=== PATIENT | female | born 1955 | race African-American/Black ===

== ENCOUNTER 2016-07-24 22:22 | Inpatient (IN) | payer MEDICARE, MEDICAID ==
[~2016-07-24] VITALS: Ht 165.1 cm; Wt 98.1 kg
[2016-07-24] MEDS ORDERED: INSLAN SQ (22:37)
[2016-07-24] MEDS ORDERED: AMIT25TA9 PO (22:37)
[2016-07-24] MEDS ORDERED: CLON.3 PO (22:37)
[2016-07-24] MEDS ORDERED: TRAZ-147 PO (22:37)
[2016-07-24] MEDS ORDERED: HYDR-309 PO (22:37)
[2016-07-24] MEDS ORDERED: PREG75 PO (22:37)
[2016-07-24] MEDS ORDERED: TRAM50TA4 PO (22:37)
[2016-07-24] MEDS ORDERED: INSNOV SQ (22:37)
[2016-07-25] VITALS (9 sets, daily range): BP systolic 125–235; BP diastolic 53–105
[2016-07-25 00:43] LABS: BASOPHILS # (AUTO) 0.05 K/uL (0.00-0.20); BASOPHILS % (AUTO) 0.3 % (0.0-2.0); EOSINOPHILS # (AUTO) 0.25 K/uL (0.00-0.70); EOSINOPHILS % (AUTO) 1.55 % (1.0-6.0); HEMATOCRIT 31.9 % (36-46); HEMOGLOBIN 10.6 g/dL (12.0-16.0); LYMPHOCYTES # (AUTO) 1.7 K/uL (1.0-4.8); LYMPHOCYTES % (AUTO) 10.8 % (22.0-44.0); MEAN CORPUSCULAR HGB CONC 33.1 G/dL (31.0-37.0); MEAN CORPUSCULAR VOLUME 85 fL (80-100); MONOCYTES # (AUTO) 1.1 K/uL (0.1-1.0); MONOCYTES % (AUTO) 6.7 % (2.0-9.0); NEUTROPHILS # (AUTO) 12.8 K/uL (1.8-7.7); NEUTROPHILS % (AUTO) 80.6 % (40.0-70.0); PLATELET COUNT (AUTO) 417 K/uL (150-450); RED BLOOD CELL COUNT(AUTO) 3.77 MIL/uL (4.00-5.20); RED CELL DISTRIBUTION WIDTH 16.1 % (11.5-14.5); WHITE BLOOD COUNT (AUTO) 15.8 K/uL (4.5-11.0)
[2016-07-25 00:51] LABS: CALCIUM, TOTAL 9.3 mg/dL (8.8-10.5); CREATININE 8.82 mg/dL (0.60-1.30); POTASSIUM 4.9 mmol/L (3.5-5.1)
[2016-07-25 00:57] LABS: ALBUMIN 3.7 g/dL (3.4-5.0); BILIRUBIN,TOTAL 0.5 mg/dL (0.1-1.0); TOTAL PROTEIN, SERUM 8.1 g/dL (6.4-8.2)
[2016-07-25] MEDS ORDERED: BENZONATATE 100 MG CAPSULE PO ONE (01:30)
[2016-07-25] MEDS ORDERED: ONDANSETRON HCL 4 MG/2 ML VIAL IVP ONE (01:45)
[2016-07-25] MEDS ORDERED: ACETAMINOPHEN 325 MG TABLET PO PRN ×2 (01:45→02:45)
[2016-07-25] MEDS ORDERED: 0.9% SODIUM CHLORIDE 10 ML SYRINGE IVP PRN ×2 (01:45→19:15)
[2016-07-25] MEDS ORDERED: HYDROmorphone 2 MG/ML SYRINGE IVP ONE (01:45)
[2016-07-25] MEDS ORDERED: ONDANSETRON HCL 4 MG/2 ML VIAL IVP PRN ×2 (01:45→02:45)
[2016-07-25] MEDS ORDERED: CefTRIAXone 1 GM/DEXTROSE 50 ML IV ONE (01:45)
[2016-07-25] MEDS ORDERED: MethylPREDNISolone SOD SUCC 125 MG/2 ML VIAL IVP ONE (02:00)
[2016-07-25] MEDS ORDERED: IPRATROPIUM BROMIDE 0.5 MG/2.5 ML NEB SOLUTION NEB ONE (02:00)
[2016-07-25] MEDS ORDERED: ALBUTEROL SULFATE 5 MG/ML 20 ML NEB SOLN [BULK] NEB ONE (02:00)
[2016-07-25 02:31] LABS: INFLUENZA TYPE B NEGATIVE FOR TYPE B (NEGATIVE)
[2016-07-25] MEDS ORDERED: OxyCODONE HCL/ACETAMINOPHEN 5-325 MG TABLET PO PRN (02:45)
[2016-07-25] MEDS ORDERED: ALBUTEROL SULFATE 2.5 MG/0.5 ML NEB SOLUTION NEB PRN (02:45)
[2016-07-25] MEDS ORDERED: BISACODYL 10 MG RECTAL RECTAL SUPPOSITORY PR PRN (02:45)
[2016-07-25] MEDS ORDERED: IPRATROPIUM BROMIDE 0.5 MG/2.5 ML NEB SOLUTION NEB PRN (02:45)
[2016-07-25] MEDS ORDERED: ZOLPIDEM TARTRATE 5 MG TABLET PO PRN (02:45)
[2016-07-25] MEDS ORDERED: CloNIDine HCL 0.1 MG TABLET PO ONE (02:45)
[2016-07-25] MEDS ORDERED: MAGNESIUM HYDROXIDE SUSPENSION 30 ML UDCUP PO PRN (02:45)
[2016-07-25] MEDS ORDERED: DEXTROSE 50%-WATER 25 GM/50 ML SYRINGE IVP PRN (02:45)
[2016-07-25] MEDS ORDERED: IPRATROPIUM BROMIDE 0.5 MG/2.5 ML NEB SOLUTION NEB SCH (03:00)
[2016-07-25] MEDS ORDERED: ALBUTEROL SULFATE 2.5 MG/0.5 ML NEB SOLUTION NEB SCH (03:00)
[2016-07-25] MEDS ORDERED: LABETALOL HCL 5 MG/ML 20 ML VIAL IVP PRN (05:00)
[2016-07-25 05:01] LABS: GLUCOSE,POINT OF CARE 173 MG/DL (70-110)
[2016-07-25] MEDS: LORazepam 2 MG/ML VIAL IVP PRN ×4 (05:22→18:31)
[2016-07-25] MEDS ORDERED: MORPHINE SULFATE 2 MG/ML SYRINGE IVP PRN (06:30)
[2016-07-25 11:32] LABS: GLUCOSE COMMENT 1 Received Meds; GLUCOSE,POINT OF CARE 193 MG/DL (70-110)
[2016-07-25] MEDS: AZITHROMYCIN 500 MG/NS 250 ML IV SCH (12:59)
[2016-07-25] MEDS: HEPARIN SODIUM,PORCINE 5,000 UNITS/ML VIAL SQ SCH ×2 (12:59→21:01)
[2016-07-25] MEDS: AMITRIPTYLINE HCL 25 MG TABLET PO SCH (12:59)
[2016-07-25] MEDS: PREGABALIN 75 MG CAPSULE PO SCH ×2 (12:59→21:01)
[2016-07-25] MEDS ORDERED: SODIUM CHLORIDE 0.9% 500 ML IV ONE (13:06)
[2016-07-25] MEDS: INSULIN ASPART 100 UNITS/ML SQ PRN ×3 (13:46→21:02)
[2016-07-25] MEDS: TraZODone HCL 100 MG TABLET PO SCH (21:01)
[2016-07-26 04:31] VITALS: BP 120/72
[2016-07-26] MEDS: INSULIN ASPART 100 UNITS/ML SQ PRN ×3 (06:06→20:58)
[2016-07-26 06:20] LABS: ALBUMIN 3.7 g/dL (3.4-5.0); BILIRUBIN,TOTAL 0.4 mg/dL (0.1-1.0); CALCIUM, TOTAL 9.9 mg/dL (8.8-10.5); CREATININE 7.1 mg/dL (0.60-1.30); MAGNESIUM 2.7 mg/dL (1.80-2.40); PHOSPHORUS 8.2 mg/dL (2.5-4.9); POTASSIUM 4.9 mmol/L (3.5-5.1); THYROID STIMULATING HORMONE 0.27 uIU/mL (0.36-3.74); TOTAL PROTEIN, SERUM 8.2 g/dL (6.4-8.2)
[2016-07-26 06:51] LABS: BASOPHILS % (AUTO) 0.3 % (0.0-2.0); EOSINOPHILS % (AUTO) 0.4 % (1.0-6.0); HEMATOCRIT 34.7 % (36-46); LYMPHOCYTES # (AUTO) 1.6 K/uL (1.0-4.8); LYMPHOCYTES % (AUTO) 14.3 % (22.0-44.0); MEAN CORPUSCULAR HEMOGLOBIN 27.4 pg (26.0-34.0); MEAN CORPUSCULAR HGB CONC 31.6 G/dL (31.0-37.0); MEAN CORPUSCULAR VOLUME 87 fL (80-100); MONOCYTES # (AUTO) 1.6 K/uL (0.1-1.0); MONOCYTES % (AUTO) 14.5 % (2.0-9.0); NEUTROPHILS # (AUTO) 7.7 K/uL (1.8-7.7); NEUTROPHILS % (AUTO) 70.5 % (40.0-70.0); PLATELET COUNT (AUTO) 484 K/uL (150-450); RED CELL DISTRIBUTION WIDTH 16.3 % (11.5-14.5)
[2016-07-26 07:15] LABS: HEMOGLOBIN A1C 7.8 % (4.5-6.2)
[2016-07-26 07:31] VITALS: BP 147/79
[2016-07-26] MEDS: AZITHROMYCIN 500 MG/NS 250 ML IV SCH (08:19)
[2016-07-26] MEDS: HEPARIN SODIUM,PORCINE 5,000 UNITS/ML VIAL SQ SCH ×2 (08:20→19:49)
[2016-07-26] MEDS: AMITRIPTYLINE HCL 25 MG TABLET PO SCH (08:20)
[2016-07-26] MEDS: PREGABALIN 75 MG CAPSULE PO SCH ×2 (08:20→19:48)
[2016-07-26] MEDS: VITAMIN B COMP/VIT C/FOLIC ACID CAPSULE PO SCH (08:38)
[2016-07-26 08:47] LABS: GLUCOSE COMMENT 1 Received Meds; GLUCOSE,POINT OF CARE 178 MG/DL (70-110)
[2016-07-26 08:47] LABS: GLUCOSE COMMENT 1 Received Meds; GLUCOSE,POINT OF CARE 176 MG/DL (70-110)
[2016-07-26 08:47] LABS: GLUCOSE COMMENT 1 Received Meds; GLUCOSE,POINT OF CARE 143 MG/DL (70-110)
[2016-07-26 11:41] VITALS: BP_SYST 147
[2016-07-26 16:03] VITALS: BP 116/51
[2016-07-26 17:07] LABS: GLUCOSE,POINT OF CARE 110 MG/DL (70-110)
[2016-07-26 17:07] LABS: GLUCOSE COMMENT 1 Received Meds; GLUCOSE,POINT OF CARE 149 MG/DL (70-110)
[2016-07-26] MEDS: GuaiFENesin/D-METHORPHAN [SUGAR-FREE] 200-20MG/10 ML SYRUP UDCUP PO PRN (18:50)
[2016-07-26] MEDS: TraZODone HCL 100 MG TABLET PO SCH (19:49)
[2016-07-26 19:58] VITALS: BP 150/77
[2016-07-27] VITALS: BP 145/83
[2016-07-27] MEDS: BENZONATATE 100 MG CAPSULE PO SCH ×4 (00:06→23:54)
[2016-07-27 00:42] LABS: GLUCOSE,POINT OF CARE 202 MG/DL (70-110)
[2016-07-27 04:38] VITALS: BP 164/71
[2016-07-27] MEDS: INSULIN ASPART 100 UNITS/ML SQ PRN ×4 (05:21→20:46)
[2016-07-27 05:50] LABS: BASOPHILS % (AUTO) 0.5 % (0.0-2.0); EOSINOPHILS % (AUTO) 2.3 % (1.0-6.0); HEMATOCRIT 31.6 % (36-46); HEMOGLOBIN 10.2 g/dL (12.0-16.0); LYMPHOCYTES # (AUTO) 3.1 K/uL (1.0-4.8); LYMPHOCYTES % (AUTO) 30.8 % (22.0-44.0); MEAN CORPUSCULAR HEMOGLOBIN 27.8 pg (26.0-34.0); MEAN CORPUSCULAR HGB CONC 32.1 G/dL (31.0-37.0); MEAN CORPUSCULAR VOLUME 86 fL (80-100); MONOCYTES # (AUTO) 1.1 K/uL (0.1-1.0); MONOCYTES % (AUTO) 11.1 % (2.0-9.0); NEUTROPHILS # (AUTO) 5.6 K/uL (1.8-7.7); NEUTROPHILS % (AUTO) 55.3 % (40.0-70.0); PLATELET COUNT (AUTO) 417 K/uL (150-450); RED BLOOD CELL COUNT(AUTO) 3.66 MIL/uL (4.00-5.20); RED CELL DISTRIBUTION WIDTH 15.7 % (11.5-14.5); WHITE BLOOD COUNT (AUTO) 10.1 K/uL (4.5-11.0)
[2016-07-27 06:31] LABS: ALBUMIN 3.3 g/dL (3.4-5.0); BILIRUBIN,TOTAL 0.4 mg/dL (0.1-1.0); CALCIUM, TOTAL 8.9 mg/dL (8.8-10.5); CREATININE 9.32 mg/dL (0.60-1.30); POTASSIUM 5.3 mmol/L (3.5-5.1); TOTAL PROTEIN, SERUM 7.5 g/dL (6.4-8.2)
[2016-07-27 07:02] LABS: GLUCOSE,POINT OF CARE 154 MG/DL (70-110)
[2016-07-27] MEDS ORDERED: SODIUM CHLORIDE 0.9% 2,000 ML IV ONE (07:31)
[2016-07-27 08:09] VITALS: BP 154/87
[2016-07-27] MEDS: AZITHROMYCIN 500 MG/NS 250 ML IV SCH (08:11)
[2016-07-27] MEDS: HEPARIN SODIUM,PORCINE 5,000 UNITS/ML VIAL SQ SCH ×2 (08:13→20:46)
[2016-07-27] MEDS: PREGABALIN 75 MG CAPSULE PO SCH ×2 (08:13→20:46)
[2016-07-27] MEDS: AMITRIPTYLINE HCL 25 MG TABLET PO SCH (08:13)
[2016-07-27] MEDS: VITAMIN B COMP/VIT C/FOLIC ACID CAPSULE PO SCH (08:13)
[2016-07-27] MEDS: LORazepam 2 MG/ML VIAL IVP PRN (10:02)
[2016-07-27] MEDS: GuaiFENesin/D-METHORPHAN [SUGAR-FREE] 200-20MG/10 ML SYRUP UDCUP PO PRN ×2 (10:05→15:03)
[2016-07-27 11:52] LABS: GLUCOSE,POINT OF CARE 158 MG/DL (70-110)
[2016-07-27 15:15] VITALS: BP 126/63
[2016-07-27 17:52] LABS: GLUCOSE COMMENT 1 Received Meds; GLUCOSE,POINT OF CARE 245 MG/DL (70-110)
[2016-07-27 19:57] VITALS: BP 149/66
[2016-07-27] MEDS: TraZODone HCL 100 MG TABLET PO SCH (20:46)
[2016-07-27 20:57] LABS: GLUCOSE COMMENT 1 Received Meds; GLUCOSE,POINT OF CARE 160 MG/DL (70-110)
[2016-07-27 23:36] VITALS: BP 158/75
[2016-07-28 05:03] VITALS: BP 130/70
[2016-07-28 06:24] LABS: BASOPHILS % (AUTO) 0.4 % (0.0-2.0); EOSINOPHILS % (AUTO) 2.2 % (1.0-6.0); HEMATOCRIT 32.3 % (36-46); HEMOGLOBIN 10.4 g/dL (12.0-16.0); LYMPHOCYTES # (AUTO) 2.4 K/uL (1.0-4.8); LYMPHOCYTES % (AUTO) 19.2 % (22.0-44.0); MEAN CORPUSCULAR HGB CONC 32.1 G/dL (31.0-37.0); MEAN CORPUSCULAR VOLUME 87 fL (80-100); MONOCYTES # (AUTO) 1.1 K/uL (0.1-1.0); MONOCYTES % (AUTO) 8.8 % (2.0-9.0); NEUTROPHILS # (AUTO) 8.5 K/uL (1.8-7.7); NEUTROPHILS % (AUTO) 69.4 % (40.0-70.0); PLATELET COUNT (AUTO) 417 K/uL (150-450); RED BLOOD CELL COUNT(AUTO) 3.71 MIL/uL (4.00-5.20); RED CELL DISTRIBUTION WIDTH 15.8 % (11.5-14.5); WHITE BLOOD COUNT (AUTO) 12.3 K/uL (4.5-11.0)
[2016-07-28 07:11] LABS: ALBUMIN 3.4 g/dL (3.4-5.0); BILIRUBIN,TOTAL 0.4 mg/dL (0.1-1.0); CALCIUM, TOTAL 9.3 mg/dL (8.8-10.5); CREATININE 6.8 mg/dL (0.60-1.30); POTASSIUM 5.5 mmol/L (3.5-5.1); TOTAL PROTEIN, SERUM 7.6 g/dL (6.4-8.2)
[2016-07-28 07:24] VITALS: BP 157/80
[2016-07-28] MEDS: AZITHROMYCIN 500 MG/NS 250 ML IV SCH (08:00)
[2016-07-28] MEDS: PREGABALIN 75 MG CAPSULE PO SCH (08:00)
[2016-07-28] MEDS: BENZONATATE 100 MG CAPSULE PO SCH ×2 (08:00→16:19)
[2016-07-28] MEDS: AMITRIPTYLINE HCL 25 MG TABLET PO SCH (08:00)
[2016-07-28] MEDS: HEPARIN SODIUM,PORCINE 5,000 UNITS/ML VIAL SQ SCH (08:01)
[2016-07-28] MEDS: VITAMIN B COMP/VIT C/FOLIC ACID CAPSULE PO SCH (08:01)
[2016-07-28 11:10] VITALS: BP 152/68
[2016-07-28] MEDS: INSULIN ASPART 100 UNITS/ML SQ PRN (11:51)
[2016-07-28] MEDS ORDERED: SODIUM POLYSTYRENE SULFONATE 15 GM/60 ML SUSPENSION BOTTLE PO ONE (12:00)
[2016-07-28 12:22] LABS: GLUCOSE COMMENT 1 Received Meds; GLUCOSE,POINT OF CARE 246 MG/DL (70-110)
[2016-07-28] MEDS ORDERED: AmLODIPine BESYLATE 5 MG TABLET PO SCH (13:00)
[2016-07-28 15:12] VITALS: BP 156/80
[2016-07-28 17:22] LABS: GLUCOSE,POINT OF CARE 139 MG/DL (70-110)
== END 2016-07-28 19:04 | DRG 871 ==
LOC: EMS 22:25 → 6N 07-25 02:08
PROVIDERS: ADMIT Internal Medicine; ATTEND Internal Medicine
PROC: 5A1D60Z (ICD-10-PCS; principal; 2016-07-25)
DX: A41.9 Sepsis, unspecified organism (principal); J18.9 Pneumonia, unspecified organism; N18.6 End stage renal disease; J44.0 Chronic obstructive pulmonary disease with (acute) lower respiratory infection; I42.9 Cardiomyopathy, unspecified; I13.2 Hypertensive heart and chronic kidney disease with heart failure and with stage 5 chronic kidney disease, or end stage renal disease; D63.8 Anemia in other chronic diseases classified elsewhere; E78.5 Hyperlipidemia, unspecified; I25.9 Chronic ischemic heart disease, unspecified; I51.7 Cardiomegaly; I50.9 Heart failure, unspecified; F17.210 Nicotine dependence, cigarettes, uncomplicated; D63.1 Anemia in chronic kidney disease; E11.65 Type 2 diabetes mellitus with hyperglycemia; E11.22 Type 2 diabetes mellitus with diabetic chronic kidney disease; H93.19 Tinnitus, unspecified ear; E87.5 Hyperkalemia; Z79.899 Other long term (current) drug therapy; Z88.0 Allergy status to penicillin; Z79.4 Long term (current) use of insulin; Z79.1 Long term (current) use of non-steroidal anti-inflammatories (NSAID); Z98.890 Other specified postprocedural states; Z90.710 Acquired absence of both cervix and uterus; Z99.2 Dependence on renal dialysis
CPT/HCPCS: 82306; 82962; 83036; 83605; 83735; 84100; 84443; 87040; 87081; 87340; 87804; 90935; 93005; 93306; 96365; 96375; 99285; J0456; J0696; J1170; J1644; J2060; J2270; J2405; J2930; J3490; J7030; J7040

== ENCOUNTER 2016-08-01 18:46 | Inpatient (IN) | payer MEDICARE, MEDICAID ==
[~2016-08-01] VITALS: Ht 170.2 cm; Wt 103.2 kg
[~2016-08-01 18:46] MED LIST: AMIT25TA9 PO; CLON.3 PO; HYDR-309 PO; INSLAN SQ; INSNOV SQ; PREG75 PO; TRAM50TA4 PO; TRAZ-147 PO
[2016-08-01 19:19] LABS: BASOPHILS % (AUTO) 0.4 % (0.0-2.0); EOSINOPHILS % (AUTO) 1.2 % (1.0-6.0); HEMOGLOBIN 9.4 g/dL (12.0-16.0); LYMPHOCYTES # (AUTO) 1.5 K/uL (1.0-4.8); LYMPHOCYTES % (AUTO) 9.4 % (22.0-44.0); MEAN CORPUSCULAR HEMOGLOBIN 27.8 pg (26.0-34.0); MEAN CORPUSCULAR HGB CONC 32.5 G/dL (31.0-37.0); MEAN CORPUSCULAR VOLUME 86 fL (80-100); MONOCYTES # (AUTO) 0.7 K/uL (0.1-1.0); MONOCYTES % (AUTO) 4.4 % (2.0-9.0); NEUTROPHILS # (AUTO) 13.1 K/uL (1.8-7.7); NEUTROPHILS % (AUTO) 84.6 % (40.0-70.0); PLATELET COUNT (AUTO) 418 K/uL (150-450); RED BLOOD CELL COUNT(AUTO) 3.39 MIL/uL (4.00-5.20); WHITE BLOOD COUNT (AUTO) 15.5 K/uL (4.5-11.0)
[2016-08-01 19:32] LABS: PROTHROMBIN TIME 10.3 SEC (9.4-11.6)
[2016-08-01 19:39] LABS: B-TYPE NATRIURETIC PEPTIDE 1210 pg/mL (0-100)
[2016-08-01 19:46] LABS: ANION GAP 12 mmol/L (8-16); CALCIUM, TOTAL 9.3 mg/dL (8.8-10.5); CARBON DIOXIDE 30 mmol/L (22-29); CHLORIDE 95 mmol/L (98-107); CREATININE 4.25 mg/dL (0.60-1.30); GLOMERULAR FILTR. RATE CALC 13 mL/min (>60); POTASSIUM 4.7 mmol/L (3.5-5.1); SODIUM SERUM 137 mmol/L (136-145); UREA NITROGEN, BLOOD 27 mg/dL (7-18)
[2016-08-01 20:09] LABS: ALANINE AMINOTRANSFERASE 14 U/L (12-78); ALBUMIN 3.5 g/dL (3.4-5.0); ASPARTATE AMINOTRANSFERASE 13 U/L (15-37); BILIRUBIN,TOTAL 0.4 mg/dL (0.1-1.0); CREATINE KINASE MB 2.2 ng/mL (0-5); CREATINE KINASE, TOTAL 88 U/L (26-192); TOTAL PROTEIN, SERUM 7.9 g/dL (6.4-8.2)
[2016-08-01 21:48] LABS: APPEARANCE,URINE CLEAR (CLEAR); GLUCOSE, URINE (UA) 100 mg/dL (NEGATIVE); KETONES,URINE NEGATIVE (NEGATIVE); LEUKOCYTE ESTERASE ,URINE NEGATIVE (NEGATIVE); OCCULT BLOOD,URINE NEGATIVE (NEGATIVE); PROTEIN,URINE SEE CONFIRM (NEGATIVE)
[2016-08-01 21:53] LABS: ADD UA MICROSCOPIC YES
[2016-08-01 22:02] LABS: SULFOSALICYLIC ACID,URINE 2+ (Negative)
[2016-08-01 22:04] LABS: SQUAMOUS EPITHELIAL CELL,UR Few /LPF (None Seen)
[2016-08-01 22:05] LABS: RBC,URINE 0-2 /HPF (0-2); WBC,URINE 0-2 /HPF (0-5)
[2016-08-01] MEDS ORDERED: HEPARIN SODIUM 25000 UNITS/D5W 250 ML IV PRN ×2 (23:00→23:30)
[2016-08-01] MEDS ORDERED: ASPIRIN 81 MG CHEWABLE TABLET PO ONE (23:15)
[2016-08-01] MEDS ORDERED: HEPARIN SODIUM,PORCINE 5,000 UNITS/ML VIAL IVP ONE (23:30)
[2016-08-01] MEDS ORDERED: HEPARIN SODIUM,PORCINE 5,000 UNITS/ML VIAL IVP PRN ×2 (23:30)
[2016-08-02 00:12] VITALS: BP 183/88
[2016-08-02 04:24] VITALS: BP 174/82
[2016-08-02 07:02] VITALS: BP 149/77
== END 2016-08-02 08:50 | disposition left against medical advice (07) | DRG 70 ==
LOC: EMS 18:49 → 5S 22:37
PROVIDERS: ADMIT Hospitalist; ATTEND Hospitalist
DX: G93.40 Encephalopathy, unspecified (principal); N18.6 End stage renal disease; I13.2 Hypertensive heart and chronic kidney disease with heart failure and with stage 5 chronic kidney disease, or end stage renal disease; E11.22 Type 2 diabetes mellitus with diabetic chronic kidney disease; F03.90 Unspecified dementia, unspecified severity, without behavioral disturbance, psychotic disturbance, mood disturbance, and anxiety; I50.9 Heart failure, unspecified; F17.210 Nicotine dependence, cigarettes, uncomplicated; J44.9 Chronic obstructive pulmonary disease, unspecified; Z79.899 Other long term (current) drug therapy; Z79.891 Long term (current) use of opiate analgesic; Z79.1 Long term (current) use of non-steroidal anti-inflammatories (NSAID); Z79.4 Long term (current) use of insulin; Z88.0 Allergy status to penicillin; Z90.710 Acquired absence of both cervix and uterus; Z99.2 Dependence on renal dialysis; Z98.890 Other specified postprocedural states
CPT/HCPCS: 87081; 93005; 96374; 99285; J1644

== ENCOUNTER 2016-09-17 22:37 | Inpatient (IN) | payer MEDICARE, MEDICAID ==
[~2016-09-17] VITALS: Ht 165.1 cm; Wt 96.9 kg
[2016-09-17] MEDS ORDERED: NITROGLYCERIN 2% (1 GM=INCH) PACKET TP ONE (23:00)
[2016-09-17] MEDS ORDERED: MORPHINE SULFATE 4 MG/ML SYRINGE IVP ONE (23:00)
[2016-09-17 23:18] LABS: BASOPHILS % (AUTO) 0.5 % (0.0-2.0); EOSINOPHILS % (AUTO) 2.7 % (1.0-6.0); HEMOGLOBIN 10.9 g/dL (12.0-16.0); LYMPHOCYTES # (AUTO) 1.8 K/uL (1.0-4.8); LYMPHOCYTES % (AUTO) 14.3 % (22.0-44.0); MEAN CORPUSCULAR HEMOGLOBIN 27.8 pg (26.0-34.0); MEAN CORPUSCULAR HGB CONC 31.9 G/dL (31.0-37.0); MEAN CORPUSCULAR VOLUME 87 fL (80-100); MONOCYTES # (AUTO) 0.4 K/uL (0.1-1.0); NEUTROPHILS # (AUTO) 10.3 K/uL (1.8-7.7); NEUTROPHILS % (AUTO) 79.5 % (40.0-70.0); PLATELET COUNT (AUTO) 454 K/uL (150-450); RED BLOOD CELL COUNT(AUTO) 3.92 MIL/uL (4.00-5.20); RED CELL DISTRIBUTION WIDTH 15.2 % (11.5-14.5); WHITE BLOOD COUNT (AUTO) 12.9 K/uL (4.5-11.0)
[2016-09-17 23:43] LABS: CALCIUM, TOTAL 8.8 mg/dL (8.8-10.5); CREATININE 6.26 mg/dL (0.60-1.30); POTASSIUM 4.3 mmol/L (3.5-5.1)
[2016-09-17 23:49] LABS: ALBUMIN 3.4 g/dL (3.4-5.0); BILIRUBIN,TOTAL 0.3 mg/dL (0.1-1.0); TOTAL PROTEIN, SERUM 8.1 g/dL (6.4-8.2)
[2016-09-18] VITALS (8 sets, daily range): BP systolic 126–207; BP diastolic 52–91
[2016-09-18] MEDS ORDERED: FUROSEMIDE 40 MG/4 ML VIAL IVP ONE (01:00)
[2016-09-18] MEDS ORDERED: LABETALOL HCL 5 MG/ML 20 ML VIAL IVP ONE (01:15)
[2016-09-18] MEDS ORDERED: 0.9% SODIUM CHLORIDE 10 ML SYRINGE IVP PRN ×2 (01:30→02:30)
[2016-09-18] MEDS ORDERED: ACETAMINOPHEN 325 MG TABLET PO PRN (01:30)
[2016-09-18] MEDS ORDERED: ONDANSETRON HCL 4 MG/2 ML VIAL IVP PRN ×2 (01:30→02:30)
[2016-09-18] MEDS ORDERED: IPRATROPIUM BROMIDE 0.5 MG/2.5 ML NEB SOLUTION NEB PRN (02:15)
[2016-09-18] MEDS ORDERED: HYDROCODONE/ACETAMINOPHEN 5-325 MG TABLET PO PRN (02:15)
[2016-09-18] MEDS ORDERED: ALBUTEROL SULFATE 2.5 MG/0.5 ML NEB SOLUTION NEB PRN (02:15)
[2016-09-18] MEDS ORDERED: SODIUM CHLORIDE 0.9% 500 ML IV ONE (02:38)
[2016-09-18] MEDS ORDERED: DEXTROSE 50%-WATER 25 GM/50 ML SYRINGE IVP PRN (03:00)
[2016-09-18] MEDS ORDERED: LEVOFLOXACIN 750 MG/D5% WATER 150 ML IV ONE (03:00)
[2016-09-18] MEDS: MethylPREDNISolone SOD SUCC 125 MG/2 ML VIAL IVP SCH ×3 (03:20→17:35)
[2016-09-18] MEDS: INSULIN ASPART 100 UNITS/ML SQ PRN ×5 (03:25→21:32)
[2016-09-18] MEDS ORDERED: 0.9% SODIUM CHLORIDE 5 ML NEB SOLUTION NEB ONE (04:34)
[2016-09-18] MEDS: ALBUTEROL SULFATE 2.5 MG/0.5 ML NEB SOLUTION NEB SCH ×3 (07:52→20:31)
[2016-09-18] MEDS: IPRATROPIUM BROMIDE 0.5 MG/2.5 ML NEB SOLUTION NEB SCH ×3 (07:52→20:31)
[2016-09-18] MEDS ORDERED: HEPARIN SODIUM,PORCINE 5,000 UNITS/ML VIAL IVP PRN ×2 (09:30)
[2016-09-18] MEDS ORDERED: HEPARIN SODIUM,PORCINE 5,000 UNITS/ML VIAL IVP ONE (09:30)
[2016-09-18] MEDS: FUROSEMIDE 40 MG/4 ML VIAL IVP SCH (09:32)
[2016-09-18] MEDS: DOCUSATE SODIUM 100 MG CAPSULE PO SCH ×2 (09:33→21:30)
[2016-09-18] MEDS: PANTOPRAZOLE SODIUM 40 MG/VIAL IVP SCH (09:33)
[2016-09-18] MEDS: AMITRIPTYLINE HCL 25 MG TABLET PO SCH (09:33)
[2016-09-18] MEDS: OxyCODONE HCL/ACETAMINOPHEN 5-325 MG TABLET PO PRN ×2 (09:33→18:40)
[2016-09-18] MEDS ORDERED: SODIUM CHLORIDE 0.9% 2,000 ML IV ONE ×2 (10:19→12:55)
[2016-09-18 10:22] LABS: EOSINOPHILS % (AUTO) 0.1 % (1.0-6.0); HEMATOCRIT 32.3 % (36-46); HEMOGLOBIN 10.4 g/dL (12.0-16.0); LYMPHOCYTES # (AUTO) 0.5 K/uL (1.0-4.8); LYMPHOCYTES % (AUTO) 4.3 % (22.0-44.0); MEAN CORPUSCULAR HGB CONC 32.1 G/dL (31.0-37.0); MEAN CORPUSCULAR VOLUME 87 fL (80-100); MONOCYTES % (AUTO) 0.4 % (2.0-9.0); NEUTROPHILS # (AUTO) 11.1 K/uL (1.8-7.7); NEUTROPHILS % (AUTO) 95.2 % (40.0-70.0); PLATELET COUNT (AUTO) 408 K/uL (150-450); RED CELL DISTRIBUTION WIDTH 15.3 % (11.5-14.5); WHITE BLOOD COUNT (AUTO) 11.7 K/uL (4.5-11.0)
[2016-09-18] MEDS: ASPIRIN 81 MG CHEWABLE TABLET PO SCH (10:24)
[2016-09-18] MEDS: HEPARIN SODIUM 25000 UNITS/D5W 250 ML IV PRN (10:37)
[2016-09-18] MEDS: ENALAPRIL MALEATE 5 MG TABLET PO SCH (10:48)
[2016-09-18] MEDS: HydrALAZINE HCL 20 MG/ML VIAL IVP PRN ×2 (12:33→18:40)
[2016-09-18 13:56] LABS: GLUCOSE COMMENT 1 Received Meds; GLUCOSE,POINT OF CARE 213 MG/DL (70-110)
[2016-09-18 13:56] LABS: GLUCOSE,POINT OF CARE 218 MG/DL (70-110)
[2016-09-18 18:26] LABS: GLUCOSE COMMENT 1 Received Meds; GLUCOSE,POINT OF CARE 222 MG/DL (70-110)
[2016-09-18 18:26] LABS: GLUCOSE COMMENT 1 Received Meds; GLUCOSE,POINT OF CARE 308 MG/DL (70-110)
[2016-09-18] MEDS: SIMVASTATIN 5 MG TABLET PO SCH (21:31)
[2016-09-19] VITALS (17 sets, daily range): BP systolic 94–168; BP diastolic 44–86
[2016-09-19] MEDS: MethylPREDNISolone SOD SUCC 125 MG/2 ML VIAL IVP SCH ×3 (00:22→16:00)
[2016-09-19] MEDS: HEPARIN SODIUM 25000 UNITS/D5W 250 ML IV PRN (01:34)
[2016-09-19] MEDS: ALBUTEROL SULFATE 2.5 MG/0.5 ML NEB SOLUTION NEB SCH ×4 (02:44→20:05)
[2016-09-19] MEDS: IPRATROPIUM BROMIDE 0.5 MG/2.5 ML NEB SOLUTION NEB SCH ×4 (02:44→20:05)
[2016-09-19 05:43] LABS: GLUCOSE,POINT OF CARE 315 MG/DL (70-110)
[2016-09-19] MEDS: INSULIN ASPART 100 UNITS/ML SQ PRN ×4 (05:43→21:32)
[2016-09-19 05:47] LABS: GLUCOSE,POINT OF CARE 336 MG/DL (70-110)
[2016-09-19 05:49] LABS: EOSINOPHILS % (AUTO) 0 % (1.0-6.0); HEMATOCRIT 31.4 % (36-46); HEMOGLOBIN 9.7 g/dL (12.0-16.0); LYMPHOCYTES # (AUTO) 0.8 K/uL (1.0-4.8); LYMPHOCYTES % (AUTO) 7.5 % (22.0-44.0); MEAN CORPUSCULAR HEMOGLOBIN 27.1 pg (26.0-34.0); MEAN CORPUSCULAR HGB CONC 30.8 G/dL (31.0-37.0); MEAN CORPUSCULAR VOLUME 88 fL (80-100); MONOCYTES # (AUTO) 0.1 K/uL (0.1-1.0); MONOCYTES % (AUTO) 1.4 % (2.0-9.0); NEUTROPHILS # (AUTO) 9.7 K/uL (1.8-7.7); PLATELET COUNT (AUTO) 411 K/uL (150-450); RED BLOOD CELL COUNT(AUTO) 3.58 MIL/uL (4.00-5.20); RED CELL DISTRIBUTION WIDTH 15.8 % (11.5-14.5); WHITE BLOOD COUNT (AUTO) 10.6 K/uL (4.5-11.0)
[2016-09-19 06:00] LABS: ALBUMIN 3.5 g/dL (3.4-5.0); BILIRUBIN,TOTAL 0.3 mg/dL (0.1-1.0); CALCIUM, TOTAL 9.8 mg/dL (8.8-10.5); CHOL/HDL RATIO 4.8 (3.9-5.7); CREATININE 5.07 mg/dL (0.60-1.30); MAGNESIUM 2.3 mg/dL (1.80-2.40); PHOSPHORUS 6.5 mg/dL (2.5-4.9); POTASSIUM 5.4 mmol/L (3.5-5.1)
[2016-09-19 06:58] LABS: NEUTROPHILS % (AUTO) 91.1 % (40.0-70.0)
[2016-09-19] MEDS ORDERED: BENZOCAINE/MENTHOL LOZENGE [8 LOZENGES/PACKET] PO PRN (08:30)
[2016-09-19] MEDS ORDERED: LIDOCAINE HCL/PF 1% 30 ML VIAL ONE (09:04)
[2016-09-19] MEDS ORDERED: IOHEXOL 300 MG/ML 150 ML VIAL ONE (09:04)
[2016-09-19] MEDS ORDERED: SODIUM BICARBONATE 50 MEQ/50 ML VIAL ONE (09:04)
[2016-09-19] MEDS ORDERED: HEPARIN SODIUM 1000 UNITS/NS 1,000 ML ONE (09:04)
[2016-09-19] MEDS: ASPIRIN 81 MG CHEWABLE TABLET PO SCH (09:17)
[2016-09-19] MEDS: FUROSEMIDE 40 MG/4 ML VIAL IVP SCH (09:17)
[2016-09-19] MEDS: PANTOPRAZOLE SODIUM 40 MG/VIAL IVP SCH (09:17)
[2016-09-19] MEDS: DOCUSATE SODIUM 100 MG CAPSULE PO SCH ×2 (09:18→21:28)
[2016-09-19] MEDS: AMITRIPTYLINE HCL 25 MG TABLET PO SCH (09:18)
[2016-09-19] MEDS: ENALAPRIL MALEATE 5 MG TABLET PO SCH ×2 (09:18→21:28)
[2016-09-19] MEDS ORDERED: FentaNYL CITRATE-PF 100 MCG/2 ML VIAL ONE (09:34)
[2016-09-19] MEDS ORDERED: MIDAZOLAM HCL 2 MG/2 ML VIAL ONE (09:35)
[2016-09-19] MEDS ORDERED: VERAPAMIL HCL 2.5 MG/ML 2 ML VIAL ONE (10:04)
[2016-09-19] MEDS ORDERED: SODIUM CHLORIDE 0.9% 500 ML IV ONE (10:05)
[2016-09-19] MEDS ORDERED: NITROGLYCERIN 50 MG/D5% WATER 250 ML ONE (10:05)
[2016-09-19] MEDS ORDERED: MIDAZOLAM HCL 2 MG/2 ML VIAL IVP ONE ×2 (10:07→10:46)
[2016-09-19] MEDS ORDERED: FentaNYL CITRATE-PF 100 MCG/2 ML VIAL IVP ONE ×2 (10:07→10:46)
[2016-09-19] MEDS ORDERED: LIDOCAINE 1% 30 ML/SOD BICARB 8.4% 4 ML SQ ONE (10:14)
[2016-09-19] MEDS ORDERED: HEPARIN SODIUM 1000 UNITS/NS 1,000 ML IARTER ONE (10:15)
[2016-09-19] MEDS ORDERED: HEPARIN SODIUM,PORCINE 5,000 UNITS/ML VIAL IVP ONE (10:15)
[2016-09-19] MEDS ORDERED: NITROGLYCERIN/D5W 50 MG/250 ML IV BOTTLE IARTER ONE ×2 (10:15→11:21)
[2016-09-19] MEDS ORDERED: VERAPAMIL HCL 2.5 MG/ML 2 ML VIAL IARTER ONE ×2 (10:15→11:21)
[2016-09-19] MEDS ORDERED: IOHEXOL 300 MG/ML 150 ML VIAL IARTER ONE (10:15)
[2016-09-19] MEDS ORDERED: LABETALOL HCL 5 MG/ML 20 ML VIAL IVP ONE ×3 (10:48→11:03)
[2016-09-19] MEDS ORDERED: IOHEXOL 300 MG/ML 100 ML VIAL IARTER ONE (10:48)
[2016-09-19] MEDS ORDERED: HydrALAZINE HCL 20 MG/ML VIAL IVP ONE ×3 (10:53→11:12)
[2016-09-19] MEDS ORDERED: IOHEXOL 300 MG/ML 100 ML VIAL ONE ×2 (10:55→11:04)
[2016-09-19] MEDS ORDERED: HydrALAZINE HCL 20 MG/ML VIAL ONE ×2 (10:57→11:16)
[2016-09-19] MEDS: OxyCODONE HCL/ACETAMINOPHEN 5-325 MG TABLET PO PRN (12:27)
[2016-09-19] MEDS ORDERED: IOVERSOL 350 MG/ML 150 ML VIAL ONE (13:53)
[2016-09-19] MEDS ORDERED: SODIUM CHLORIDE 0.9% 100 ML ONE (13:53)
[2016-09-19] MEDS ORDERED: MORPHINE SULFATE 2 MG/ML SYRINGE IVP ONE (14:30)
[2016-09-19] MEDS ORDERED: MANNITOL 25%-12.5 GM/50 ML VIAL IVP PRN (14:45)
[2016-09-19 15:56] LABS: GLUCOSE,POINT OF CARE 225 MG/DL (70-110)
[2016-09-19] MEDS ORDERED: SODIUM CHLORIDE 0.9% 2,000 ML IV ONE (18:55)
[2016-09-19] MEDS: TICAGRELOR 90 MG TABLET PO SCH (21:26)
[2016-09-19] MEDS: SIMVASTATIN 5 MG TABLET PO SCH (21:28)
[2016-09-19 23:07] LABS: GLUCOSE,POINT OF CARE 329 MG/DL (70-110)
[2016-09-20] VITALS (10 sets, daily range): BP systolic 86–148; BP diastolic 50–85
[2016-09-20] MEDS: MethylPREDNISolone SOD SUCC 125 MG/2 ML VIAL IVP SCH ×4 (00:44→23:17)
[2016-09-20] MEDS: GuaiFENesin/D-METHORPHAN [SUGAR-FREE] 200-20MG/10 ML SYRUP UDCUP PO PRN ×3 (00:46→21:06)
[2016-09-20] MEDS: ALBUTEROL SULFATE 2.5 MG/0.5 ML NEB SOLUTION NEB SCH ×4 (01:50→20:03)
[2016-09-20] MEDS: IPRATROPIUM BROMIDE 0.5 MG/2.5 ML NEB SOLUTION NEB SCH ×4 (01:50→20:03)
[2016-09-20] MEDS ORDERED: SODIUM CHLORIDE 0.9% 250 ML IV ONE (03:11)
[2016-09-20] MEDS: LEVOFLOXACIN 500 MG/D5% WATER 100 ML IV SCH (03:21)
[2016-09-20 05:14] LABS: EOSINOPHILS % (AUTO) 0.03 % (1.0-6.0); HEMATOCRIT 28.3 % (36-46); HEMOGLOBIN 9.2 g/dL (12.0-16.0); LYMPHOCYTES # (AUTO) 0.4 K/uL (1.0-4.8); LYMPHOCYTES % (AUTO) 4.4 % (22.0-44.0); MEAN CORPUSCULAR HEMOGLOBIN 28.4 pg (26.0-34.0); MEAN CORPUSCULAR HGB CONC 32.6 G/dL (31.0-37.0); MEAN CORPUSCULAR VOLUME 87 fL (80-100); MONOCYTES # (AUTO) 0.2 K/uL (0.1-1.0); MONOCYTES % (AUTO) 2.3 % (2.0-9.0); NEUTROPHILS # (AUTO) 8.2 K/uL (1.8-7.7); PLATELET COUNT (AUTO) 335 K/uL (150-450); RED BLOOD CELL COUNT(AUTO) 3.24 MIL/uL (4.00-5.20); RED CELL DISTRIBUTION WIDTH 14.9 % (11.5-14.5); WHITE BLOOD COUNT (AUTO) 8.8 K/uL (4.5-11.0)
[2016-09-20 05:19] LABS: NEUTROPHILS % (AUTO) 93.2 % (40.0-70.0)
[2016-09-20 05:30] LABS: CALCIUM, TOTAL 8.6 mg/dL (8.8-10.5); CREATININE 4.01 mg/dL (0.60-1.30); PHOSPHORUS 5.5 mg/dL (2.5-4.9); POTASSIUM 5.2 mmol/L (3.5-5.1)
[2016-09-20 05:32] LABS: GLUCOSE COMMENT 1 Received Meds; GLUCOSE,POINT OF CARE 289 MG/DL (70-110)
[2016-09-20] MEDS: INSULIN ASPART 100 UNITS/ML SQ PRN ×4 (05:47→21:12)
[2016-09-20] MEDS ORDERED: SODIUM POLYSTYRENE SULFONATE 15 GM/60 ML SUSPENSION BOTTLE PO ONE (08:00)
[2016-09-20 08:07] LABS: GLUCOSE COMMENT 1 Received Meds; GLUCOSE,POINT OF CARE 235 MG/DL (70-110)
[2016-09-20] MEDS: DOCUSATE SODIUM 100 MG CAPSULE PO SCH ×2 (09:00→21:05)
[2016-09-20] MEDS: TICAGRELOR 90 MG TABLET PO SCH ×2 (09:16→21:05)
[2016-09-20] MEDS: EPOETIN ALFA 10,000 UNITS/ML VIAL SQ SCH (09:16)
[2016-09-20] MEDS: AMITRIPTYLINE HCL 25 MG TABLET PO SCH (09:17)
[2016-09-20] MEDS: ENALAPRIL MALEATE 5 MG TABLET PO SCH ×2 (09:17→21:00)
[2016-09-20] MEDS: OxyCODONE HCL/ACETAMINOPHEN 5-325 MG TABLET PO PRN ×2 (09:17→23:17)
[2016-09-20] MEDS: PANTOPRAZOLE SODIUM 40 MG/VIAL IVP SCH (09:18)
[2016-09-20] MEDS: ASPIRIN 81 MG CHEWABLE TABLET PO SCH (09:18)
[2016-09-20] MEDS: FUROSEMIDE 40 MG/4 ML VIAL IVP SCH (09:18)
[2016-09-20 20:33] LABS: GLUCOSE COMMENT 1 Received Meds; GLUCOSE,POINT OF CARE 341 MG/DL (70-110)
[2016-09-20] MEDS: SIMVASTATIN 5 MG TABLET PO SCH (21:05)
[2016-09-21] VITALS (7 sets, daily range): BP systolic 98–182; BP diastolic 54–106
[2016-09-21] MEDS: IPRATROPIUM BROMIDE 0.5 MG/2.5 ML NEB SOLUTION NEB SCH ×4 (02:30→19:18)
[2016-09-21] MEDS: ALBUTEROL SULFATE 2.5 MG/0.5 ML NEB SOLUTION NEB SCH ×4 (02:30→19:18)
[2016-09-21 06:21] LABS: CALCIUM, TOTAL 9.1 mg/dL (8.8-10.5); CREATININE 6.11 mg/dL (0.60-1.30)
[2016-09-21] MEDS: INSULIN ASPART 100 UNITS/ML SQ PRN ×4 (06:40→22:03)
[2016-09-21 07:24] LABS: POTASSIUM 6.2 mmol/L (3.5-5.1)
[2016-09-21] MEDS ORDERED: INSULIN DETEMIR 100 UNITS/ML SQ ONE (08:30)
[2016-09-21] MEDS ORDERED: INSLAN SQ (08:44)
[2016-09-21] MEDS: FUROSEMIDE 40 MG/4 ML VIAL IVP SCH (09:00)
[2016-09-21] MEDS ORDERED: DiphenhydrAMINE HCL 50 MG/ML VIAL IVP PRN (09:15)
[2016-09-21] MEDS ORDERED: LIDOCAINE HCL/PF 1% 2 ML VIAL ID PRN (09:15)
[2016-09-21] MEDS ORDERED: MANNITOL 25%-12.5 GM/50 ML VIAL IVP PRN (09:15)
[2016-09-21] MEDS ORDERED: ALBUMIN HUMAN 25%-12.5GM/50ML IV BOTTLE IV PRN (09:15)
[2016-09-21] MEDS: ASPIRIN 81 MG CHEWABLE TABLET PO SCH (12:30)
[2016-09-21] MEDS: DOCUSATE SODIUM 100 MG CAPSULE PO SCH ×2 (12:30→22:01)
[2016-09-21] MEDS: MethylPREDNISolone SOD SUCC 125 MG/2 ML VIAL IVP SCH ×2 (12:30→16:24)
[2016-09-21] MEDS: PANTOPRAZOLE SODIUM 40 MG/VIAL IVP SCH (12:30)
[2016-09-21] MEDS: TICAGRELOR 90 MG TABLET PO SCH ×2 (12:30→22:02)
[2016-09-21] MEDS: AMITRIPTYLINE HCL 25 MG TABLET PO SCH (12:31)
[2016-09-21] MEDS: ENALAPRIL MALEATE 5 MG TABLET PO SCH ×3 (12:32→22:01)
[2016-09-21 13:02] LABS: GLUCOSE COMMENT 1 Received Meds; GLUCOSE,POINT OF CARE 364 MG/DL (70-110)
[2016-09-21 13:07] LABS: GLUCOSE,POINT OF CARE 222 MG/DL (70-110)
[2016-09-21] MEDS: GuaiFENesin/D-METHORPHAN [SUGAR-FREE] 200-20MG/10 ML SYRUP UDCUP PO PRN (13:58)
[2016-09-21] MEDS ORDERED: INSULIN DETEMIR 100 UNITS/ML SQ SCH (21:00)
[2016-09-21] MEDS: OxyCODONE HCL/ACETAMINOPHEN 5-325 MG TABLET PO PRN (22:00)
[2016-09-21] MEDS: SIMVASTATIN 5 MG TABLET PO SCH (22:01)
[2016-09-22] MEDS: MethylPREDNISolone SOD SUCC 125 MG/2 ML VIAL IVP SCH ×3 (00:19→16:40)
[2016-09-22] MEDS: IPRATROPIUM BROMIDE 0.5 MG/2.5 ML NEB SOLUTION NEB SCH ×4 (02:07→19:34)
[2016-09-22] MEDS: ALBUTEROL SULFATE 2.5 MG/0.5 ML NEB SOLUTION NEB SCH ×4 (02:07→19:34)
[2016-09-22] MEDS ORDERED: SODIUM CHLORIDE 0.9% 250 ML IV ONE (02:24)
[2016-09-22] MEDS: LEVOFLOXACIN 500 MG/D5% WATER 100 ML IV SCH (02:31)
[2016-09-22] MEDS: GuaiFENesin/D-METHORPHAN [SUGAR-FREE] 200-20MG/10 ML SYRUP UDCUP PO PRN (03:01)
[2016-09-22 04:05] VITALS: BP 137/63
[2016-09-22] MEDS: INSULIN ASPART 100 UNITS/ML SQ PRN ×3 (06:09→17:21)
[2016-09-22 07:43] VITALS: BP 140/72
[2016-09-22] MEDS: TICAGRELOR 90 MG TABLET PO SCH ×2 (08:50→20:15)
[2016-09-22] MEDS: DOCUSATE SODIUM 100 MG CAPSULE PO SCH ×2 (08:51→20:17)
[2016-09-22] MEDS: ASPIRIN 81 MG CHEWABLE TABLET PO SCH (08:52)
[2016-09-22] MEDS: AMITRIPTYLINE HCL 25 MG TABLET PO SCH (08:52)
[2016-09-22] MEDS: FUROSEMIDE 40 MG/4 ML VIAL IVP SCH (08:53)
[2016-09-22] MEDS: PANTOPRAZOLE SODIUM 40 MG/VIAL IVP SCH (08:56)
[2016-09-22] MEDS: ENALAPRIL MALEATE 5 MG TABLET PO SCH (09:00)
[2016-09-22] MEDS: EPOETIN ALFA 10,000 UNITS/ML VIAL SQ SCH (09:00)
[2016-09-22 10:12] LABS: CREATININE 5.31 mg/dL (0.60-1.30); POTASSIUM 5.1 mmol/L (3.5-5.1)
[2016-09-22 10:56] VITALS: BP 124/106
[2016-09-22 11:32] LABS: GLUCOSE COMMENT 1 Received Meds; GLUCOSE,POINT OF CARE 348 MG/DL (70-110)
[2016-09-22 15:15] VITALS: BP 108/61
[2016-09-22 15:52] LABS: GLUCOSE,POINT OF CARE 309 MG/DL (70-110)
[2016-09-22 19:34] VITALS: BP 124/78
[2016-09-22] MEDS: SIMVASTATIN 5 MG TABLET PO SCH (20:20)
[2016-09-22] MEDS ORDERED: PredniSONE 20 MG TABLET PO ONE (20:30)
[2016-09-22] MEDS ORDERED: INSULIN ASPART 100 UNITS/ML SQ ONE (20:45)
[2016-09-22] MEDS ORDERED: LEVO750T21 PO (21:12)
[2016-09-22] MEDS ORDERED: PRED1TAB PO ×6 (21:14→21:20)
[2016-09-22] MEDS ORDERED: SIMV5TAB2 PO (21:22)
[2016-09-22] MEDS ORDERED: COMBISP IH (21:23)
[2016-09-22] MEDS ORDERED: ADV250 IH (21:24)
[2016-09-22] MEDS ORDERED: VALS40TA4 PO (21:25)
[2016-09-23] MEDS ORDERED: VALSARTAN 40 MG TABLET PO SCH (09:00)
[2016-09-24 01:31] LABS: GLUCOSE COMMENT 1 Received Meds; GLUCOSE,POINT OF CARE 355 MG/DL (70-110)
== END 2016-09-22 21:50 | disposition home or self-care (01) | DRG 280 ==
LOC: EMS 22:39 → 5N 09-18 01:00 → ICU 09-18 12:27 → 5S 09-20 15:15
PROVIDERS: ADMIT Internal Medicine; ATTEND Internal Medicine
PROC: 5A1D60Z (ICD-10-PCS; principal; 2016-09-18)
PROC: 4A023N7 Measurement of Cardiac Sampling and Pressure, Left Heart, Percutaneous Approach (ICD-10-PCS; 2016-09-19)
PROC: B2151ZZ Fluoroscopy of Left Heart using Low Osmolar Contrast (ICD-10-PCS; 2016-09-19)
PROC: B2111ZZ Fluoroscopy of Multiple Coronary Arteries using Low Osmolar Contrast (ICD-10-PCS; 2016-09-19)
PROC: B41F1ZZ Fluoroscopy of Right Lower Extremity Arteries using Low Osmolar Contrast (ICD-10-PCS; 2016-09-19)
DX: I21.4 Non-ST elevation (NSTEMI) myocardial infarction (principal); N18.6 End stage renal disease; I50.33 Acute on chronic diastolic (congestive) heart failure; I13.2 Hypertensive heart and chronic kidney disease with heart failure and with stage 5 chronic kidney disease, or end stage renal disease; J44.9 Chronic obstructive pulmonary disease, unspecified; I25.10 Atherosclerotic heart disease of native coronary artery without angina pectoris; E11.22 Type 2 diabetes mellitus with diabetic chronic kidney disease; E78.5 Hyperlipidemia, unspecified; D63.8 Anemia in other chronic diseases classified elsewhere; E87.5 Hyperkalemia; F17.210 Nicotine dependence, cigarettes, uncomplicated; Z99.2 Dependence on renal dialysis; Z88.0 Allergy status to penicillin; Z79.4 Long term (current) use of insulin; Z79.899 Other long term (current) drug therapy; Z79.891 Long term (current) use of opiate analgesic; Z90.49 Acquired absence of other specified parts of digestive tract; Z90.710 Acquired absence of both cervix and uterus; Z98.890 Other specified postprocedural states
CPT/HCPCS: 51702; 75635; 82962; 83540; 83550; 83735; 84100; 84132; 87081; 90935; 93005; 93306; 94640; 96374; 96375; 99285; C9113; J0360; J0885; J1644; J1815; J1940; J1956; J2250; J2270; J2930; J3010; J3490; J7030; J7040; J7050; Q9967

== ENCOUNTER 2016-09-29 21:55 | Inpatient (IN) | payer MEDICARE, MEDICAID ==
[~2016-09-29] VITALS: Ht 165.1 cm; Wt 102.9 kg
[~2016-09-29 21:55] MED LIST changes: +ADV250 IH; +COMBISP IH; +LEVO750T21 PO; +PRED1TAB PO; +SIMV5TAB2 PO; +VALS40TA4 PO
[2016-09-29 22:07] LABS: GLUCOSE,POINT OF CARE 392 MG/DL (70-110)
[2016-09-29 23:10] LABS: BASOPHILS % (AUTO) 0.3 % (0.0-2.0); EOSINOPHILS % (AUTO) 1.4 % (1.0-6.0); HEMATOCRIT 30.6 % (36-46); HEMOGLOBIN 9.8 g/dL (12.0-16.0); LYMPHOCYTES # (AUTO) 1.7 K/uL (1.0-4.8); LYMPHOCYTES % (AUTO) 12.5 % (22.0-44.0); MEAN CORPUSCULAR HEMOGLOBIN 27.8 pg (26.0-34.0); MEAN CORPUSCULAR VOLUME 87 fL (80-100); MONOCYTES # (AUTO) 1.4 K/uL (0.1-1.0); MONOCYTES % (AUTO) 10.4 % (2.0-9.0); NEUTROPHILS % (AUTO) 75.4 % (40.0-70.0); PLATELET COUNT (AUTO) 345 K/uL (150-450); RED BLOOD CELL COUNT(AUTO) 3.52 MIL/uL (4.00-5.20); RED CELL DISTRIBUTION WIDTH 15.6 % (11.5-14.5); WHITE BLOOD COUNT (AUTO) 13.3 K/uL (4.5-11.0)
[2016-09-29 23:21] LABS: CALCIUM, TOTAL 8.4 mg/dL (8.8-10.5); CREATININE 6.14 mg/dL (0.60-1.30)
[2016-09-29 23:29] LABS: LACTIC ACID 1.9 mmol/L (0.4-2.0)
[2016-09-29] MEDS ORDERED: ONDANSETRON HCL 4 MG/2 ML VIAL IVP PRN (23:30)
[2016-09-29] MEDS ORDERED: ASPIRIN 325 MG TABLET PO ONE (23:30)
[2016-09-29] MEDS ORDERED: NITROGLYCERIN 2% (1 GM=INCH) PACKET TP ONE (23:30)
[2016-09-29] MEDS ORDERED: NITROGLYCERIN 0.4 MG SUBLINGUAL TABLET #25 SL ONE (23:30)
[2016-09-29] MEDS ORDERED: 0.9% SODIUM CHLORIDE 10 ML SYRINGE IVP PRN (23:30)
[2016-09-29] MEDS ORDERED: ACETAMINOPHEN 325 MG TABLET PO PRN (23:30)
[2016-09-29 23:36] LABS: ALBUMIN 2.8 g/dL (3.4-5.0); BILIRUBIN,TOTAL 0.3 mg/dL (0.1-1.0); TOTAL PROTEIN, SERUM 6.9 g/dL (6.4-8.2)
[2016-09-30 01:46] VITALS: BP 193/96
[2016-09-30] MEDS ORDERED: TraMADol HCL 50 MG TABLET PO PRN ×2 (02:15)
[2016-09-30] MEDS ORDERED: HYDROCODONE/ACETAMINOPHEN 5-325 MG TABLET PO PRN (02:15)
[2016-09-30] MEDS ORDERED: PREGABALIN 75 MG CAPSULE PO SCH (02:15)
[2016-09-30] MEDS ORDERED: DEXTROSE 50%-WATER 25 GM/50 ML SYRINGE IVP PRN (02:30)
[2016-09-30] MEDS ORDERED: ACETAMINOPHEN 325 MG TABLET PO PRN (02:30)
[2016-09-30] MEDS ORDERED: MORPHINE SULFATE 2 MG/ML SYRINGE IVP PRN (02:30)
[2016-09-30] MEDS ORDERED: NITROGLYCERIN 2% (1 GM=INCH) PACKET TP PRN (02:30)
[2016-09-30] MEDS ORDERED: NITROGLYCERIN 0.4 MG SUBLINGUAL TABLET #25 SL PRN (02:30)
[2016-09-30] MEDS: INSULIN ASPART 100 UNITS/ML SQ PRN ×5 (02:52→21:13)
[2016-09-30 05:35] VITALS: BP 108/64
[2016-09-30 08:14] VITALS: BP 164/93
[2016-09-30] MEDS ORDERED: AMITRIPTYLINE HCL 25 MG TABLET PO SCH (09:00)
[2016-09-30] MEDS ORDERED: SODIUM CHLORIDE 0.9% 2,000 ML IV ONE (09:31)
[2016-09-30] MEDS: HYDROCODONE/ACETAMINOPHEN 5-325 MG TABLET PO PRN (10:38)
[2016-09-30 11:56] VITALS: BP 144/107
[2016-09-30] MEDS: ALBUTEROL SULFATE/IPRATROPIUM 100-20 MCG/SPRAY 4 GM INHALER IH SCH ×4 (13:00→20:11)
[2016-09-30] MEDS: PredniSONE 5 MG TABLET PO SCH (14:27)
[2016-09-30] MEDS: VITAMIN B COMP/VIT C/FOLIC ACID CAPSULE PO SCH (14:27)
[2016-09-30] MEDS: PREGABALIN 75 MG CAPSULE PO SCH ×2 (14:27→20:13)
[2016-09-30] MEDS: ASPIRIN 81 MG CHEWABLE TABLET PO SCH (14:28)
[2016-09-30] MEDS: AMITRIPTYLINE HCL 25 MG TABLET PO SCH (14:28)
[2016-09-30 15:02] LABS: APPEARANCE,URINE CLEAR (CLEAR); GLUCOSE, URINE (UA) 250 mg/dL (NEGATIVE); KETONES,URINE NEGATIVE (NEGATIVE); LEUKOCYTE ESTERASE ,URINE NEGATIVE (NEGATIVE); OCCULT BLOOD,URINE NEGATIVE (NEGATIVE); PH,URINE 8.5 (5.0-8.0); PROTEIN,URINE SEE CONFIRM (NEGATIVE)
[2016-09-30 15:12] VITALS: BP 155/82
[2016-09-30] MEDS: VALSARTAN 40 MG TABLET PO SCH (15:25)
[2016-09-30 15:29] LABS: SULFOSALICYLIC ACID,URINE 2+ (Negative)
[2016-09-30 15:30] LABS: RBC,URINE None Seen /HPF (0-2); SQUAMOUS EPITHELIAL CELL,UR Few /LPF (None Seen); WBC,URINE 0-2 /HPF (0-5)
[2016-09-30] MEDS: OXYGEN THERAPY IH SCH ×2 (15:58→20:10)
[2016-09-30 19:12] VITALS: BP 160/53
[2016-09-30 20:02] LABS: GLUCOSE COMMENT 1 Received Meds; GLUCOSE,POINT OF CARE 192 MG/DL (70-110)
[2016-09-30 20:02] LABS: GLUCOSE COMMENT 1 Received Meds; GLUCOSE,POINT OF CARE 136 MG/DL (70-110)
[2016-09-30 20:02] LABS: GLUCOSE COMMENT 1 Doctor Notified; GLUCOSE,POINT OF CARE 279 MG/DL (70-110)
[2016-09-30 20:07] LABS: GLUCOSE COMMENT 1 Received Meds; GLUCOSE,POINT OF CARE 340 MG/DL (70-110)
[2016-09-30] MEDS: SIMVASTATIN 5 MG TABLET PO SCH (20:13)
[2016-09-30] MEDS: TAMSULOSIN HCL 0.4 MG CAPSULE PO SCH (20:13)
[2016-09-30] MEDS: TICAGRELOR 90 MG TABLET PO SCH (20:14)
[2016-09-30] MEDS ORDERED: TraZODone HCL 100 MG TABLET PO SCH (21:00)
[2016-09-30] MEDS ORDERED: INSULIN GLARGINE,HUM.REC.ANLOG 100 UNITS/ML SQ SCH (21:00)
[2016-09-30] MEDS ORDERED: SIMVASTATIN 5 MG TABLET PO SCH (21:00)
[2016-09-30] MEDS: INSULIN DETEMIR 100 UNITS/ML SQ SCH (21:12)
[2016-09-30] MEDS: TraZODone HCL 100 MG TABLET PO SCH (21:14)
[2016-10-01] VITALS (8 sets, daily range): BP systolic 105–197; BP diastolic 58–93
[2016-10-01 05:28] LABS: CALCIUM, TOTAL 8.5 mg/dL (8.8-10.5); CHOL/HDL RATIO 5.4 (3.9-5.7); CREATININE 5.05 mg/dL (0.60-1.30); POTASSIUM 5.5 mmol/L (3.5-5.1)
[2016-10-01] MEDS: INSULIN ASPART 100 UNITS/ML SQ PRN ×4 (05:57→20:29)
[2016-10-01 07:20] LABS: BASOPHILS # (AUTO) 0.02 K/uL (0.00-0.20); BASOPHILS % (AUTO) 0.1 % (0.0-2.0); EOSINOPHILS # (AUTO) 0.27 K/uL (0.00-0.70); EOSINOPHILS % (AUTO) 2.21 % (1.0-6.0); HEMATOCRIT 29.5 % (36-46); HEMOGLOBIN 9.4 g/dL (12.0-16.0); LYMPHOCYTES # (AUTO) 1.7 K/uL (1.0-4.8); LYMPHOCYTES % (AUTO) 13.8 % (22.0-44.0); MEAN CORPUSCULAR HEMOGLOBIN 28.7 pg (26.0-34.0); MEAN CORPUSCULAR HGB CONC 32.1 G/dL (31.0-37.0); MEAN CORPUSCULAR VOLUME 89 fL (80-100); NEUTROPHILS # (AUTO) 9.3 K/uL (1.8-7.7); NEUTROPHILS % (AUTO) 75.9 % (40.0-70.0); PLATELET COUNT (AUTO) 292 K/uL (150-450); RED BLOOD CELL COUNT(AUTO) 3.29 MIL/uL (4.00-5.20); RED CELL DISTRIBUTION WIDTH 15.5 % (11.5-14.5); WHITE BLOOD COUNT (AUTO) 12.2 K/uL (4.5-11.0)
[2016-10-01] MEDS ORDERED: SODIUM POLYSTYRENE SULFONATE 15 GM/60 ML SUSPENSION BOTTLE PO ONE (07:30)
[2016-10-01] MEDS: ASPIRIN 81 MG CHEWABLE TABLET PO SCH (08:01)
[2016-10-01] MEDS: ALBUTEROL SULFATE/IPRATROPIUM 100-20 MCG/SPRAY 4 GM INHALER IH SCH ×4 (08:01→20:23)
[2016-10-01] MEDS: TICAGRELOR 90 MG TABLET PO SCH ×2 (08:02→20:24)
[2016-10-01] MEDS: VALSARTAN 40 MG TABLET PO SCH (08:03)
[2016-10-01] MEDS: PREGABALIN 75 MG CAPSULE PO SCH ×2 (08:03→20:24)
[2016-10-01] MEDS: VITAMIN B COMP/VIT C/FOLIC ACID CAPSULE PO SCH (08:03)
[2016-10-01] MEDS: PredniSONE 5 MG TABLET PO SCH (08:03)
[2016-10-01] MEDS: AMITRIPTYLINE HCL 25 MG TABLET PO SCH (08:03)
[2016-10-01] MEDS: OXYGEN THERAPY IH SCH ×2 (08:04→20:23)
[2016-10-01] MEDS: HYDROCODONE/ACETAMINOPHEN 5-325 MG TABLET PO PRN ×2 (08:11→12:52)
[2016-10-01] MEDS ORDERED: LABETALOL HCL 5 MG/ML 20 ML VIAL IVP PRN (12:45)
[2016-10-01] MEDS: AmLODIPine BESYLATE 5 MG TABLET PO SCH (12:52)
[2016-10-01 19:42] LABS: GLUCOSE COMMENT 1 Received Meds; GLUCOSE,POINT OF CARE 204 MG/DL (70-110)
[2016-10-01] MEDS: SIMVASTATIN 5 MG TABLET PO SCH (20:24)
[2016-10-01] MEDS: TAMSULOSIN HCL 0.4 MG CAPSULE PO SCH (20:24)
[2016-10-01] MEDS: TraZODone HCL 100 MG TABLET PO SCH (20:25)
[2016-10-01] MEDS: INSULIN DETEMIR 100 UNITS/ML SQ SCH (20:28)
[2016-10-01 22:02] LABS: GLUCOSE COMMENT 1 Received Meds; GLUCOSE,POINT OF CARE 291 MG/DL (70-110)
[2016-10-02 01:11] VITALS: BP 152/76
[2016-10-02 05:10] VITALS: BP 160/80
[2016-10-02] MEDS: INSULIN ASPART 100 UNITS/ML SQ PRN ×2 (06:02→12:16)
[2016-10-02 07:17] VITALS: BP 159/83
[2016-10-02] MEDS: OXYGEN THERAPY IH SCH (08:28)
[2016-10-02] MEDS: ALBUTEROL SULFATE/IPRATROPIUM 100-20 MCG/SPRAY 4 GM INHALER IH SCH ×2 (08:29→13:10)
[2016-10-02] MEDS: VITAMIN B COMP/VIT C/FOLIC ACID CAPSULE PO SCH (08:32)
[2016-10-02] MEDS: PREGABALIN 75 MG CAPSULE PO SCH (08:33)
[2016-10-02] MEDS: VALSARTAN 40 MG TABLET PO SCH (08:33)
[2016-10-02] MEDS: TICAGRELOR 90 MG TABLET PO SCH (08:33)
[2016-10-02] MEDS: ASPIRIN 81 MG CHEWABLE TABLET PO SCH (08:33)
[2016-10-02] MEDS: HYDROCODONE/ACETAMINOPHEN 5-325 MG TABLET PO PRN ×2 (08:34→13:11)
[2016-10-02] MEDS: AMITRIPTYLINE HCL 25 MG TABLET PO SCH (08:34)
[2016-10-02] MEDS: PredniSONE 5 MG TABLET PO SCH (08:34)
[2016-10-02] MEDS ORDERED: EPOETIN ALFA 10,000 UNITS/ML VIAL SQ SCH ×2 (09:00)
[2016-10-02 09:14] LABS: CALCIUM, TOTAL 8.3 mg/dL (8.8-10.5); CREATININE 6.22 mg/dL (0.60-1.30); MAGNESIUM 2.5 mg/dL (1.80-2.40); PHOSPHORUS 6.6 mg/dL (2.5-4.9); POTASSIUM 4.6 mmol/L (3.5-5.1)
[2016-10-02 11:45] VITALS: BP 188/83
[2016-10-02] MEDS: AmLODIPine BESYLATE 5 MG TABLET PO SCH (12:14)
[2016-10-02 13:46] VITALS: BP 138/69
[2016-10-02] MEDS ORDERED: AMLO-511 PO ×2 (15:14→15:22)
[2016-10-02] MEDS ORDERED: ASPI81TA2 PO (15:14)
[2016-10-02] MEDS ORDERED: TAMS0.4C32 PO (15:16)
[2016-10-02] MEDS ORDERED: NITR0.4T27 SL (15:20)
[2016-10-02] MEDS ORDERED: TICA90TA PO (15:25)
[2016-10-02] MEDS ORDERED: INSNOV SQ (15:26)
[2016-10-03] MEDS ORDERED: ASPIRIN 81 MG CHEWABLE TABLET PO SCH (09:00)
[2016-10-08 06:30] LABS: GLUCOSE COMMENT 1 Received Meds; GLUCOSE,POINT OF CARE 198 MG/DL (70-110)
== END 2016-10-02 16:00 | disposition home or self-care (01) | DRG 291 ==
LOC: EMS 21:57 → 5N 09-30 01:44
PROVIDERS: ADMIT Internal Medicine; ATTEND Internal Medicine
PROC: 5A1D60Z (ICD-10-PCS; principal; 2016-09-30)
DX: I50.33 Acute on chronic diastolic (congestive) heart failure (principal); N18.6 End stage renal disease; E43 Unspecified severe protein-calorie malnutrition; I13.2 Hypertensive heart and chronic kidney disease with heart failure and with stage 5 chronic kidney disease, or end stage renal disease; I25.10 Atherosclerotic heart disease of native coronary artery without angina pectoris; E11.22 Type 2 diabetes mellitus with diabetic chronic kidney disease; E78.5 Hyperlipidemia, unspecified; E87.5 Hyperkalemia; E78.00 Pure hypercholesterolemia, unspecified; E11.65 Type 2 diabetes mellitus with hyperglycemia; F17.210 Nicotine dependence, cigarettes, uncomplicated; D63.8 Anemia in other chronic diseases classified elsewhere; R33.9 Retention of urine, unspecified; J44.9 Chronic obstructive pulmonary disease, unspecified; Z79.899 Other long term (current) drug therapy; Z79.1 Long term (current) use of non-steroidal anti-inflammatories (NSAID); Z79.4 Long term (current) use of insulin; I25.2 Old myocardial infarction; Z99.2 Dependence on renal dialysis; Z90.710 Acquired absence of both cervix and uterus; Z88.0 Allergy status to penicillin; Z98.890 Other specified postprocedural states; Z71.6 Tobacco abuse counseling
CPT/HCPCS: 82962; 83540; 83550; 83605; 83735; 84100; 87081; 87340; 90935; 93005; 99291; J0885; J1815; J7030

== ENCOUNTER 2016-10-02 21:58 | Inpatient (IN) | payer MEDICARE, MEDICAID ==
[~2016-10-02] VITALS: Ht 165.1 cm; Wt 103.1 kg
[~2016-10-02 21:58] MED LIST changes: +AMLO-511 PO; +ASPI81TA2 PO; +NITR0.4T27 SL; +TAMS0.4C32 PO; +TICA90TA PO
[2016-10-02 22:27] LABS: GLUCOSE,POINT OF CARE 358 MG/DL (70-110)
[2016-10-02] MEDS ORDERED: ONDANSETRON HCL 4 MG/2 ML VIAL IVP ONE (22:30)
[2016-10-02] MEDS ORDERED: MORPHINE SULFATE 4 MG/ML SYRINGE IVP ONE (22:30)
[2016-10-02] MEDS ORDERED: NITROGLYCERIN 2% (1 GM=INCH) PACKET TP ONE (22:30)
[2016-10-02 22:47] LABS: HEMATOCRIT 33.1 % (36-46); HEMOGLOBIN 10.5 g/dL (12.0-16.0); MEAN CORPUSCULAR HEMOGLOBIN 27.6 pg (26.0-34.0); MEAN CORPUSCULAR HGB CONC 31.6 G/dL (31.0-37.0); MEAN CORPUSCULAR VOLUME 87 fL (80-100); PLATELET COUNT (AUTO) 303 K/uL (150-450); RED BLOOD CELL COUNT(AUTO) 3.79 MIL/uL (4.00-5.20); WHITE BLOOD COUNT (AUTO) 15.7 K/uL (4.5-11.0)
[2016-10-02 22:59] LABS: GLUCOSE, URINE (UA) 250 mg/dL (NEGATIVE); KETONES,URINE NEGATIVE (NEGATIVE); LEUKOCYTE ESTERASE ,URINE NEGATIVE (NEGATIVE); OCCULT BLOOD,URINE LARGE (NEGATIVE); PH,URINE 8.5 (5.0-8.0); PROTEIN,URINE SEE CONFIRM (NEGATIVE)
[2016-10-02 23:00] LABS: CALCIUM, TOTAL 8.6 mg/dL (8.8-10.5); CREATININE 6.96 mg/dL (0.60-1.30); POTASSIUM 5.1 mmol/L (3.5-5.1)
[2016-10-02 23:05] LABS: ALBUMIN 2.8 g/dL (3.4-5.0); BILIRUBIN,TOTAL 0.3 mg/dL (0.1-1.0); TOTAL PROTEIN, SERUM 7.2 g/dL (6.4-8.2)
[2016-10-02 23:12] LABS: APPEARANCE,URINE HAZY (CLEAR)
[2016-10-02 23:16] LABS: BAND NEUTROPHILS % (MANUAL) 3 % (1-5); LYMPHOCYTES % (MANUAL) 6 % (22-44); TOTAL CELLS COUNTED 100
[2016-10-02 23:17] LABS: SULFOSALICYLIC ACID,URINE 1+ (Negative)
[2016-10-02 23:18] LABS: SQUAMOUS EPITHELIAL CELL,UR Few /LPF (None Seen)
[2016-10-02] MEDS ORDERED: FUROSEMIDE 40 MG/4 ML VIAL IVP ONE (23:30)
[2016-10-03] MEDS ORDERED: 0.9% SODIUM CHLORIDE 10 ML SYRINGE IVP PRN (03:15)
[2016-10-03] MEDS ORDERED: ONDANSETRON HCL 4 MG/2 ML VIAL IVP PRN ×2 (03:15→03:30)
[2016-10-03] MEDS ORDERED: ACETAMINOPHEN 325 MG TABLET PO PRN (03:15)
[2016-10-03] MEDS ORDERED: ZOLPIDEM TARTRATE 5 MG TABLET PO PRN (03:30)
[2016-10-03] MEDS ORDERED: BISACODYL 10 MG RECTAL RECTAL SUPPOSITORY PR PRN (03:30)
[2016-10-03] MEDS ORDERED: MAGNESIUM HYDROXIDE SUSPENSION 30 ML UDCUP PO PRN (03:30)
[2016-10-03] MEDS ORDERED: MORPHINE SULFATE 4 MG/ML SYRINGE IVP PRN (03:30)
[2016-10-03] MEDS ORDERED: DEXTROSE 50%-WATER 25 GM/50 ML SYRINGE IVP PRN (03:30)
[2016-10-03 03:58] LABS: GLUCOSE COMMENT 1 Doctor Notified; GLUCOSE,POINT OF CARE 334 MG/DL (70-110)
[2016-10-03] MEDS ORDERED: INSULIN ASPART 100 UNITS/ML SQ ONE (04:00)
[2016-10-03] MEDS: NITROGLYCERIN 2% (1 GM=INCH) PACKET TP SCH ×3 (06:16→17:35)
[2016-10-03 06:44] LABS: GLUCOSE,POINT OF CARE 205 MG/DL (70-110)
[2016-10-03] MEDS: VALSARTAN 40 MG TABLET PO SCH (08:59)
[2016-10-03] MEDS: AmLODIPine BESYLATE 5 MG TABLET PO SCH (09:00)
[2016-10-03] MEDS: HEPARIN SODIUM,PORCINE 5,000 UNITS/ML VIAL SQ SCH ×2 (09:08→20:10)
[2016-10-03] MEDS: FUROSEMIDE 40 MG/4 ML VIAL IVP SCH (09:09)
[2016-10-03] MEDS: ASPIRIN 81 MG CHEWABLE TABLET PO SCH (09:09)
[2016-10-03] MEDS: AMITRIPTYLINE HCL 25 MG TABLET PO SCH (09:27)
[2016-10-03] MEDS: PREGABALIN 75 MG CAPSULE PO SCH ×2 (09:27→20:10)
[2016-10-03] MEDS: TICAGRELOR 90 MG TABLET PO SCH ×2 (09:27→20:10)
[2016-10-03 09:47] LABS: GLUCOSE,POINT OF CARE 306 MG/DL (70-110)
[2016-10-03 10:06] VITALS: BP 128/62
[2016-10-03 11:44] VITALS: BP 160/83
[2016-10-03] MEDS: INSULIN ASPART 100 UNITS/ML SQ PRN ×3 (12:24→20:11)
[2016-10-03] MEDS ORDERED: SODIUM CHLORIDE 0.9% 2,000 ML IV ONE (14:03)
[2016-10-03 15:38] VITALS: BP 155/64
[2016-10-03] MEDS: VITAMIN B COMP/VIT C/FOLIC ACID CAPSULE PO SCH (18:36)
[2016-10-03 19:39] VITALS: BP 190/93
[2016-10-03] MEDS: SIMVASTATIN 10 MG TABLET PO SCH (20:10)
[2016-10-03] MEDS: TraZODone HCL 100 MG TABLET PO SCH (20:10)
[2016-10-03] MEDS: INSULIN DETEMIR 100 UNITS/ML SQ SCH (20:12)
[2016-10-03] MEDS: OxyCODONE HCL/ACETAMINOPHEN 5-325 MG TABLET PO PRN (20:14)
[2016-10-03 23:18] VITALS: BP 188/84
[2016-10-04] VITALS (13 sets, daily range): BP systolic 100–186; BP diastolic 60–85
[2016-10-04] MEDS: OxyCODONE HCL/ACETAMINOPHEN 5-325 MG TABLET PO PRN (00:25)
[2016-10-04] MEDS: GuaiFENesin/D-METHORPHAN [SUGAR-FREE] 200-20MG/10 ML SYRUP UDCUP PO PRN ×2 (00:25→12:26)
[2016-10-04] MEDS: NITROGLYCERIN 2% (1 GM=INCH) PACKET TP SCH ×4 (00:25→18:02)
[2016-10-04] MEDS: IPRATROPIUM BROMIDE 0.5 MG/2.5 ML NEB SOLUTION NEB PRN ×2 (02:48→09:02)
[2016-10-04] MEDS: ALBUTEROL SULFATE 2.5 MG/0.5 ML NEB SOLUTION NEB PRN ×2 (02:48→09:02)
[2016-10-04] MEDS: AmLODIPine BESYLATE 5 MG TABLET PO SCH (06:10)
[2016-10-04 07:01] LABS: BASOPHILS # (AUTO) 0.03 K/uL (0.00-0.20); BASOPHILS % (AUTO) 0.3 % (0.0-2.0); EOSINOPHILS # (AUTO) 0.42 K/uL (0.00-0.70); EOSINOPHILS % (AUTO) 4.94 % (1.0-6.0); HEMATOCRIT 26.8 % (36-46); HEMOGLOBIN 8.6 g/dL (12.0-16.0); LYMPHOCYTES # (AUTO) 1.3 K/uL (1.0-4.8); LYMPHOCYTES % (AUTO) 15.6 % (22.0-44.0); MEAN CORPUSCULAR HEMOGLOBIN 28.4 pg (26.0-34.0); MEAN CORPUSCULAR VOLUME 89 fL (80-100); MONOCYTES # (AUTO) 0.9 K/uL (0.1-1.0); NEUTROPHILS # (AUTO) 5.7 K/uL (1.8-7.7); NEUTROPHILS % (AUTO) 68.2 % (40.0-70.0); PLATELET COUNT (AUTO) 231 K/uL (150-450); RED BLOOD CELL COUNT(AUTO) 3.01 MIL/uL (4.00-5.20); RED CELL DISTRIBUTION WIDTH 15.8 % (11.5-14.5); WHITE BLOOD COUNT (AUTO) 8.4 K/uL (4.5-11.0)
[2016-10-04 07:04] LABS: PROTHROMBIN TIME 10.5 SEC (9.4-11.6)
[2016-10-04 07:46] LABS: ALBUMIN 2.7 g/dL (3.4-5.0); BILIRUBIN,TOTAL 0.3 mg/dL (0.1-1.0); CALCIUM, TOTAL 8.8 mg/dL (8.8-10.5); CHOL/HDL RATIO 4.3 (3.9-5.7); CREATININE 5.73 mg/dL (0.60-1.30); MAGNESIUM 2.1 mg/dL (1.80-2.40); PHOSPHORUS 5.3 mg/dL (2.5-4.9); POTASSIUM 4.9 mmol/L (3.5-5.1); THYROID STIMULATING HORMONE 0.2 uIU/mL (0.36-3.74); TOTAL PROTEIN, SERUM 6.6 g/dL (6.4-8.2)
[2016-10-04] MEDS: HEPARIN SODIUM,PORCINE 5,000 UNITS/ML VIAL SQ SCH ×2 (09:00→20:45)
[2016-10-04] MEDS: VALSARTAN 40 MG TABLET PO SCH (09:11)
[2016-10-04] MEDS: EPOETIN ALFA 10,000 UNITS/ML VIAL SQ SCH (09:35)
[2016-10-04] MEDS: TICAGRELOR 90 MG TABLET PO SCH ×2 (10:26→20:45)
[2016-10-04] MEDS: AMITRIPTYLINE HCL 25 MG TABLET PO SCH (10:26)
[2016-10-04] MEDS: FUROSEMIDE 40 MG/4 ML VIAL IVP SCH (10:26)
[2016-10-04] MEDS: ASPIRIN 81 MG CHEWABLE TABLET PO SCH (10:26)
[2016-10-04] MEDS: PREGABALIN 75 MG CAPSULE PO SCH ×2 (10:27→20:45)
[2016-10-04] MEDS: VITAMIN B COMP/VIT C/FOLIC ACID CAPSULE PO SCH (10:27)
[2016-10-04] MEDS: HydrALAZINE HCL 20 MG/ML VIAL IVP PRN (12:26)
[2016-10-04] MEDS ORDERED: SODIUM CHLORIDE 0.9% 500 ML IV ONE (14:47)
[2016-10-04] MEDS ORDERED: LIDOCAINE 1% 30 ML/SOD BICARB 8.4% 4 ML SQ ONE (14:49)
[2016-10-04] MEDS ORDERED: HEPARIN SODIUM 1000 UNITS/NS 1,000 ML IARTER ONE (14:50)
[2016-10-04] MEDS ORDERED: IOHEXOL 300 MG/ML 50 ML VIAL IARTER ONE (15:18)
[2016-10-04] MEDS ORDERED: IOHEXOL 300 MG/ML 150 ML VIAL IARTER ONE (15:18)
[2016-10-04] MEDS ORDERED: LABETALOL HCL 5 MG/ML 20 ML VIAL IVP ONE ×2 (15:24→15:27)
[2016-10-04] MEDS ORDERED: HydrALAZINE HCL 20 MG/ML VIAL IVP ONE ×2 (15:27→15:34)
[2016-10-04] MEDS ORDERED: IOHEXOL 300 MG/ML 50 ML VIAL ONE (15:31)
[2016-10-04] MEDS ORDERED: HydrALAZINE HCL 20 MG/ML VIAL ONE (15:32)
[2016-10-04] MEDS ORDERED: DILTIAZEM HCL 5 MG/ML 5 ML VIAL IVP ONE ×2 (15:38→15:43)
[2016-10-04] MEDS: SIMVASTATIN 10 MG TABLET PO SCH (20:45)
[2016-10-04] MEDS: TraZODone HCL 100 MG TABLET PO SCH (20:46)
[2016-10-04] MEDS: INSULIN ASPART 100 UNITS/ML SQ PRN (20:48)
[2016-10-04] MEDS: INSULIN DETEMIR 100 UNITS/ML SQ SCH (20:50)
[2016-10-04] MEDS: ACETAMINOPHEN 325 MG TABLET PO PRN (21:07)
[2016-10-05] VITALS (10 sets, daily range): BP systolic 106–162; BP diastolic 66–90
[2016-10-05] MEDS: NITROGLYCERIN 2% (1 GM=INCH) PACKET TP SCH ×4 (00:41→17:42)
[2016-10-05] MEDS: AMITRIPTYLINE HCL 25 MG TABLET PO SCH ×2 (08:36→12:40)
[2016-10-05] MEDS: ACETAMINOPHEN 325 MG TABLET PO PRN (08:36)
[2016-10-05] MEDS ORDERED: SODIUM CHLORIDE 0.9% 2,000 ML IV ONE (08:38)
[2016-10-05] MEDS: FUROSEMIDE 40 MG/4 ML VIAL IVP SCH (08:44)
[2016-10-05] MEDS ORDERED: MANNITOL 25%-12.5 GM/50 ML VIAL IVP PRN (10:00)
[2016-10-05] MEDS ORDERED: ALBUMIN HUMAN 25%-12.5GM/50ML IV BOTTLE IV PRN (10:00)
[2016-10-05] MEDS: ASPIRIN 81 MG CHEWABLE TABLET PO SCH (12:39)
[2016-10-05] MEDS: AmLODIPine BESYLATE 10 MG TABLET PO SCH (12:39)
[2016-10-05] MEDS: PREGABALIN 75 MG CAPSULE PO SCH ×2 (12:39→19:59)
[2016-10-05] MEDS: TICAGRELOR 90 MG TABLET PO SCH ×2 (12:40→19:58)
[2016-10-05] MEDS: VITAMIN B COMP/VIT C/FOLIC ACID CAPSULE PO SCH (12:40)
[2016-10-05] MEDS: VALSARTAN 40 MG TABLET PO SCH (12:40)
[2016-10-05] MEDS: LORazepam 0.5 MG TABLET PO PRN (12:41)
[2016-10-05] MEDS: INSULIN ASPART 100 UNITS/ML SQ PRN ×3 (12:42→20:41)
[2016-10-05] MEDS: HEPARIN SODIUM,PORCINE 5,000 UNITS/ML VIAL SQ SCH ×2 (12:47→19:59)
[2016-10-05 13:27] LABS: BASOPHILS % (AUTO) 0.2 % (0.0-2.0); EOSINOPHILS % (AUTO) 4.6 % (1.0-6.0); HEMATOCRIT 31.5 % (36-46); LYMPHOCYTES # (AUTO) 1.3 K/uL (1.0-4.8); LYMPHOCYTES % (AUTO) 11.9 % (22.0-44.0); MEAN CORPUSCULAR HEMOGLOBIN 27.5 pg (26.0-34.0); MEAN CORPUSCULAR HGB CONC 31.6 G/dL (31.0-37.0); MEAN CORPUSCULAR VOLUME 87 fL (80-100); MONOCYTES # (AUTO) 0.8 K/uL (0.1-1.0); MONOCYTES % (AUTO) 6.9 % (2.0-9.0); NEUTROPHILS # (AUTO) 8.5 K/uL (1.8-7.7); NEUTROPHILS % (AUTO) 76.4 % (40.0-70.0); PLATELET COUNT (AUTO) 290 K/uL (150-450); RED BLOOD CELL COUNT(AUTO) 3.63 MIL/uL (4.00-5.20); RED CELL DISTRIBUTION WIDTH 15.5 % (11.5-14.5); WHITE BLOOD COUNT (AUTO) 11.2 K/uL (4.5-11.0)
[2016-10-05 13:43] LABS: CALCIUM, TOTAL 9.7 mg/dL (8.8-10.5); CREATININE 3.86 mg/dL (0.60-1.30); POTASSIUM 4.4 mmol/L (3.5-5.1)
[2016-10-05 13:49] LABS: BILIRUBIN,TOTAL 0.5 mg/dL (0.1-1.0); TOTAL PROTEIN, SERUM 7.7 g/dL (6.4-8.2)
[2016-10-05] MEDS: TraZODone HCL 100 MG TABLET PO SCH (19:58)
[2016-10-05] MEDS: SIMVASTATIN 10 MG TABLET PO SCH (19:58)
[2016-10-05] MEDS: CARVEDILOL 6.25 MG TABLET PO SCH (19:58)
[2016-10-05] MEDS: OxyCODONE HCL/ACETAMINOPHEN 5-325 MG TABLET PO PRN (19:59)
[2016-10-05] MEDS: GuaiFENesin/D-METHORPHAN [SUGAR-FREE] 200-20MG/10 ML SYRUP UDCUP PO PRN (20:32)
[2016-10-05] MEDS: INSULIN DETEMIR 100 UNITS/ML SQ SCH (20:42)
[2016-10-06] MEDS: NITROGLYCERIN 2% (1 GM=INCH) PACKET TP SCH ×4 (00:10→17:46)
[2016-10-06 04:46] VITALS: BP 135/58
[2016-10-06 07:12] LABS: BASOPHILS # (AUTO) 0.02 K/uL (0.00-0.20); BASOPHILS % (AUTO) 0.2 % (0.0-2.0); EOSINOPHILS # (AUTO) 0.65 K/uL (0.00-0.70); EOSINOPHILS % (AUTO) 5.63 % (1.0-6.0); HEMATOCRIT 29.2 % (36-46); HEMOGLOBIN 9.4 g/dL (12.0-16.0); LYMPHOCYTES # (AUTO) 2.1 K/uL (1.0-4.8); LYMPHOCYTES % (AUTO) 18.5 % (22.0-44.0); MEAN CORPUSCULAR HEMOGLOBIN 28.7 pg (26.0-34.0); MEAN CORPUSCULAR HGB CONC 32.2 G/dL (31.0-37.0); MEAN CORPUSCULAR VOLUME 89 fL (80-100); MONOCYTES % (AUTO) 8.4 % (2.0-9.0); NEUTROPHILS # (AUTO) 7.7 K/uL (1.8-7.7); NEUTROPHILS % (AUTO) 67.4 % (40.0-70.0); PLATELET COUNT (AUTO) 263 K/uL (150-450); RED BLOOD CELL COUNT(AUTO) 3.28 MIL/uL (4.00-5.20); RED CELL DISTRIBUTION WIDTH 16.1 % (11.5-14.5); WHITE BLOOD COUNT (AUTO) 11.5 K/uL (4.5-11.0)
[2016-10-06 07:31] VITALS: BP 136/63
[2016-10-06 07:36] LABS: ALBUMIN 2.9 g/dL (3.4-5.0); BILIRUBIN,TOTAL 0.4 mg/dL (0.1-1.0); CALCIUM, TOTAL 9.3 mg/dL (8.8-10.5); CREATININE 4.95 mg/dL (0.60-1.30); POTASSIUM 4.9 mmol/L (3.5-5.1); TOTAL PROTEIN, SERUM 7.1 g/dL (6.4-8.2)
[2016-10-06] MEDS: FUROSEMIDE 40 MG/4 ML VIAL IVP SCH (08:32)
[2016-10-06] MEDS: VALSARTAN 40 MG TABLET PO SCH (08:32)
[2016-10-06] MEDS: PREGABALIN 75 MG CAPSULE PO SCH ×2 (08:33→22:06)
[2016-10-06] MEDS: AmLODIPine BESYLATE 10 MG TABLET PO SCH (08:33)
[2016-10-06] MEDS: CARVEDILOL 6.25 MG TABLET PO SCH ×2 (08:33→22:06)
[2016-10-06] MEDS: AMITRIPTYLINE HCL 25 MG TABLET PO SCH (08:33)
[2016-10-06] MEDS: VITAMIN B COMP/VIT C/FOLIC ACID CAPSULE PO SCH (08:33)
[2016-10-06] MEDS: TICAGRELOR 90 MG TABLET PO SCH ×2 (08:33→22:06)
[2016-10-06] MEDS: ASPIRIN 81 MG CHEWABLE TABLET PO SCH (08:33)
[2016-10-06] MEDS: HEPARIN SODIUM,PORCINE 5,000 UNITS/ML VIAL SQ SCH ×2 (08:34→22:06)
[2016-10-06] MEDS: EPOETIN ALFA 10,000 UNITS/ML VIAL SQ SCH (08:34)
[2016-10-06] MEDS: GuaiFENesin/D-METHORPHAN [SUGAR-FREE] 200-20MG/10 ML SYRUP UDCUP PO PRN ×2 (09:37→17:43)
[2016-10-06 11:08] VITALS: BP 127/79
[2016-10-06] MEDS: INSULIN ASPART 100 UNITS/ML SQ PRN ×3 (12:15→22:09)
[2016-10-06 15:57] VITALS: BP 161/59
[2016-10-06] MEDS: LORazepam 0.5 MG TABLET PO PRN ×2 (17:43→22:06)
[2016-10-06 19:51] VITALS: BP 168/94
[2016-10-06] MEDS ORDERED: INSULIN DETEMIR 100 UNITS/ML SQ SCH (21:00)
[2016-10-06] MEDS: SIMVASTATIN 10 MG TABLET PO SCH (22:06)
[2016-10-06] MEDS: TraZODone HCL 100 MG TABLET PO SCH (22:06)
[2016-10-06 23:50] VITALS: BP 185/73
[2016-10-07] MEDS: NITROGLYCERIN 2% (1 GM=INCH) PACKET TP SCH ×3 (00:16→13:17)
[2016-10-07] MEDS: HydrALAZINE HCL 20 MG/ML VIAL IVP PRN (00:16)
[2016-10-07 05:01] VITALS: BP 150/64
[2016-10-07] MEDS: INSULIN ASPART 100 UNITS/ML SQ PRN ×2 (06:08→13:34)
[2016-10-07 07:04] LABS: BASOPHILS % (AUTO) 0.3 % (0.0-2.0); EOSINOPHILS % (AUTO) 6.2 % (1.0-6.0); HEMATOCRIT 28.3 % (36-46); HEMOGLOBIN 8.9 g/dL (12.0-16.0); LYMPHOCYTES # (AUTO) 1.3 K/uL (1.0-4.8); LYMPHOCYTES % (AUTO) 12.4 % (22.0-44.0); MEAN CORPUSCULAR HEMOGLOBIN 27.8 pg (26.0-34.0); MEAN CORPUSCULAR HGB CONC 31.6 G/dL (31.0-37.0); MEAN CORPUSCULAR VOLUME 88 fL (80-100); MONOCYTES # (AUTO) 0.6 K/uL (0.1-1.0); MONOCYTES % (AUTO) 5.8 % (2.0-9.0); NEUTROPHILS # (AUTO) 8.2 K/uL (1.8-7.7); NEUTROPHILS % (AUTO) 75.3 % (40.0-70.0); PLATELET COUNT (AUTO) 303 K/uL (150-450); RED BLOOD CELL COUNT(AUTO) 3.21 MIL/uL (4.00-5.20); RED CELL DISTRIBUTION WIDTH 15.5 % (11.5-14.5); WHITE BLOOD COUNT (AUTO) 10.9 K/uL (4.5-11.0)
[2016-10-07 07:17] LABS: ALBUMIN 2.8 g/dL (3.4-5.0); BILIRUBIN,TOTAL 0.4 mg/dL (0.1-1.0); CALCIUM, TOTAL 8.8 mg/dL (8.8-10.5); CREATININE 6.29 mg/dL (0.60-1.30); POTASSIUM 5.4 mmol/L (3.5-5.1); TOTAL PROTEIN, SERUM 6.8 g/dL (6.4-8.2)
[2016-10-07 07:32] VITALS: BP 153/75
[2016-10-07] MEDS ORDERED: SODIUM CHLORIDE 0.9% 2,000 ML IV ONE (08:11)
[2016-10-07] MEDS: HEPARIN SODIUM,PORCINE 5,000 UNITS/ML VIAL SQ SCH (09:00)
[2016-10-07] MEDS ORDERED: CARVEDILOL 12.5 MG TABLET PO SCH (09:00)
[2016-10-07 11:23] VITALS: BP 195/104
[2016-10-07] MEDS: AmLODIPine BESYLATE 10 MG TABLET PO SCH (13:16)
[2016-10-07] MEDS: ASPIRIN 81 MG CHEWABLE TABLET PO SCH (13:16)
[2016-10-07] MEDS: AMITRIPTYLINE HCL 25 MG TABLET PO SCH (13:17)
[2016-10-07] MEDS: PREGABALIN 75 MG CAPSULE PO SCH (13:17)
[2016-10-07] MEDS: VITAMIN B COMP/VIT C/FOLIC ACID CAPSULE PO SCH (13:17)
[2016-10-07] MEDS: FUROSEMIDE 40 MG/4 ML VIAL IVP SCH (13:18)
[2016-10-07] MEDS: TICAGRELOR 90 MG TABLET PO SCH (13:18)
[2016-10-07 18:19] LABS: GLUCOSE COMMENT 1 Received Meds; GLUCOSE,POINT OF CARE 250 MG/DL (70-110)
[2016-10-07 18:19] LABS: GLUCOSE,POINT OF CARE 68 MG/DL (70-110)
[2016-10-07 18:19] LABS: GLUCOSE COMMENT 1 Received Meds; GLUCOSE,POINT OF CARE 213 MG/DL (70-110)
[2016-10-07 18:19] LABS: GLUCOSE COMMENT 1 Received Meds; GLUCOSE,POINT OF CARE 208 MG/DL (70-110)
[2016-10-07 18:19] LABS: GLUCOSE COMMENT 1 Received Meds; GLUCOSE,POINT OF CARE 229 MG/DL (70-110)
[2016-10-07 18:19] LABS: GLUCOSE,POINT OF CARE 175 MG/DL (70-110)
[2016-10-07 18:19] LABS: GLUCOSE,POINT OF CARE 64 MG/DL (70-110)
[2016-10-07 18:19] LABS: GLUCOSE COMMENT 1 Received Meds; GLUCOSE,POINT OF CARE 155 MG/DL (70-110)
[2016-10-07 18:19] LABS: GLUCOSE COMMENT 1 Received Meds; GLUCOSE,POINT OF CARE 296 MG/DL (70-110)
[2016-10-07 18:19] LABS: GLUCOSE COMMENT 1 Juice/Food/D50 Given; GLUCOSE,POINT OF CARE 63 MG/DL (70-110)
[2016-10-07 18:19] LABS: GLUCOSE,POINT OF CARE 187 MG/DL (70-110)
[2016-10-07 18:19] LABS: GLUCOSE COMMENT 1 Received Meds; GLUCOSE,POINT OF CARE 218 MG/DL (70-110)
[2016-10-07 18:19] LABS: GLUCOSE,POINT OF CARE 157 MG/DL (70-110)
[2016-10-07 18:19] LABS: GLUCOSE,POINT OF CARE 111 MG/DL (70-110)
[2016-10-07 18:19] LABS: GLUCOSE COMMENT 1 Received Meds; GLUCOSE,POINT OF CARE 239 MG/DL (70-110)
[2016-10-07] MEDS ORDERED: HydrALAZINE HCL 50 MG TABLET PO SCH (21:00)
[2016-10-08 06:34] LABS: GLUCOSE COMMENT 1 Received Meds; GLUCOSE,POINT OF CARE 225 MG/DL (70-110)
[2016-10-08 06:34] LABS: GLUCOSE,POINT OF CARE 136 MG/DL (70-110)
[2016-10-08 06:34] LABS: GLUCOSE COMMENT 1 Received Meds; GLUCOSE,POINT OF CARE 201 MG/DL (70-110)
[2016-10-08 06:35] LABS: GLUCOSE COMMENT 1 Received Meds; GLUCOSE,POINT OF CARE 249 MG/DL (70-110)
[2016-10-08] MEDS ORDERED: VALSARTAN 80 MG TABLET PO SCH (09:00)
== END 2016-10-07 14:10 | disposition left against medical advice (07) | DRG 280 ==
LOC: EMS 22:00 → 5S 10-03 09:32
PROVIDERS: ADMIT Internal Medicine; ATTEND Internal Medicine
PROC: 4A023N7 Measurement of Cardiac Sampling and Pressure, Left Heart, Percutaneous Approach (ICD-10-PCS; principal; 2016-10-04)
PROC: B2111ZZ Fluoroscopy of Multiple Coronary Arteries using Low Osmolar Contrast (ICD-10-PCS; 2016-10-04)
PROC: B2151ZZ Fluoroscopy of Left Heart using Low Osmolar Contrast (ICD-10-PCS; 2016-10-04)
PROC: B41G1ZZ Fluoroscopy of Left Lower Extremity Arteries using Low Osmolar Contrast (ICD-10-PCS; 2016-10-04)
PROC: 5A1D60Z (ICD-10-PCS; 2016-10-05)
DX: I21.4 Non-ST elevation (NSTEMI) myocardial infarction (principal); I50.23 Acute on chronic systolic (congestive) heart failure; N18.6 End stage renal disease; I13.2 Hypertensive heart and chronic kidney disease with heart failure and with stage 5 chronic kidney disease, or end stage renal disease; E11.22 Type 2 diabetes mellitus with diabetic chronic kidney disease; E11.65 Type 2 diabetes mellitus with hyperglycemia; J44.9 Chronic obstructive pulmonary disease, unspecified; D63.1 Anemia in chronic kidney disease; F17.210 Nicotine dependence, cigarettes, uncomplicated; I25.10 Atherosclerotic heart disease of native coronary artery without angina pectoris; E87.5 Hyperkalemia; E78.5 Hyperlipidemia, unspecified; E66.01 Morbid (severe) obesity due to excess calories; Z68.37 Body mass index [BMI] 37.0-37.9, adult; I77.1 Stricture of artery; Z99.81 Dependence on supplemental oxygen; Z91.19 Patient's noncompliance with other medical treatment and regimen; Z99.2 Dependence on renal dialysis; Z88.0 Allergy status to penicillin; Z79.82 Long term (current) use of aspirin; Z71.6 Tobacco abuse counseling; Z79.4 Long term (current) use of insulin; Z79.899 Other long term (current) drug therapy; Z95.5 Presence of coronary angioplasty implant and graft; Z90.710 Acquired absence of both cervix and uterus; Z90.89 Acquired absence of other organs; Z86.19 Personal history of other infectious and parasitic diseases; Z53.29 Procedure and treatment not carried out because of patient's decision for other reasons; Z53.21 Procedure and treatment not carried out due to patient leaving prior to being seen by health care provider
CPT/HCPCS: 82306; 82962; 83036; 83735; 84100; 84443; 87081; 93005; 94640; 94660; 96372; 96374; 96375; 96376; 97116; 97162; 97530; 99285; J0360; J0885; J1644; J1815; J1940; J2270; J2405; J3490; J7030; Q9967

== ENCOUNTER 2016-10-20 15:05 | Emergency (ER) | payer MEDICARE, MEDICAID ==
[~2016-10-20] VITALS: Ht 165.1 cm; Wt 94.0 kg
[~2016-10-20 15:05] MED LIST changes: -LEVO750T21 PO; -PRED1TAB PO
[2016-10-20 15:14] VITALS: BP 119/56
[2016-10-20 15:22] LABS: GLUCOSE,POINT OF CARE 243 MG/DL (70-110)
== END 2016-10-20 16:36 | disposition left against medical advice (07) ==
LOC: EMS 15:07
DX: R11.2 Nausea with vomiting, unspecified (principal); E11.22 Type 2 diabetes mellitus with diabetic chronic kidney disease; N18.6 End stage renal disease; I13.2 Hypertensive heart and chronic kidney disease with heart failure and with stage 5 chronic kidney disease, or end stage renal disease; I50.9 Heart failure, unspecified; J44.9 Chronic obstructive pulmonary disease, unspecified; F17.210 Nicotine dependence, cigarettes, uncomplicated; Z99.2 Dependence on renal dialysis; Z53.21 Procedure and treatment not carried out due to patient leaving prior to being seen by health care provider
CPT/HCPCS: 82962

== ENCOUNTER 2016-11-08 16:20 | Emergency (ER) | payer MEDICARE, MEDICAID ==
[~2016-11-08] VITALS: Ht 167.6 cm; Wt 84.1 kg
[2016-11-08 16:32] LABS: GLUCOSE,POINT OF CARE 183 MG/DL (70-110)
[2016-11-08] MEDS ORDERED: MONT10TA21 PO (16:38)
[2016-11-08] MEDS ORDERED: GABA-529 PO (16:38)
[2016-11-08] MEDS ORDERED: ATOR40TA28 PO (16:38)
[2016-11-08] MEDS ORDERED: FAMO20 PO (16:38)
[2016-11-08] MEDS ORDERED: CARV25 PO (16:38)
[2016-11-08] MEDS ORDERED: NIFE10 PO (16:38)
[2016-11-08] MEDS ORDERED: SEVEC800 PO (16:38)
[2016-11-08] MEDS ORDERED: CLOP75 PO (16:38)
[2016-11-08] MEDS ORDERED: INSNOV SQ (16:38)
[2016-11-08 17:14] LABS: BASOPHILS # (AUTO) 0.01 K/uL (0.00-0.20); BASOPHILS % (AUTO) 0.1 % (0.0-2.0); EOSINOPHILS # (AUTO) 0.38 K/uL (0.00-0.70); HEMATOCRIT 30.4 % (36-46); HEMOGLOBIN 9.9 g/dL (12.0-16.0); LYMPHOCYTES # (AUTO) 1.2 K/uL (1.0-4.8); LYMPHOCYTES % (AUTO) 10.7 % (22.0-44.0); MEAN CORPUSCULAR HEMOGLOBIN 27.7 pg (26.0-34.0); MEAN CORPUSCULAR HGB CONC 32.5 G/dL (31.0-37.0); MEAN CORPUSCULAR VOLUME 85 fL (80-100); MONOCYTES % (AUTO) 8.2 % (2.0-9.0); NEUTROPHILS % (AUTO) 77.6 % (40.0-70.0); PLATELET COUNT (AUTO) 417 K/uL (150-450); RED BLOOD CELL COUNT(AUTO) 3.56 MIL/uL (4.00-5.20); RED CELL DISTRIBUTION WIDTH 16.1 % (11.5-14.5); WHITE BLOOD COUNT (AUTO) 11.6 K/uL (4.5-11.0)
[2016-11-08 17:25] LABS: ANION GAP 16 mmol/L (8-16); CALCIUM, TOTAL 9.5 mg/dL (8.8-10.5); CARBON DIOXIDE 22 mmol/L (22-29); CHLORIDE 93 mmol/L (98-107); CREATININE 7.76 mg/dL (0.60-1.30); GLOMERULAR FILTR. RATE CALC 6 mL/min (>60); POTASSIUM 5.7 mmol/L (3.5-5.1); SODIUM SERUM 131 mmol/L (136-145); UREA NITROGEN, BLOOD 57 mg/dL (7-18)
[2016-11-08 17:30] LABS: ALANINE AMINOTRANSFERASE 11 U/L (12-78); ALBUMIN 3.6 g/dL (3.4-5.0); ASPARTATE AMINOTRANSFERASE 8 U/L (15-37); BILIRUBIN,TOTAL 0.3 mg/dL (0.1-1.0); CREATINE KINASE, TOTAL 37 U/L (26-192); TOTAL PROTEIN, SERUM 7.9 g/dL (6.4-8.2)
[2016-11-08] MEDS ORDERED: SODIUM POLYSTYRENE SULFONATE 15 GM/60 ML SUSPENSION BOTTLE PR ONE (18:30)
[2016-11-08] MEDS ORDERED: SODIUM BICARBONATE [ADULT] 8.4% 50 MEQ/50 ML SYRINGE IVP ONE (18:30)
[2016-11-08] MEDS ORDERED: SODIUM POLYSTYRENE SULFONATE 15 GM/60 ML SUSPENSION BOTTLE PO ONE (18:45)
[2016-11-08] MEDS ORDERED: LEVALBUTEROL HCL 0.63 MG/3 ML NEB SOLUTION NEB ONE (20:00)
[2016-11-08 22:03] VITALS: BP 142/71
== END 2016-11-08 22:06 | disposition home or self-care (01) ==
LOC: EMS 16:22
DX: I13.2 Hypertensive heart and chronic kidney disease with heart failure and with stage 5 chronic kidney disease, or end stage renal disease (principal); E11.22 Type 2 diabetes mellitus with diabetic chronic kidney disease; N18.6 End stage renal disease; Z99.2 Dependence on renal dialysis; Z79.4 Long term (current) use of insulin; Z79.82 Long term (current) use of aspirin; I11.0 Hypertensive heart disease with heart failure; I50.9 Heart failure, unspecified; J44.9 Chronic obstructive pulmonary disease, unspecified; E87.5 Hyperkalemia; F17.210 Nicotine dependence, cigarettes, uncomplicated; Z88.0 Allergy status to penicillin; Z95.5 Presence of coronary angioplasty implant and graft; Z79.899 Other long term (current) drug therapy
CPT/HCPCS: 36415; 71010; 80053; 82550; 82962; 84132; 84484; 85025; 93005; 94640; 96374; 99285; J3490

== ENCOUNTER 2016-11-13 20:11 | Emergency (ER) | payer MEDICARE, MEDICAID ==
[~2016-11-13] VITALS: Ht 165.1 cm; Wt 91.0 kg
[~2016-11-13 20:11] MED LIST changes: -ADV250 IH; -AMLO-511 PO; +ATOR40TA28 PO; +CARV25 PO; -CLON.3 PO; +CLOP75 PO; -COMBISP IH; +FAMO20 PO; +GABA-529 PO; -HYDR-309 PO; +MONT10TA21 PO; +NIFE10 PO; -NITR0.4T27 SL; -PREG75 PO; +SEVEC800 PO; -SIMV5TAB2 PO; -TAMS0.4C32 PO; -TICA90TA PO; -TRAM50TA4 PO; -VALS40TA4 PO
[2016-11-13] MEDS ORDERED: PREG25 PO (20:18)
[2016-11-13 20:40] LABS: ANION GAP 12 mmol/L (8-16); CALCIUM, TOTAL 8.5 mg/dL (8.8-10.5); CARBON DIOXIDE 27 mmol/L (22-29); CHLORIDE 97 mmol/L (98-107); CREATININE 7.05 mg/dL (0.60-1.30); GLOMERULAR FILTR. RATE CALC 7 mL/min (>60); POTASSIUM 4.5 mmol/L (3.5-5.1); SODIUM SERUM 136 mmol/L (136-145); UREA NITROGEN, BLOOD 69 mg/dL (7-18)
[2016-11-13 20:43] LABS: BASOPHILS # (AUTO) 0.04 K/uL (0.00-0.20); BASOPHILS % (AUTO) 0.3 % (0.0-2.0); EOSINOPHILS # (AUTO) 0.55 K/uL (0.00-0.70); EOSINOPHILS % (AUTO) 4.16 % (1.0-6.0); HEMATOCRIT 28.2 % (36-46); HEMOGLOBIN 9.1 g/dL (12.0-16.0); LYMPHOCYTES # (AUTO) 1.8 K/uL (1.0-4.8); LYMPHOCYTES % (AUTO) 13.8 % (22.0-44.0); MEAN CORPUSCULAR HEMOGLOBIN 28.3 pg (26.0-34.0); MEAN CORPUSCULAR HGB CONC 32.2 G/dL (31.0-37.0); MEAN CORPUSCULAR VOLUME 88 fL (80-100); MONOCYTES % (AUTO) 7.7 % (2.0-9.0); NEUTROPHILS # (AUTO) 9.9 K/uL (1.8-7.7); NEUTROPHILS % (AUTO) 74.1 % (40.0-70.0); PLATELET COUNT (AUTO) 451 K/uL (150-450); PROTHROMBIN TIME 10.3 SEC (9.4-11.6); RED BLOOD CELL COUNT(AUTO) 3.21 MIL/uL (4.00-5.20); RED CELL DISTRIBUTION WIDTH 15.9 % (11.5-14.5); WHITE BLOOD COUNT (AUTO) 13.4 K/uL (4.5-11.0)
[2016-11-13 20:46] LABS: ALANINE AMINOTRANSFERASE 12 U/L (12-78); ALBUMIN 3.3 g/dL (3.4-5.0); ASPARTATE AMINOTRANSFERASE 8 U/L (15-37); BILIRUBIN,TOTAL 0.3 mg/dL (0.1-1.0); CREATINE KINASE, TOTAL 43 U/L (26-192)
[2016-11-13 21:03] LABS: B-TYPE NATRIURETIC PEPTIDE 1190 pg/mL (0-100)
[2016-11-13] MEDS ORDERED: ONDANSETRON HCL 4 MG/2 ML VIAL IVP ONE (21:30)
[2016-11-13] MEDS ORDERED: MORPHINE SULFATE 4 MG/ML SYRINGE IVP ONE (21:30)
[2016-11-13 21:43] LABS: APPEARANCE,URINE CLEAR (CLEAR); GLUCOSE, URINE (UA) 250 mg/dL (NEGATIVE); KETONES,URINE NEGATIVE (NEGATIVE); LEUKOCYTE ESTERASE ,URINE NEGATIVE (NEGATIVE); OCCULT BLOOD,URINE TRACE (NEGATIVE); PROTEIN,URINE SEE CONFIRM (NEGATIVE)
[2016-11-13 21:51] LABS: ADD UA MICROSCOPIC YES
[2016-11-13 21:52] LABS: SQUAMOUS EPITHELIAL CELL,UR Few /LPF (None Seen); SULFOSALICYLIC ACID,URINE 2+ (Negative)
[2016-11-13 22:19] VITALS: BP 162/75
== END 2016-11-13 22:56 | disposition home or self-care (01) ==
LOC: EMS 20:19
DX: R07.9 Chest pain, unspecified (principal); I13.2 Hypertensive heart and chronic kidney disease with heart failure and with stage 5 chronic kidney disease, or end stage renal disease; E11.22 Type 2 diabetes mellitus with diabetic chronic kidney disease; N18.6 End stage renal disease; J44.9 Chronic obstructive pulmonary disease, unspecified; F17.210 Nicotine dependence, cigarettes, uncomplicated; Z99.2 Dependence on renal dialysis; Z79.4 Long term (current) use of insulin; Z88.0 Allergy status to penicillin
CPT/HCPCS: 36415; 51702; 71010; 80053; 81001; 82550; 83880; 84484; 85025; 85610; 85730; 93005; 96374; 96375; 99285; J2270; J2405

== ENCOUNTER 2016-11-15 22:00 | Emergency (ER) | payer MEDICARE, MEDICAID ==
[~2016-11-15] VITALS: Ht 165.1 cm; Wt 96.0 kg
[~2016-11-15 22:00] MED LIST changes: +PREG25 PO
[2016-11-15] MEDS ORDERED: ACETAMINOPHEN 325 MG TABLET PO ONE (22:30)
[2016-11-15 22:55] LABS: BASOPHILS # (AUTO) 0.05 K/uL (0.00-0.20); BASOPHILS % (AUTO) 0.4 % (0.0-2.0); EOSINOPHILS # (AUTO) 0.55 K/uL (0.00-0.70); EOSINOPHILS % (AUTO) 4.85 % (1.0-6.0); HEMOGLOBIN 8.8 g/dL (12.0-16.0); LYMPHOCYTES # (AUTO) 1.6 K/uL (1.0-4.8); LYMPHOCYTES % (AUTO) 13.9 % (22.0-44.0); MEAN CORPUSCULAR HEMOGLOBIN 27.5 pg (26.0-34.0); MEAN CORPUSCULAR HGB CONC 31.4 G/dL (31.0-37.0); MEAN CORPUSCULAR VOLUME 88 fL (80-100); MONOCYTES % (AUTO) 8.9 % (2.0-9.0); NEUTROPHILS # (AUTO) 8.1 K/uL (1.8-7.7); PLATELET COUNT (AUTO) 454 K/uL (150-450); RED CELL DISTRIBUTION WIDTH 16.5 % (11.5-14.5); WHITE BLOOD COUNT (AUTO) 11.3 K/uL (4.5-11.0)
[2016-11-15] MEDS ORDERED: MORPHINE SULFATE 4 MG/ML SYRINGE IVP ONE (23:00)
[2016-11-15 23:01] LABS: PROTHROMBIN TIME 10.5 SEC (9.4-11.6)
[2016-11-15 23:03] LABS: ANION GAP 14 mmol/L (8-16); CALCIUM, TOTAL 8.9 mg/dL (8.8-10.5); CARBON DIOXIDE 27 mmol/L (22-29); CHLORIDE 96 mmol/L (98-107); CREATININE 7.42 mg/dL (0.60-1.30); GLOMERULAR FILTR. RATE CALC 7 mL/min (>60); POTASSIUM 4.3 mmol/L (3.5-5.1); SODIUM SERUM 137 mmol/L (136-145); UREA NITROGEN, BLOOD 65 mg/dL (7-18)
[2016-11-15 23:08] LABS: ALANINE AMINOTRANSFERASE 11 U/L (12-78); ALBUMIN 3.2 g/dL (3.4-5.0); ASPARTATE AMINOTRANSFERASE 6 U/L (15-37); BILIRUBIN,TOTAL 0.2 mg/dL (0.1-1.0); CREATINE KINASE, TOTAL 39 U/L (26-192); TOTAL PROTEIN, SERUM 7.2 g/dL (6.4-8.2)
[2016-11-15 23:22] LABS: B-TYPE NATRIURETIC PEPTIDE 823 pg/mL (0-100)
[2016-11-16 02:07] VITALS: BP 128/72
== END 2016-11-16 02:09 | disposition home or self-care (01) ==
LOC: EMS 22:02
DX: R07.89 Other chest pain (principal); E11.29 Type 2 diabetes mellitus with other diabetic kidney complication; N28.9 Disorder of kidney and ureter, unspecified; I11.0 Hypertensive heart disease with heart failure; I50.9 Heart failure, unspecified; F17.210 Nicotine dependence, cigarettes, uncomplicated; Z79.4 Long term (current) use of insulin; Z79.82 Long term (current) use of aspirin; Z88.0 Allergy status to penicillin
CPT/HCPCS: 36415; 71010; 80053; 82550; 83880; 84484; 85025; 85610; 93005; 96374; 99285; J2270

== ENCOUNTER 2017-04-08 13:28 | Emergency (ER) | payer MEDICARE, MEDICAID ==
[~2017-04-08] VITALS: Ht 165.1 cm; Wt 89.0 kg
[~2017-04-08 13:28] MED LIST changes: -ASPI81TA2 PO; +ASPI81TA39 PO
[2017-04-08 13:48] LABS: GLUCOSE,POINT OF CARE 240 MG/DL (70-110)
[2017-04-08] MEDS ORDERED: NIFE90TA38 PO (13:57)
[2017-04-08] MEDS ORDERED: IPRATROPIUM BROMIDE 0.5 MG/2.5 ML NEB SOLUTION NEB ONE (14:00)
[2017-04-08] MEDS ORDERED: ALBUTEROL SULFATE 2.5 MG/0.5 ML NEB SOLUTION NEB ONE (14:00)
[2017-04-08] MEDS ORDERED: 0.9% SODIUM CHLORIDE 5 ML NEB SOLUTION NEB ONE (14:00)
[2017-04-08 14:18] LABS: BASOPHILS % (AUTO) 0.2 % (0.0-2.0); EOSINOPHILS % (AUTO) 1.3 % (1.0-6.0); HEMATOCRIT 24.6 % (36-46); HEMOGLOBIN 8.1 g/dL (12.0-16.0); LYMPHOCYTES # (AUTO) 0.9 K/uL (1.0-4.8); LYMPHOCYTES % (AUTO) 7.9 % (22.0-44.0); MEAN CORPUSCULAR HEMOGLOBIN 26.8 pg (26.0-34.0); MEAN CORPUSCULAR VOLUME 81 fL (80-100); MONOCYTES % (AUTO) 8.3 % (2.0-9.0); NEUTROPHILS # (AUTO) 9.8 K/uL (1.8-7.7); NEUTROPHILS % (AUTO) 82.3 % (40.0-70.0); PLATELET COUNT (AUTO) 350 K/uL (150-450); RED BLOOD CELL COUNT(AUTO) 3.03 MIL/uL (4.00-5.20); RED CELL DISTRIBUTION WIDTH 21.5 % (11.5-14.5)
[2017-04-08 14:22] LABS: ANION GAP 15 mmol/L (8-16); CALCIUM, TOTAL 8.9 mg/dL (8.8-10.5); CARBON DIOXIDE 23 mmol/L (22-29); CHLORIDE 100 mmol/L (98-107); CREATININE 5.48 mg/dL (0.60-1.30); GLOMERULAR FILTR. RATE CALC 10 mL/min (>60); GLUCOSE,RANDOM 224 mg/dL (70-110); SODIUM SERUM 138 mmol/L (136-145); UREA NITROGEN, BLOOD 60 mg/dL (7-18)
[2017-04-08 14:26] LABS: ALANINE AMINOTRANSFERASE 135 U/L (12-78); ALBUMIN 3.2 g/dL (3.4-5.0); ALKALINE PHOSPHATASE 171 U/L (46-116); ASPARTATE AMINOTRANSFERASE 59 U/L (15-37); BILIRUBIN,TOTAL 1.1 mg/dL (0.1-1.0); LIPASE 62 U/L (73-393); TOTAL PROTEIN, SERUM 6.7 g/dL (6.4-8.2)
[2017-04-08 14:39] LABS: B-TYPE NATRIURETIC PEPTIDE > 5000 pg/mL (0-100)
[2017-04-08] MEDS ORDERED: ASPIRIN 81 MG CHEWABLE TABLET PO ONE (14:45)
[2017-04-08 14:55] VITALS: BP 136/70
[2017-04-08 15:09] LABS: ABG A-A DIFF O2 101.1 mmHg (10-20.0); ABG BASE EXCESS 0.3 mmol/L (-2.0-3.0); ABG CARBOXYHEMOGLOBIN 3.6 % (0.0-1.5); ABG HCO3 24.9 mmol/L (22.0-26.0); ABG METHEMOGLOBIN 0.3 % (0.0-1.5); ABG OXYGEN CONTENT 11.4 mL/dL (15.0-23.0); ABG OXYGEN SATURATION 91.9 % (95.0-98.0); ABG OXYHEMOGLOBIN 88.3 % (94.0-100.0); ABG PCO2 33 mmHg (35-45); ABG PH 7.478 (7.35-7.450); ABG TOTAL HEMOGLOBIN 9.1 G/dL (12.0-18.0); PO2, ARTERIAL BG 59.7 mmHg (79.0-87.0); SOURCE, BLOOD GAS ARTERIAL; TEMPERATURE, FAHRENHEIT, BG 98.6 FAHREN (96.0-98.6)
[2017-04-08 15:10] LABS: O2 DEVICE,BLOOD GAS CANNULA (ROOM AIR); SITE, BLOOD GAS RT BRACHIAL
[2017-04-08 15:26] LABS: PLATELET MORPHOLOGY COMMENT LARGE PLTS PRESENT
== END 2017-04-08 16:59 | disposition left against medical advice (07) ==
LOC: EMS 13:30
DX: I13.2 Hypertensive heart and chronic kidney disease with heart failure and with stage 5 chronic kidney disease, or end stage renal disease (principal); E11.22 Type 2 diabetes mellitus with diabetic chronic kidney disease; N18.6 End stage renal disease; I50.23 Acute on chronic systolic (congestive) heart failure; K92.2 Gastrointestinal hemorrhage, unspecified; I25.9 Chronic ischemic heart disease, unspecified; J44.9 Chronic obstructive pulmonary disease, unspecified; F17.210 Nicotine dependence, cigarettes, uncomplicated; Z88.0 Allergy status to penicillin; Z79.82 Long term (current) use of aspirin; Z99.2 Dependence on renal dialysis; Z79.4 Long term (current) use of insulin
CPT/HCPCS: 82805; 82962; 93005; 94640; 99285

== ENCOUNTER 2017-05-14 21:48 | Inpatient (IN) | payer MEDICARE, MEDICAID ==
[~2017-05-14] VITALS: Ht 162.6 cm; Wt 81.9 kg
[~2017-05-14 21:48] MED LIST changes: -NIFE10 PO; +NIFE90TA38 PO
[2017-05-14] MEDS ORDERED: ASPIRIN 81 MG CHEWABLE TABLET PO ONE (22:15)
[2017-05-14 22:39] LABS: EOSINOPHILS % (AUTO) 1.3 % (1.0-6.0); HEMOGLOBIN 9.1 g/dL (12.0-16.0); LYMPHOCYTES # (AUTO) 1.2 K/uL (1.0-4.8); LYMPHOCYTES % (AUTO) 4.4 % (22.0-44.0); MEAN CORPUSCULAR HEMOGLOBIN 27.2 pg (26.0-34.0); MEAN CORPUSCULAR HGB CONC 32.6 G/dL (31.0-37.0); MEAN CORPUSCULAR VOLUME 83 fL (80-100); MONOCYTES # (AUTO) 1.2 K/uL (0.1-1.0); MONOCYTES % (AUTO) 4.8 % (2.0-9.0); NEUTROPHILS # (AUTO) 23.3 K/uL (1.8-7.7); PLATELET COUNT (AUTO) 632 K/uL (150-450); RED BLOOD CELL COUNT(AUTO) 3.36 MIL/uL (4.00-5.20); RED CELL DISTRIBUTION WIDTH 21.5 % (11.5-14.5)
[2017-05-14 22:40] LABS: NEUTROPHILS % (AUTO) 89.5 % (40.0-70.0)
[2017-05-14 22:51] LABS: CALCIUM, TOTAL 8.1 mg/dL (8.8-10.5); CREATININE 6.6 mg/dL (0.60-1.30); POTASSIUM 4.8 mmol/L (3.5-5.1)
[2017-05-14] MEDS ORDERED: SODIUM CHLORIDE 0.9% 1,000 ML IV STA (22:51)
[2017-05-14 22:59] LABS: ALBUMIN 2.3 g/dL (3.4-5.0); BILIRUBIN,TOTAL 0.4 mg/dL (0.1-1.0); TOTAL PROTEIN, SERUM 6.9 g/dL (6.4-8.2)
[2017-05-14] MEDS ORDERED: VANCOMYCIN HCL 1 GM/D5% WATER 200 ML IV ONE (23:00)
[2017-05-14] MEDS ORDERED: LEVOFLOXACIN 750 MG/D5% WATER 150 ML IV ONE (23:00)
[2017-05-14] MEDS ORDERED: SODIUM CHLORIDE 0.9% 1,000 ML IV ONE ×3 (23:00→23:30)
[2017-05-14 23:04] LABS: RBC MORPHOLOGY COMMENT ABNORMAL RBC MORPH
[2017-05-14 23:14] LABS: PROTHROMBIN TIME 10.7 SEC (9.4-11.6)
[2017-05-14] MEDS ORDERED: ACETAMINOPHEN 500 MG TABLET PO ONE (23:15)
[2017-05-14] MEDS ORDERED: IPRATROPIUM BROMIDE 0.5 MG/2.5 ML NEB SOLUTION NEB ONE (23:30)
[2017-05-14] MEDS ORDERED: ALBUTEROL SULFATE 5 MG/ML 20 ML NEB SOLN [BULK] NEB ONE (23:30)
[2017-05-14] MEDS ORDERED: 0.9% SODIUM CHLORIDE 5 ML NEB SOLUTION NEB ONE (23:30)
[2017-05-14 23:37] LABS: INFLUENZA TYPE B NEGATIVE FOR TYPE B (NEGATIVE)
[2017-05-14] MEDS ORDERED: MORPHINE SULFATE 4 MG/ML SYRINGE IVP ONE (23:45)
[2017-05-14] MEDS ORDERED: ONDANSETRON HCL 4 MG/2 ML VIAL IVP ONE (23:45)
[2017-05-14 23:46] LABS: B-TYPE NATRIURETIC PEPTIDE > 5000 pg/mL (0-100); PROCALCITONIN (PCT) 1.13 ng/mL (<0.50)
[2017-05-15] VITALS (7 sets, daily range): BP systolic 96–141; BP diastolic 30–95
[2017-05-15] MEDS ORDERED: ALBUTEROL SULFATE 2.5 MG/0.5 ML NEB SOLUTION NEB PRN (03:00)
[2017-05-15] MEDS ORDERED: DEXTROSE 50%-WATER 25 GM/50 ML SYRINGE IVP PRN (03:00)
[2017-05-15] MEDS ORDERED: OxyCODONE HCL/ACETAMINOPHEN 5-325 MG TABLET PO PRN (03:15)
[2017-05-15] MEDS ORDERED: 0.9% SODIUM CHLORIDE 10 ML SYRINGE IVP PRN (03:15)
[2017-05-15] MEDS ORDERED: MAGNESIUM HYDROXIDE SUSPENSION 30 ML UDCUP PO PRN (03:15)
[2017-05-15] MEDS ORDERED: LEVOFLOXACIN 250 MG/D5% WATER 50 ML IV SCH (03:15)
[2017-05-15] MEDS ORDERED: VANCOMYCIN HCL 1 GM/D5% WATER 200 ML IV PRN (03:45)
[2017-05-15] MEDS ORDERED: VANCOMYCIN HCL 500 MG in DEXTROSE 5%-WATER 100 ML IV ONE (04:00)
[2017-05-15 05:15] LABS: APPEARANCE,URINE CLOUDY (CLEAR); GLUCOSE, URINE (UA) 250 mg/dL (NEGATIVE); KETONES,URINE NEGATIVE (NEGATIVE); LEUKOCYTE ESTERASE ,URINE SMALL (NEGATIVE); OCCULT BLOOD,URINE MODERATE (NEGATIVE); PH,URINE 8.5 (5.0-8.0); PROTEIN,URINE SEE CONFIRM (NEGATIVE)
[2017-05-15 06:18] LABS: SQUAMOUS EPITHELIAL CELL,UR Few /LPF (None Seen); SULFOSALICYLIC ACID,URINE 2+ (Negative)
[2017-05-15 06:19] LABS: RENAL EPITHELIAL CELLS,URINE Few /LPF (None Seen)
[2017-05-15] MEDS: INSULIN ASPART 100 UNITS/ML SQ PRN ×2 (06:35→12:00)
[2017-05-15] MEDS: IPRATROPIUM BROMIDE 0.5 MG/2.5 ML NEB SOLUTION NEB SCH ×3 (08:00→19:49)
[2017-05-15] MEDS: ALBUTEROL SULFATE 2.5 MG/0.5 ML NEB SOLUTION NEB SCH ×3 (08:00→19:49)
[2017-05-15] MEDS: SEVELAMER CARBONATE 800 MG TABLET PO SCH ×2 (08:55→17:30)
[2017-05-15] MEDS: DOCUSATE SODIUM 100 MG CAPSULE PO SCH ×2 (08:56→21:00)
[2017-05-15] MEDS: OXYGEN THERAPY IH SCH ×2 (08:56→19:49)
[2017-05-15] MEDS: ASPIRIN 81 MG CHEWABLE TABLET PO SCH (08:56)
[2017-05-15] MEDS: AMITRIPTYLINE HCL 25 MG TABLET PO SCH (08:56)
[2017-05-15] MEDS: PANTOPRAZOLE SODIUM 40 MG/VIAL IVP SCH (08:56)
[2017-05-15] MEDS: CLOPIDOGREL BISULFATE 75 MG TABLET PO SCH (08:57)
[2017-05-15] MEDS: MONTELUKAST SODIUM 10 MG TABLET PO SCH (08:57)
[2017-05-15] MEDS ORDERED: CARVEDILOL 25 MG TABLET PO SCH (09:00)
[2017-05-15] MEDS ORDERED: ATORVASTATIN CALCIUM 40 MG TABLET PO SCH (09:00)
[2017-05-15] MEDS ORDERED: NIFEdipine 90 MG ER TABLET PO SCH (09:00)
[2017-05-15] MEDS: PROPOFOL 1000 MG/ISO-OSM 100 ML IV PRN (17:13)
[2017-05-15] MEDS ORDERED: SODIUM BICARBONATE [ADULT] 8.4% 50 MEQ/50 ML SYRINGE IVP ONE (17:31)
[2017-05-15] MEDS ORDERED: DOPamine HCL/D5W 400 MG/250 ML IV BAG IV ONE (17:31)
[2017-05-15] MEDS ORDERED: EPINEPHrine 1:10,000 [1 MG/10 ML] SYRINGE IVP ONE (17:31)
[2017-05-15 18:48] LABS: TEMPERATURE, FAHRENHEIT, BG 99.1 FAHREN (96.0-98.6)
[2017-05-15 19:02] LABS: ABG A-A DIFF O2 596.6 mmHg (10-20.0); ABG BASE EXCESS -2.7 mmol/L (-2.0-3.0); ABG HCO3 22.4 mmol/L (22.0-26.0); ABG OXYHEMOGLOBIN 91.3 % (94.0-100.0); ABG PCO2 38 mmHg (35-45); ABG PH 7.391 (7.35-7.450)
[2017-05-15 19:03] LABS: ALLEN TEST, BLOOD GAS POSITIVE
[2017-05-15] MEDS ORDERED: DOPamine HCL 400 MG/D5%-WATER 250 ML IV PRN (19:44)
[2017-05-15] MEDS: TraZODone HCL 100 MG TABLET PO SCH (21:00)
[2017-05-15] MEDS: INSULIN GLARGINE,HUM.REC.ANLOG 100 UNITS/ML SQ SCH (21:00)
[2017-05-15] MEDS ORDERED: PREGABALIN 25 MG CAPSULE PO SCH (21:00)
[2017-05-15] MEDS: CARVEDILOL 12.5 MG TABLET PO SCH (21:00)
[2017-05-16] VITALS (13 sets, daily range): BP systolic 100–171; BP diastolic 49–97
[2017-05-16 00:27] LABS: GLUCOSE COMMENT 1 Received Meds; GLUCOSE,POINT OF CARE 164 MG/DL (70-110)
[2017-05-16] MEDS ORDERED: SODIUM CHLORIDE 0.9% 500 ML IV ONE (01:23)
[2017-05-16] MEDS: AZTREONAM 0.5 GM in DEXTROSE 5%-WATER 50 ML IV SCH ×2 (01:27→13:21)
[2017-05-16] MEDS: MetroNIDAZOLE 500 MG/NACL 100 ML IV SCH ×3 (01:27→17:17)
[2017-05-16] MEDS: ALBUTEROL SULFATE 2.5 MG/0.5 ML NEB SOLUTION NEB SCH ×4 (02:30→20:19)
[2017-05-16] MEDS: IPRATROPIUM BROMIDE 0.5 MG/2.5 ML NEB SOLUTION NEB SCH ×4 (02:30→20:19)
[2017-05-16] MEDS: PROPOFOL 1000 MG/ISO-OSM 100 ML IV PRN ×4 (05:01→16:58)
[2017-05-16 05:18] LABS: CALCIUM, TOTAL 7.7 mg/dL (8.8-10.5); CREATININE 7.66 mg/dL (0.60-1.30); POTASSIUM 5.9 mmol/L (3.5-5.1)
[2017-05-16 05:26] LABS: EOSINOPHILS % (AUTO) 0.1 % (1.0-6.0); HEMATOCRIT 21.1 % (36-46); LYMPHOCYTES # (AUTO) 1.2 K/uL (1.0-4.8); LYMPHOCYTES % (AUTO) 4.6 % (22.0-44.0); MEAN CORPUSCULAR HEMOGLOBIN 26.8 pg (26.0-34.0); MEAN CORPUSCULAR HGB CONC 32.1 G/dL (31.0-37.0); MEAN CORPUSCULAR VOLUME 83 fL (80-100); MONOCYTES # (AUTO) 1.1 K/uL (0.1-1.0); MONOCYTES % (AUTO) 4.1 % (2.0-9.0); NEUTROPHILS # (AUTO) 24.3 K/uL (1.8-7.7); PLATELET COUNT (AUTO) 452 K/uL (150-450); RED BLOOD CELL COUNT(AUTO) 2.53 MIL/uL (4.00-5.20); RED CELL DISTRIBUTION WIDTH 21.6 % (11.5-14.5); WHITE BLOOD COUNT (AUTO) 26.6 K/uL (4.5-11.0)
[2017-05-16 05:51] LABS: HEMOGLOBIN 6.8 g/dL (12.0-16.0); NEUTROPHILS % (AUTO) 91.2 % (40.0-70.0)
[2017-05-16 06:47] LABS: GLUCOSE,POINT OF CARE 155 MG/DL (70-110)
[2017-05-16 06:47] LABS: GLUCOSE COMMENT 1 Received Meds; GLUCOSE,POINT OF CARE 188 MG/DL (70-110)
[2017-05-16] MEDS: OXYGEN THERAPY IH SCH ×2 (07:54→22:12)
[2017-05-16] MEDS: MONTELUKAST SODIUM 10 MG TABLET PO SCH (08:38)
[2017-05-16] MEDS: CLOPIDOGREL BISULFATE 75 MG TABLET PO SCH (08:38)
[2017-05-16] MEDS: ASPIRIN 81 MG CHEWABLE TABLET PO SCH (08:39)
[2017-05-16] MEDS: SEVELAMER CARBONATE 800 MG TABLET PO SCH ×2 (08:39→16:57)
[2017-05-16] MEDS: CARVEDILOL 12.5 MG TABLET PO SCH (08:39)
[2017-05-16] MEDS: DOCUSATE SODIUM 100 MG CAPSULE PO SCH ×2 (08:40→22:11)
[2017-05-16] MEDS: ATORVASTATIN CALCIUM 40 MG TABLET PO SCH (08:40)
[2017-05-16] MEDS: AMITRIPTYLINE HCL 25 MG TABLET PO SCH (08:40)
[2017-05-16] MEDS: PANTOPRAZOLE SODIUM 40 MG/VIAL IVP SCH (08:41)
[2017-05-16 09:40] LABS: RBC MORPHOLOGY COMMENT ABNORMAL RBC MORPH
[2017-05-16] MEDS ORDERED: SODIUM CHLORIDE 0.9% 2,000 ML IV ONE (12:58)
[2017-05-16 13:27] LABS: GLUCOSE,POINT OF CARE 135 MG/DL (70-110)
[2017-05-16 16:55] LABS: LACTIC ACID 0.5 mmol/L (0.4-2.0)
[2017-05-16] MEDS ORDERED: HydrALAZINE HCL 20 MG/ML VIAL IVP PRN (17:00)
[2017-05-16 17:22] LABS: PROCALCITONIN (PCT) 6.61 ng/mL (<0.50)
[2017-05-16 18:23] LABS: GLUCOSE,POINT OF CARE 106 MG/DL (70-110)
[2017-05-16] MEDS: INSULIN GLARGINE,HUM.REC.ANLOG 100 UNITS/ML SQ SCH (21:00)
[2017-05-16] MEDS: TraZODone HCL 100 MG TABLET PO SCH (22:11)
[2017-05-16] MEDS: CARVEDILOL 25 MG TABLET PO SCH (22:12)
[2017-05-16 23:22] LABS: GLUCOSE,POINT OF CARE 93 MG/DL (70-110)
[2017-05-17] VITALS: BP 108/54
[2017-05-17] MEDS: AZTREONAM 0.5 GM in DEXTROSE 5%-WATER 50 ML IV SCH ×2 (01:02→12:00)
[2017-05-17] MEDS: MetroNIDAZOLE 500 MG/NACL 100 ML IV SCH ×3 (01:03→17:28)
[2017-05-17] MEDS ORDERED: IOVERSOL 350 MG/ML 100 ML VIAL ONE (01:08)
[2017-05-17] MEDS ORDERED: SODIUM CHLORIDE 0.9% 100 ML ONE (01:08)
[2017-05-17] MEDS: PROPOFOL 1000 MG/ISO-OSM 100 ML IV PRN ×6 (01:16→22:17)
[2017-05-17] MEDS: ALBUTEROL SULFATE 2.5 MG/0.5 ML NEB SOLUTION NEB SCH ×4 (02:23→19:48)
[2017-05-17] MEDS: IPRATROPIUM BROMIDE 0.5 MG/2.5 ML NEB SOLUTION NEB SCH ×4 (02:23→19:48)
[2017-05-17 04:00] VITALS: BP 120/62
[2017-05-17] MEDS ORDERED: LEVOFLOXACIN 500 MG/D5% WATER 100 ML IV SCH (04:00)
[2017-05-17 04:59] LABS: EOSINOPHILS % (AUTO) 1.5 % (1.0-6.0); HEMATOCRIT 26.4 % (36-46); HEMOGLOBIN 8.8 g/dL (12.0-16.0); LYMPHOCYTES % (AUTO) 6.3 % (22.0-44.0); MEAN CORPUSCULAR HEMOGLOBIN 27.6 pg (26.0-34.0); MEAN CORPUSCULAR HGB CONC 33.2 G/dL (31.0-37.0); MEAN CORPUSCULAR VOLUME 83 fL (80-100); MONOCYTES # (AUTO) 0.8 K/uL (0.1-1.0); MONOCYTES % (AUTO) 4.8 % (2.0-9.0); NEUTROPHILS # (AUTO) 14.2 K/uL (1.8-7.7); PLATELET COUNT (AUTO) 417 K/uL (150-450); RED BLOOD CELL COUNT(AUTO) 3.17 MIL/uL (4.00-5.20); WHITE BLOOD COUNT (AUTO) 16.3 K/uL (4.5-11.0)
[2017-05-17 05:00] LABS: NEUTROPHILS % (AUTO) 87.4 % (40.0-70.0)
[2017-05-17 05:12] LABS: CALCIUM, TOTAL 8.6 mg/dL (8.8-10.5); CREATININE 4.29 mg/dL (0.60-1.30); MAGNESIUM 2.1 mg/dL (1.80-2.40); PHOSPHORUS 4.5 mg/dL (2.5-4.9); POTASSIUM 4.5 mmol/L (3.5-5.1)
[2017-05-17 07:37] LABS: RBC MORPHOLOGY COMMENT ABNORMAL RBC MORPH
[2017-05-17 08:00] VITALS: BP 122/71
[2017-05-17] MEDS: SEVELAMER CARBONATE 800 MG TABLET PO SCH ×2 (08:00→16:54)
[2017-05-17] MEDS: OXYGEN THERAPY IH SCH ×2 (08:00→20:11)
[2017-05-17] MEDS: CARVEDILOL 25 MG TABLET PO SCH ×2 (08:10→19:59)
[2017-05-17] MEDS: PANTOPRAZOLE SODIUM 40 MG/VIAL IVP SCH (08:11)
[2017-05-17] MEDS: DOCUSATE SODIUM 100 MG CAPSULE PO SCH ×2 (08:11→19:59)
[2017-05-17] MEDS: ATORVASTATIN CALCIUM 40 MG TABLET PO SCH (08:11)
[2017-05-17] MEDS: AMITRIPTYLINE HCL 25 MG TABLET PO SCH (08:11)
[2017-05-17] MEDS: MONTELUKAST SODIUM 10 MG TABLET PO SCH (08:11)
[2017-05-17 08:37] LABS: GLUCOSE,POINT OF CARE 111 MG/DL (70-110)
[2017-05-17] MEDS ORDERED: SODIUM CHLORIDE 0.9% 500 ML IV ONE (09:28)
[2017-05-17] MEDS ORDERED: VANCOMYCIN HCL 1.25 GM in DEXTROSE 5%-WATER 250 ML IV ONE (10:00)
[2017-05-17 11:32] LABS: ABG BASE EXCESS 0.1 mmol/L (-2.0-3.0); ABG HCO3 24.8 mmol/L (22.0-26.0); ABG OXYHEMOGLOBIN 93.3 % (94.0-100.0); ABG PCO2 33 mmHg (35-45); ABG PH 7.476 (7.35-7.450); TEMPERATURE, FAHRENHEIT, BG 98.3 FAHREN (96.0-98.6)
[2017-05-17 11:33] LABS: ALLEN TEST, BLOOD GAS Positive
[2017-05-17 12:00] VITALS: BP 108/43
[2017-05-17 14:48] LABS: GLUCOSE,POINT OF CARE 105 MG/DL (70-110)
[2017-05-17 16:00] VITALS: BP 114/52
[2017-05-17] MEDS: INSULIN GLARGINE,HUM.REC.ANLOG 100 UNITS/ML SQ SCH (19:52)
[2017-05-17] MEDS: TraZODone HCL 100 MG TABLET PO SCH (19:59)
[2017-05-17 20:00] VITALS: BP 121/52
[2017-05-17] MEDS: ACETAMINOPHEN 325 MG TABLET PO PRN (20:12)
[2017-05-17 20:13] LABS: GLUCOSE,POINT OF CARE 87 MG/DL (70-110)
[2017-05-18] VITALS: BP 107/42
[2017-05-18] MEDS: CefoTEtan DISODIUM 0.5 GM in DEXTROSE 5%-WATER 50 ML IV SCH ×2 (01:21→16:03)
[2017-05-18] MEDS: ALBUTEROL SULFATE 2.5 MG/0.5 ML NEB SOLUTION NEB SCH ×4 (02:01→19:34)
[2017-05-18] MEDS: IPRATROPIUM BROMIDE 0.5 MG/2.5 ML NEB SOLUTION NEB SCH ×4 (02:01→19:35)
[2017-05-18 04:00] VITALS: BP 122/51
[2017-05-18] MEDS: PROPOFOL 1000 MG/ISO-OSM 100 ML IV PRN ×5 (04:42→21:32)
[2017-05-18 05:34] LABS: EOSINOPHILS # (AUTO) 0.22 K/uL (0.00-0.70); EOSINOPHILS % (AUTO) 1.56 % (1.0-6.0); HEMATOCRIT 26.7 % (36-46); HEMOGLOBIN 8.7 g/dL (12.0-16.0); LYMPHOCYTES # (AUTO) 0.9 K/uL (1.0-4.8); LYMPHOCYTES % (AUTO) 6.7 % (22.0-44.0); MEAN CORPUSCULAR HEMOGLOBIN 27.2 pg (26.0-34.0); MEAN CORPUSCULAR HGB CONC 32.6 G/dL (31.0-37.0); MEAN CORPUSCULAR VOLUME 83 fL (80-100); MONOCYTES # (AUTO) 1.2 K/uL (0.1-1.0); MONOCYTES % (AUTO) 8.9 % (2.0-9.0); NEUTROPHILS # (AUTO) 11.6 K/uL (1.8-7.7); NEUTROPHILS % (AUTO) 82.9 % (40.0-70.0); PLATELET COUNT (AUTO) 428 K/uL (150-450); RED CELL DISTRIBUTION WIDTH 20.6 % (11.5-14.5); WHITE BLOOD COUNT (AUTO) 13.9 K/uL (4.5-11.0)
[2017-05-18 05:53] LABS: GLUCOSE,POINT OF CARE 93 MG/DL (70-110)
[2017-05-18 05:53] LABS: GLUCOSE,POINT OF CARE 85 MG/DL (70-110)
[2017-05-18 05:55] LABS: CREATININE 5.29 mg/dL (0.60-1.30); MAGNESIUM 2.2 mg/dL (1.80-2.40); PHOSPHORUS 5.4 mg/dL (2.5-4.9); POTASSIUM 4.4 mmol/L (3.5-5.1)
[2017-05-18 06:13] LABS: GLUCOSE,POINT OF CARE 100 MG/DL (70-110)
[2017-05-18] MEDS: OXYGEN THERAPY IH SCH ×2 (07:58→21:15)
[2017-05-18 08:00] VITALS: BP 130/64
[2017-05-18] MEDS: SEVELAMER CARBONATE 800 MG TABLET PO SCH ×2 (08:00→21:14)
[2017-05-18] MEDS: ATORVASTATIN CALCIUM 40 MG TABLET PO SCH (08:59)
[2017-05-18 09:00] VITALS: BP 128/58
[2017-05-18] MEDS: MONTELUKAST SODIUM 10 MG TABLET PO SCH (09:00)
[2017-05-18] MEDS: AMITRIPTYLINE HCL 25 MG TABLET PO SCH (09:00)
[2017-05-18] MEDS: OxyCODONE HCL/ACETAMINOPHEN 5-325 MG TABLET PO PRN (09:00)
[2017-05-18] MEDS: PANTOPRAZOLE SODIUM 40 MG/VIAL IVP SCH (09:00)
[2017-05-18] MEDS: EPOETIN ALFA 10,000 UNITS/ML VIAL SQ SCH (09:02)
[2017-05-18] MEDS: DOCUSATE SODIUM 100 MG CAPSULE PO SCH ×2 (09:03→21:15)
[2017-05-18] MEDS: CARVEDILOL 25 MG TABLET PO SCH ×2 (09:03→21:15)
[2017-05-18] MEDS: DAPTOMYCIN 500 MG in SODIUM CHLORIDE 0.9% 50 ML IV SCH (13:46)
[2017-05-18] MEDS ORDERED: SODIUM CHLORIDE 0.9% 2,000 ML IV ONE (14:53)
[2017-05-18] MEDS ORDERED: SODIUM CHLORIDE 0.9% 500 ML IV ONE (14:53)
[2017-05-18 16:00] VITALS: BP 116/57
[2017-05-18] MEDS ORDERED: LIDOCAINE HCL 4% 50 ML SOLUTION TP ONE (18:25)
[2017-05-18] MEDS ORDERED: EPINEPHrine 1:1,000 [1 MG/ML] AMP IM ONE (18:25)
[2017-05-18] MEDS ORDERED: LIDOCAINE HCL 2% 5 ML JELLY TP ONE (18:25)
[2017-05-18 20:00] VITALS: BP 116/52
[2017-05-18 20:18] LABS: GLUCOSE,POINT OF CARE 81 MG/DL (70-110)
[2017-05-18] MEDS: INSULIN GLARGINE,HUM.REC.ANLOG 100 UNITS/ML SQ SCH (21:00)
[2017-05-18] MEDS: TraZODone HCL 100 MG TABLET PO SCH (21:15)
[2017-05-19] VITALS: BP 126/54
[2017-05-19] MEDS: PROPOFOL 1000 MG/ISO-OSM 100 ML IV PRN ×6 (00:22→22:17)
[2017-05-19 00:42] LABS: GLUCOSE,POINT OF CARE 104 MG/DL (70-110)
[2017-05-19] MEDS: CefoTEtan DISODIUM 0.5 GM in DEXTROSE 5%-WATER 50 ML IV SCH ×2 (02:50→12:05)
[2017-05-19] MEDS: ALBUTEROL SULFATE 2.5 MG/0.5 ML NEB SOLUTION NEB SCH ×5 (03:24→22:32)
[2017-05-19] MEDS: IPRATROPIUM BROMIDE 0.5 MG/2.5 ML NEB SOLUTION NEB SCH ×5 (03:24→22:32)
[2017-05-19 04:19] VITALS: BP 115/56
[2017-05-19 05:24] LABS: CALCIUM, TOTAL 8.1 mg/dL (8.8-10.5); CREATININE 3.33 mg/dL (0.60-1.30); POTASSIUM 3.7 mmol/L (3.5-5.1)
[2017-05-19 06:24] LABS: BASOPHILS % (AUTO) 0.2 % (0.0-2.0); HEMATOCRIT 26.7 % (36-46); HEMOGLOBIN 8.8 g/dL (12.0-16.0); LYMPHOCYTES # (AUTO) 1.1 K/uL (1.0-4.8); LYMPHOCYTES % (AUTO) 6.3 % (22.0-44.0); MEAN CORPUSCULAR HEMOGLOBIN 27.3 pg (26.0-34.0); MEAN CORPUSCULAR HGB CONC 32.9 G/dL (31.0-37.0); MEAN CORPUSCULAR VOLUME 83 fL (80-100); MONOCYTES # (AUTO) 1.7 K/uL (0.1-1.0); MONOCYTES % (AUTO) 9.7 % (2.0-9.0); NEUTROPHILS # (AUTO) 14.6 K/uL (1.8-7.7); NEUTROPHILS % (AUTO) 82.8 % (40.0-70.0); PLATELET COUNT (AUTO) 427 K/uL (150-450); RED BLOOD CELL COUNT(AUTO) 3.22 MIL/uL (4.00-5.20); RED CELL DISTRIBUTION WIDTH 20.3 % (11.5-14.5); WHITE BLOOD COUNT (AUTO) 17.6 K/uL (4.5-11.0)
[2017-05-19] MEDS: OXYGEN THERAPY IH SCH ×2 (07:50→20:57)
[2017-05-19 08:00] VITALS: BP 130/77
[2017-05-19] MEDS: DOCUSATE SODIUM 100 MG CAPSULE PO SCH ×2 (10:41→20:57)
[2017-05-19] MEDS: MONTELUKAST SODIUM 10 MG TABLET PO SCH (10:42)
[2017-05-19] MEDS: ATORVASTATIN CALCIUM 40 MG TABLET PO SCH (10:42)
[2017-05-19] MEDS: CARVEDILOL 25 MG TABLET PO SCH ×2 (10:42→20:57)
[2017-05-19] MEDS: SEVELAMER CARBONATE 800 MG TABLET PO SCH ×2 (10:42→17:10)
[2017-05-19] MEDS: PANTOPRAZOLE SODIUM 40 MG/VIAL IVP SCH (10:42)
[2017-05-19] MEDS: AMITRIPTYLINE HCL 25 MG TABLET PO SCH (10:42)
[2017-05-19 11:41] LABS: ABG A-A DIFF O2 142.1 mmHg (10-20.0); ABG BASE EXCESS 1.6 mmol/L (-2.0-3.0); ABG HCO3 25.9 mmol/L (22.0-26.0); ABG OXYHEMOGLOBIN 91.2 % (94.0-100.0); ABG PCO2 36 mmHg (35-45); ABG PH 7.468 (7.35-7.450); ALLEN TEST, BLOOD GAS Positive; TEMPERATURE, FAHRENHEIT, BG 98.3 FAHREN (96.0-98.6)
[2017-05-19 11:58] LABS: GLUCOSE,POINT OF CARE 98 MG/DL (70-110)
[2017-05-19 12:00] VITALS: BP 108/55
[2017-05-19 12:08] LABS: GLUCOSE,POINT OF CARE 126 MG/DL (70-110)
[2017-05-19 12:08] LABS: GLUCOSE,POINT OF CARE 103 MG/DL (70-110)
[2017-05-19 16:00] VITALS: BP 110/47
[2017-05-19] MEDS ORDERED: LIDOCAINE HCL 2% 5 ML JELLY TP ONE (16:45)
[2017-05-19] MEDS ORDERED: ACETYLCYSTEINE 10% 100 MG/ML 30 ML ORAL SOLUTION PO ONE (16:45)
[2017-05-19 16:58] LABS: GLUCOSE,POINT OF CARE 118 MG/DL (70-110)
[2017-05-19 20:00] VITALS: BP 110/42
[2017-05-19] MEDS: TraZODone HCL 100 MG TABLET PO SCH (20:57)
[2017-05-19] MEDS: INSULIN GLARGINE,HUM.REC.ANLOG 100 UNITS/ML SQ SCH (21:00)
[2017-05-19] MEDS: ACETYLCYSTEINE 20% 200 MG/ML 4 ML NEB SOLUTION NEB SCH (21:19)
[2017-05-19 21:27] LABS: GLUCOSE,POINT OF CARE 116 MG/DL (70-110)
[2017-05-19] MEDS: ACETAMINOPHEN 325 MG TABLET PO PRN (22:01)
[2017-05-19] MEDS: FentaNYL CITRATE PF 500 MCG in DEXTROSE 5%-WATER 90 ML IV PRN (23:20)
[2017-05-20] VITALS: BP 94/54
[2017-05-20] MEDS: CefoTEtan DISODIUM 0.5 GM in DEXTROSE 5%-WATER 50 ML IV SCH ×2 (01:48→13:56)
[2017-05-20] MEDS: PROPOFOL 1000 MG/ISO-OSM 100 ML IV PRN ×4 (01:55→22:00)
[2017-05-20] MEDS: IPRATROPIUM BROMIDE 0.5 MG/2.5 ML NEB SOLUTION NEB SCH ×6 (03:09→22:44)
[2017-05-20] MEDS: ALBUTEROL SULFATE 2.5 MG/0.5 ML NEB SOLUTION NEB SCH ×6 (03:09→22:44)
[2017-05-20] MEDS: ACETYLCYSTEINE 20% 200 MG/ML 4 ML NEB SOLUTION NEB SCH ×4 (03:10→19:48)
[2017-05-20 04:00] VITALS: BP 92/36
[2017-05-20] MEDS: INSULIN ASPART 100 UNITS/ML SQ PRN (05:13)
[2017-05-20 05:26] LABS: CREATININE 4.43 mg/dL (0.60-1.30); HEMATOCRIT 26.8 % (36-46); MEAN CORPUSCULAR HEMOGLOBIN 27.8 pg (26.0-34.0); MEAN CORPUSCULAR HGB CONC 33.7 G/dL (31.0-37.0); MEAN CORPUSCULAR VOLUME 83 fL (80-100); PLATELET COUNT (AUTO) 439 K/uL (150-450); POTASSIUM 4.2 mmol/L (3.5-5.1); RED BLOOD CELL COUNT(AUTO) 3.24 MIL/uL (4.00-5.20); RED CELL DISTRIBUTION WIDTH 20.6 % (11.5-14.5)
[2017-05-20 05:32] LABS: WHITE BLOOD COUNT (AUTO) 46.2 K/uL (4.5-11.0)
[2017-05-20 06:52] LABS: GLUCOSE,POINT OF CARE 40 MG/DL (70-110)
[2017-05-20 06:52] LABS: GLUCOSE,POINT OF CARE 193 MG/DL (70-110)
[2017-05-20 06:52] LABS: GLUCOSE,POINT OF CARE 193 MG/DL (70-110)
[2017-05-20 06:52] LABS: GLUCOSE COMMENT 1 Repeated; GLUCOSE COMMENT 2 Juice/Food/D50 Given; GLUCOSE,POINT OF CARE 67 MG/DL (70-110)
[2017-05-20 07:53] LABS: BAND NEUTROPHILS % (MANUAL) 5 % (1-5); LYMPHOCYTES % (MANUAL) 1 % (22-44); REACTIVE LYMPHOCYTES 1 % (0-0); TOTAL CELLS COUNTED 100
[2017-05-20] MEDS: OXYGEN THERAPY IH SCH ×2 (07:53→21:08)
[2017-05-20 08:00] VITALS: BP 100/58
[2017-05-20] MEDS: SEVELAMER CARBONATE 800 MG TABLET PO SCH ×2 (08:10→16:56)
[2017-05-20] MEDS: PANTOPRAZOLE SODIUM 40 MG/VIAL IVP SCH (08:50)
[2017-05-20] MEDS: AMITRIPTYLINE HCL 25 MG TABLET PO SCH (08:50)
[2017-05-20] MEDS: ATORVASTATIN CALCIUM 40 MG TABLET PO SCH (08:51)
[2017-05-20] MEDS: DOCUSATE SODIUM 100 MG CAPSULE PO SCH ×2 (08:51→21:08)
[2017-05-20] MEDS: CARVEDILOL 25 MG TABLET PO SCH ×2 (08:51→21:00)
[2017-05-20] MEDS: MONTELUKAST SODIUM 10 MG TABLET PO SCH (08:53)
[2017-05-20] MEDS: DAPTOMYCIN 500 MG in SODIUM CHLORIDE 0.9% 50 ML IV SCH (11:00)
[2017-05-20] MEDS: SCOPOLAMINE HYDROBROMIDE 1.5 MG PATCH TD SCH (11:01)
[2017-05-20 11:24] LABS: ABG A-A DIFF O2 153.7 mmHg (10-20.0); ABG BASE EXCESS -1.4 mmol/L (-2.0-3.0); ABG HCO3 23.4 mmol/L (22.0-26.0); ABG OXYHEMOGLOBIN 86.4 % (94.0-100.0); ABG PCO2 35 mmHg (35-45); ABG PH 7.433 (7.35-7.450); TEMPERATURE, FAHRENHEIT, BG 98.6 FAHREN (96.0-98.6)
[2017-05-20 12:00] VITALS: BP 88/42
[2017-05-20 14:32] LABS: GLUCOSE COMMENT 1 Received Meds; GLUCOSE,POINT OF CARE 170 MG/DL (70-110)
[2017-05-20 16:00] VITALS: BP 101/49
[2017-05-20 18:18] LABS: GLUCOSE COMMENT 1 Received Meds; GLUCOSE,POINT OF CARE 134 MG/DL (70-110)
[2017-05-20 20:00] VITALS: BP 93/52
[2017-05-20] MEDS: INSULIN GLARGINE,HUM.REC.ANLOG 100 UNITS/ML SQ SCH (21:00)
[2017-05-20] MEDS: TraZODone HCL 100 MG TABLET PO SCH (21:07)
[2017-05-21] VITALS (8 sets, daily range): BP systolic 97–146; BP diastolic 42–75
[2017-05-21] MEDS: OxyCODONE HCL/ACETAMINOPHEN 5-325 MG TABLET PO PRN (00:25)
[2017-05-21] MEDS: CefoTEtan DISODIUM 0.5 GM in DEXTROSE 5%-WATER 50 ML IV SCH ×2 (00:25→13:10)
[2017-05-21] MEDS: INSULIN ASPART 100 UNITS/ML SQ PRN ×2 (00:27→23:41)
[2017-05-21 01:12] LABS: GLUCOSE COMMENT 1 Received Meds; GLUCOSE,POINT OF CARE 162 MG/DL (70-110)
[2017-05-21] MEDS: MetroNIDAZOLE 500 MG TABLET NG SCH ×4 (01:28→23:20)
[2017-05-21] MEDS: ALBUTEROL SULFATE 2.5 MG/0.5 ML NEB SOLUTION NEB SCH ×6 (02:28→23:28)
[2017-05-21] MEDS: IPRATROPIUM BROMIDE 0.5 MG/2.5 ML NEB SOLUTION NEB SCH ×6 (02:29→23:28)
[2017-05-21] MEDS: ACETYLCYSTEINE 20% 200 MG/ML 4 ML NEB SOLUTION NEB SCH ×4 (02:30→20:01)
[2017-05-21] MEDS: FentaNYL CITRATE PF 500 MCG in DEXTROSE 5%-WATER 90 ML IV PRN (03:33)
[2017-05-21] MEDS ORDERED: SODIUM CHLORIDE 0.9% 50 ML ONE (03:47)
[2017-05-21 08:09] LABS: HEMOGLOBIN 10.5 g/dL (12.0-16.0); MEAN CORPUSCULAR HEMOGLOBIN 27.5 pg (26.0-34.0); MEAN CORPUSCULAR HGB CONC 32.8 G/dL (31.0-37.0); MEAN CORPUSCULAR VOLUME 84 fL (80-100); PLATELET COUNT (AUTO) 461 K/uL (150-450); RED BLOOD CELL COUNT(AUTO) 3.82 MIL/uL (4.00-5.20); RED CELL DISTRIBUTION WIDTH 20.3 % (11.5-14.5); WHITE BLOOD COUNT (AUTO) 24.7 K/uL (4.5-11.0)
[2017-05-21 08:12] LABS: GLUCOSE,POINT OF CARE 131 MG/DL (70-110)
[2017-05-21 08:12] LABS: GLUCOSE,POINT OF CARE 136 MG/DL (70-110)
[2017-05-21 08:28] LABS: CALCIUM, TOTAL 9.2 mg/dL (8.8-10.5); CREATININE 5.53 mg/dL (0.60-1.30); POTASSIUM 4.8 mmol/L (3.5-5.1)
[2017-05-21] MEDS: OXYGEN THERAPY IH SCH ×2 (08:44→20:19)
[2017-05-21] MEDS: SEVELAMER CARBONATE 800 MG TABLET PO SCH ×2 (08:50→17:47)
[2017-05-21] MEDS: PANTOPRAZOLE SODIUM 40 MG/VIAL IVP SCH (08:50)
[2017-05-21] MEDS: AMITRIPTYLINE HCL 25 MG TABLET PO SCH (08:51)
[2017-05-21] MEDS: CARVEDILOL 25 MG TABLET PO SCH ×2 (08:51→20:19)
[2017-05-21] MEDS: DOCUSATE SODIUM 100 MG CAPSULE PO SCH ×2 (08:51→20:55)
[2017-05-21] MEDS: ATORVASTATIN CALCIUM 40 MG TABLET PO SCH (08:51)
[2017-05-21] MEDS: EPOETIN ALFA 10,000 UNITS/ML VIAL SQ SCH (08:52)
[2017-05-21] MEDS: MONTELUKAST SODIUM 10 MG TABLET PO SCH (08:52)
[2017-05-21] MEDS ORDERED: METOCLOPRAMIDE HCL 5 MG/ML 2 ML VIAL IVP SCH (10:15)
[2017-05-21 10:29] LABS: RBC MORPHOLOGY COMMENT ABNORMAL R
[2017-05-21 10:35] LABS: EOSINOPHILS % (MANUAL) 2 % (1-6); LYMPHOCYTES % (MANUAL) 6 % (22-44); TOTAL CELLS COUNTED 100
[2017-05-21 13:32] LABS: GLUCOSE,POINT OF CARE 117 MG/DL (70-110)
[2017-05-21] MEDS ORDERED: SODIUM CHLORIDE 0.9% 1,000 ML IV ONE (13:49)
[2017-05-21] MEDS ORDERED: NOREPINEPHRINE 4 MG/D5%-WATER 250 ML IV ONE (14:55)
[2017-05-21] MEDS ORDERED: NOREPINEPHRINE 4 MG/D5%-WATER 250 ML IV PRN (15:05)
[2017-05-21] MEDS: METOCLOPRAMIDE HCL 5 MG/ML 2 ML VIAL IVP SCH ×2 (17:47→23:20)
[2017-05-21 18:27] LABS: GLUCOSE,POINT OF CARE 117 MG/DL (70-110)
[2017-05-21] MEDS: INSULIN GLARGINE,HUM.REC.ANLOG 100 UNITS/ML SQ SCH (20:30)
[2017-05-21] MEDS: TraZODone HCL 100 MG TABLET PO SCH (21:30)
[2017-05-21] MEDS ORDERED: MEROPENEM 500 MG in SODIUM CHLORIDE 0.9% 50 ML IV SCH (22:00)
[2017-05-21] MEDS: PROPOFOL 1000 MG/ISO-OSM 100 ML IV PRN (23:20)
[2017-05-22] VITALS: BP 115/64
[2017-05-22] MEDS: IPRATROPIUM BROMIDE 0.5 MG/2.5 ML NEB SOLUTION NEB SCH ×6 (02:52→22:56)
[2017-05-22] MEDS: ACETYLCYSTEINE 20% 200 MG/ML 4 ML NEB SOLUTION NEB SCH ×4 (02:52→19:28)
[2017-05-22] MEDS: ALBUTEROL SULFATE 2.5 MG/0.5 ML NEB SOLUTION NEB SCH ×6 (02:52→22:56)
[2017-05-22] MEDS: PROPOFOL 1000 MG/ISO-OSM 100 ML IV PRN ×3 (02:57→12:44)
[2017-05-22 04:00] VITALS: BP 103/60
[2017-05-22] MEDS: FentaNYL CITRATE PF 500 MCG in DEXTROSE 5%-WATER 90 ML IV PRN (04:07)
[2017-05-22 07:02] LABS: HEMOGLOBIN 8.5 g/dL (12.0-16.0); MEAN CORPUSCULAR HEMOGLOBIN 27.3 pg (26.0-34.0); MEAN CORPUSCULAR HGB CONC 32.8 G/dL (31.0-37.0); MEAN CORPUSCULAR VOLUME 83 fL (80-100); PLATELET COUNT (AUTO) 468 K/uL (150-450); RED BLOOD CELL COUNT(AUTO) 3.12 MIL/uL (4.00-5.20); RED CELL DISTRIBUTION WIDTH 21.1 % (11.5-14.5); WHITE BLOOD COUNT (AUTO) 21.1 K/uL (4.5-11.0)
[2017-05-22] MEDS: OXYGEN THERAPY IH SCH ×2 (07:43→20:00)
[2017-05-22 08:00] VITALS: BP 97/56
[2017-05-22 08:23] LABS: CALCIUM, TOTAL 8.2 mg/dL (8.8-10.5); CREATININE 6.09 mg/dL (0.60-1.30); POTASSIUM 4.9 mmol/L (3.5-5.1)
[2017-05-22 08:32] LABS: GLUCOSE,POINT OF CARE 88 MG/DL (70-110)
[2017-05-22 08:32] LABS: GLUCOSE,POINT OF CARE 91 MG/DL (70-110)
[2017-05-22 08:32] LABS: GLUCOSE,POINT OF CARE 91 MG/DL (70-110)
[2017-05-22 08:32] LABS: GLUCOSE,POINT OF CARE 89 MG/DL (70-110)
[2017-05-22 08:35] LABS: PROCALCITONIN (PCT) 40.04 ng/mL (<0.50)
[2017-05-22] MEDS: CARVEDILOL 25 MG TABLET PO SCH ×2 (09:00→22:13)
[2017-05-22 09:27] LABS: BAND NEUTROPHILS % (MANUAL) 2 % (1-5); EOSINOPHILS % (MANUAL) 4 % (1-6); LYMPHOCYTES % (MANUAL) 19 % (22-44); TOTAL CELLS COUNTED 100
[2017-05-22 09:28] LABS: RBC MORPHOLOGY COMMENT ABNORMAL RBC MORPH
[2017-05-22] MEDS: PANTOPRAZOLE SODIUM 40 MG/VIAL IVP SCH (09:29)
[2017-05-22] MEDS: DOCUSATE SODIUM 100 MG CAPSULE PO SCH ×2 (09:30→22:13)
[2017-05-22] MEDS: MetroNIDAZOLE 500 MG TABLET NG SCH ×2 (09:30→17:37)
[2017-05-22] MEDS: AMITRIPTYLINE HCL 25 MG TABLET PO SCH (09:30)
[2017-05-22] MEDS: SEVELAMER CARBONATE 800 MG TABLET PO SCH ×2 (09:30→17:37)
[2017-05-22] MEDS: ATORVASTATIN CALCIUM 40 MG TABLET PO SCH (09:30)
[2017-05-22] MEDS: MONTELUKAST SODIUM 10 MG TABLET PO SCH (09:30)
[2017-05-22] MEDS: METOCLOPRAMIDE HCL 5 MG/ML 2 ML VIAL IVP SCH ×2 (09:30→17:37)
[2017-05-22 09:36] LABS: ABG A-A DIFF O2 129.9 mmHg (10-20.0); ABG OXYHEMOGLOBIN 92.9 % (94.0-100.0); ABG PCO2 37 mmHg (35-45); ABG PH 7.406 (7.35-7.450); TEMPERATURE, FAHRENHEIT, BG 98.3 FAHREN (96.0-98.6)
[2017-05-22] MEDS ORDERED: MANNITOL 25%-12.5 GM/50 ML VIAL IVP PRN (10:45)
[2017-05-22 12:00] VITALS: BP 110/57
[2017-05-22] MEDS: DAPTOMYCIN 500 MG in SODIUM CHLORIDE 0.9% 50 ML IV SCH (12:44)
[2017-05-22] MEDS ORDERED: *CLINICAL-RX DOSING [ENTER DRUG IN COMMENTS] CLINICAL ONE (13:30)
[2017-05-22] MEDS ORDERED: TIGECYCLINE 100 MG in SODIUM CHLORIDE 0.9% 100 ML IV ONE (15:00)
[2017-05-22] MEDS: AZTREONAM 0.5 GM in DEXTROSE 5%-WATER 50 ML IV SCH (15:24)
[2017-05-22 16:00] VITALS: BP 130/48
[2017-05-22 17:56] LABS: ABG BASE EXCESS 3.3 mmol/L (-2.0-3.0); ABG HCO3 27.3 mmol/L (22.0-26.0); ABG OXYHEMOGLOBIN 85.8 % (94.0-100.0); ABG PCO2 35 mmHg (35-45); ABG PH 7.498 (7.35-7.450); ALLEN TEST, BLOOD GAS Positive; TEMPERATURE, FAHRENHEIT, BG 98.2 FAHREN (96.0-98.6)
[2017-05-22 18:22] LABS: GLUCOSE,POINT OF CARE 93 MG/DL (70-110)
[2017-05-22 20:00] VITALS: BP 25/68
[2017-05-22 20:07] LABS: GLUCOSE,POINT OF CARE 79 MG/DL (70-110)
[2017-05-22] MEDS: TraZODone HCL 100 MG TABLET PO SCH (22:13)
[2017-05-23] VITALS: BP 112/48
[2017-05-23] MEDS: METOCLOPRAMIDE HCL 5 MG/ML 2 ML VIAL IVP SCH ×3 (01:29→16:03)
[2017-05-23] MEDS: AZTREONAM 0.5 GM in DEXTROSE 5%-WATER 50 ML IV SCH ×2 (01:29→15:01)
[2017-05-23] MEDS: TIGECYCLINE 50 MG in SODIUM CHLORIDE 0.9% 50 ML IV SCH ×2 (02:16→16:03)
[2017-05-23] MEDS: ACETYLCYSTEINE 20% 200 MG/ML 4 ML NEB SOLUTION NEB SCH ×4 (02:49→19:37)
[2017-05-23] MEDS: IPRATROPIUM BROMIDE 0.5 MG/2.5 ML NEB SOLUTION NEB SCH ×6 (02:50→23:10)
[2017-05-23] MEDS: ALBUTEROL SULFATE 2.5 MG/0.5 ML NEB SOLUTION NEB SCH ×6 (02:50→23:10)
[2017-05-23 04:00] VITALS: BP 131/54
[2017-05-23] MEDS ORDERED: SODIUM CHLORIDE 0.9% 250 ML IV ONE ×2 (05:18→12:23)
[2017-05-23 05:53] LABS: CALCIUM, TOTAL 8.1 mg/dL (8.8-10.5); CREATININE 3.62 mg/dL (0.60-1.30); POTASSIUM 4.1 mmol/L (3.5-5.1)
[2017-05-23 06:15] LABS: PROCALCITONIN (PCT) 32.47 ng/mL (<0.50)
[2017-05-23 06:57] LABS: GLUCOSE,POINT OF CARE 119 MG/DL (70-110)
[2017-05-23 06:57] LABS: GLUCOSE,POINT OF CARE 101 MG/DL (70-110)
[2017-05-23] MEDS: OXYGEN THERAPY IH SCH ×2 (07:56→20:43)
[2017-05-23 08:00] VITALS: BP 120/84
[2017-05-23] MEDS: SEVELAMER CARBONATE 800 MG TABLET PO SCH ×2 (08:00→17:30)
[2017-05-23] MEDS: MetroNIDAZOLE 500 MG TABLET NG SCH ×3 (08:00→16:00)
[2017-05-23 08:37] LABS: BASOPHILS % (AUTO) 0.7 % (0.0-2.0); EOSINOPHILS % (AUTO) 0.8 % (1.0-6.0); HEMATOCRIT 25.6 % (36-46); HEMOGLOBIN 8.5 g/dL (12.0-16.0); LYMPHOCYTES # (AUTO) 1.5 K/uL (1.0-4.8); MEAN CORPUSCULAR HEMOGLOBIN 27.4 pg (26.0-34.0); MEAN CORPUSCULAR HGB CONC 33.1 G/dL (31.0-37.0); MEAN CORPUSCULAR VOLUME 83 fL (80-100); MONOCYTES # (AUTO) 2.3 K/uL (0.1-1.0); MONOCYTES % (AUTO) 12.1 % (2.0-9.0); NEUTROPHILS # (AUTO) 14.6 K/uL (1.8-7.7); NEUTROPHILS % (AUTO) 78.4 % (40.0-70.0); PLATELET COUNT (AUTO) 571 K/uL (150-450); RED BLOOD CELL COUNT(AUTO) 3.08 MIL/uL (4.00-5.20); RED CELL DISTRIBUTION WIDTH 20.7 % (11.5-14.5); WHITE BLOOD COUNT (AUTO) 18.6 K/uL (4.5-11.0)
[2017-05-23] MEDS: AMITRIPTYLINE HCL 25 MG TABLET PO SCH (09:00)
[2017-05-23] MEDS: MONTELUKAST SODIUM 10 MG TABLET PO SCH (09:00)
[2017-05-23] MEDS: ATORVASTATIN CALCIUM 40 MG TABLET PO SCH (09:00)
[2017-05-23] MEDS: CARVEDILOL 25 MG TABLET PO SCH ×2 (09:00→20:42)
[2017-05-23] MEDS: DOCUSATE SODIUM 100 MG CAPSULE PO SCH ×2 (09:00→20:42)
[2017-05-23] MEDS: PANTOPRAZOLE SODIUM 40 MG/VIAL IVP SCH (09:41)
[2017-05-23] MEDS: EPOETIN ALFA 10,000 UNITS/ML VIAL SQ SCH (09:42)
[2017-05-23] MEDS: SCOPOLAMINE HYDROBROMIDE 1.5 MG PATCH TD SCH (09:43)
[2017-05-23] MEDS ORDERED: POLYMYXIN B SULFATE IV ONE (10:00)
[2017-05-23] MEDS ORDERED: WATER IV ONE (10:00)
[2017-05-23] MEDS ORDERED: DEXTROSE 5% IV ONE (10:00)
[2017-05-23 10:30] LABS: RBC MORPHOLOGY COMMENT ABNORMAL RBC MORPH
[2017-05-23 12:00] VITALS: BP 122/65
[2017-05-23] MEDS ORDERED: DEXTROSE 5% IV SCH ×2 (12:00→12:30)
[2017-05-23] MEDS ORDERED: WATER IV SCH ×2 (12:00→12:30)
[2017-05-23] MEDS ORDERED: POLYMYXIN B SULFATE IV SCH ×2 (12:00→12:30)
[2017-05-23 13:12] LABS: GLUCOSE,POINT OF CARE 99 MG/DL (70-110)
[2017-05-23 14:35] LABS: ALLEN TEST, BLOOD GAS Positive
[2017-05-23 14:36] LABS: ABG PCO2 40 mmHg (35-45); TEMPERATURE, FAHRENHEIT, BG 98.6 FAHREN (96.0-98.6)
[2017-05-23 14:37] LABS: ABG BASE EXCESS 2.1 mmol/L (-2.0-3.0); ABG HCO3 25.8 mmol/L (22.0-26.0); ABG OXYHEMOGLOBIN 70.2 % (94.0-100.0)
[2017-05-23] MEDS ORDERED: RAPID SEQUENCE KIT [RSI] 1 EACH KIT ONE ×2 (14:56)
[2017-05-23] MEDS: LORazepam 2 MG/ML VIAL IVP PRN (15:02)
[2017-05-23 16:00] VITALS: BP 119/54
[2017-05-23 18:13] LABS: GLUCOSE,POINT OF CARE 98 MG/DL (70-110)
[2017-05-23 20:00] VITALS: BP 152/72
[2017-05-23] MEDS: TraZODone HCL 100 MG TABLET PO SCH (20:43)
[2017-05-24] VITALS (11 sets, daily range): BP systolic 113–146; BP diastolic 45–70
[2017-05-24] MEDS ORDERED: WATER IV SCH ×2
[2017-05-24] MEDS ORDERED: POLYMYXIN B SULFATE IV SCH ×2
[2017-05-24] MEDS ORDERED: DEXTROSE 5% IV SCH ×2
[2017-05-24] MEDS: MetroNIDAZOLE 500 MG/NACL 100 ML IV SCH ×3 (00:46→15:28)
[2017-05-24] MEDS: METOCLOPRAMIDE HCL 5 MG/ML 2 ML VIAL IVP SCH ×2 (00:47→08:07)
[2017-05-24] MEDS ORDERED: SODIUM CHLORIDE 0.9% 250 ML IV ONE (01:09)
[2017-05-24] MEDS: LORazepam 2 MG/ML VIAL IVP PRN ×2 (01:36→21:02)
[2017-05-24] MEDS: IPRATROPIUM BROMIDE 0.5 MG/2.5 ML NEB SOLUTION NEB SCH ×6 (02:45→23:26)
[2017-05-24] MEDS: ACETYLCYSTEINE 20% 200 MG/ML 4 ML NEB SOLUTION NEB SCH ×4 (02:45→19:46)
[2017-05-24] MEDS: ALBUTEROL SULFATE 2.5 MG/0.5 ML NEB SOLUTION NEB SCH ×6 (02:45→23:26)
[2017-05-24] MEDS: AZTREONAM 0.5 GM in DEXTROSE 5%-WATER 50 ML IV SCH ×2 (03:16→13:53)
[2017-05-24] MEDS: TIGECYCLINE 50 MG in SODIUM CHLORIDE 0.9% 50 ML IV SCH ×2 (03:16→14:58)
[2017-05-24 06:11] LABS: CALCIUM, TOTAL 8.3 mg/dL (8.8-10.5); CREATININE 4.69 mg/dL (0.60-1.30); MAGNESIUM 3.3 mg/dL (1.80-2.40); PHOSPHORUS 5.2 mg/dL (2.5-4.9); POTASSIUM 4.2 mmol/L (3.5-5.1)
[2017-05-24 06:37] LABS: BASOPHILS % (AUTO) 0.1 % (0.0-2.0); EOSINOPHILS % (AUTO) 0.3 % (1.0-6.0); HEMATOCRIT 28.1 % (36-46); HEMOGLOBIN 9.3 g/dL (12.0-16.0); LYMPHOCYTES # (AUTO) 1.1 K/uL (1.0-4.8); LYMPHOCYTES % (AUTO) 4.5 % (22.0-44.0); MEAN CORPUSCULAR HEMOGLOBIN 27.5 pg (26.0-34.0); MEAN CORPUSCULAR HGB CONC 33.1 G/dL (31.0-37.0); MEAN CORPUSCULAR VOLUME 83 fL (80-100); MONOCYTES # (AUTO) 3.5 K/uL (0.1-1.0); MONOCYTES % (AUTO) 14.2 % (2.0-9.0); NEUTROPHILS # (AUTO) 19.8 K/uL (1.8-7.7); NEUTROPHILS % (AUTO) 80.9 % (40.0-70.0); PLATELET COUNT (AUTO) 562 K/uL (150-450); RED BLOOD CELL COUNT(AUTO) 3.38 MIL/uL (4.00-5.20); RED CELL DISTRIBUTION WIDTH 20.8 % (11.5-14.5); WHITE BLOOD COUNT (AUTO) 24.5 K/uL (4.5-11.0)
[2017-05-24 07:02] LABS: GLUCOSE,POINT OF CARE 142 MG/DL (70-110)
[2017-05-24 07:02] LABS: GLUCOSE,POINT OF CARE 92 MG/DL (70-110)
[2017-05-24] MEDS: SEVELAMER CARBONATE 800 MG TABLET PO SCH ×2 (08:00→18:20)
[2017-05-24] MEDS: OXYGEN THERAPY IH SCH ×2 (08:00→19:46)
[2017-05-24] MEDS: PANTOPRAZOLE SODIUM 40 MG/VIAL IVP SCH (08:07)
[2017-05-24 08:57] LABS: RBC MORPHOLOGY COMMENT ABNORMAL RBC MORPH
[2017-05-24] MEDS: ATORVASTATIN CALCIUM 40 MG TABLET PO SCH (09:00)
[2017-05-24] MEDS: DOCUSATE SODIUM 100 MG CAPSULE PO SCH ×2 (09:00→20:18)
[2017-05-24] MEDS: AMITRIPTYLINE HCL 25 MG TABLET PO SCH (09:00)
[2017-05-24] MEDS: CARVEDILOL 25 MG TABLET PO SCH ×2 (09:00→20:18)
[2017-05-24] MEDS: MONTELUKAST SODIUM 10 MG TABLET PO SCH (09:00)
[2017-05-24] MEDS: ACETAMINOPHEN 325 MG TABLET PO PRN ×3 (09:27→20:18)
[2017-05-24 12:18] LABS: GLUCOSE,POINT OF CARE 94 MG/DL (70-110)
[2017-05-24 15:30] LABS: ABG BASE EXCESS 0.2 mmol/L (-2.0-3.0); ABG HCO3 24.4 mmol/L (22.0-26.0); ABG OXYHEMOGLOBIN 70.7 % (94.0-100.0); ABG PCO2 36 mmHg (35-45); ALLEN TEST, BLOOD GAS Positive; TEMPERATURE, FAHRENHEIT, BG 98.2 FAHREN (96.0-98.6)
[2017-05-24 16:01] LABS: ABG A-A DIFF O2 377.5 mmHg (10-20.0); ABG HCO3 24.4 mmol/L (22.0-26.0); ABG OXYHEMOGLOBIN 80.1 % (94.0-100.0); ABG PCO2 37 mmHg (35-45); ABG PH 7.435 (7.35-7.450); TEMPERATURE, FAHRENHEIT, BG 98.1 FAHREN (96.0-98.6)
[2017-05-24 16:02] LABS: ALLEN TEST, BLOOD GAS Positive
[2017-05-24 18:13] LABS: GLUCOSE,POINT OF CARE 111 MG/DL (70-110)
[2017-05-24] MEDS: TraZODone HCL 100 MG TABLET PO SCH (20:18)
[2017-05-25] VITALS (9 sets, daily range): BP systolic 100–147; BP diastolic 37–73
[2017-05-25] MEDS: LEVOFLOXACIN 500 MG TABLET PO SCH
[2017-05-25] MEDS: OxyCODONE HCL/ACETAMINOPHEN 5-325 MG TABLET PO PRN ×2 (00:01→21:05)
[2017-05-25] MEDS: DAPTOMYCIN 500 MG in SODIUM CHLORIDE 0.9% 50 ML IV SCH (00:02)
[2017-05-25 02:17] LABS: GLUCOSE,POINT OF CARE 101 MG/DL (70-110)
[2017-05-25] MEDS: IPRATROPIUM BROMIDE 0.5 MG/2.5 ML NEB SOLUTION NEB SCH ×6 (02:47→22:45)
[2017-05-25] MEDS: ACETYLCYSTEINE 20% 200 MG/ML 4 ML NEB SOLUTION NEB SCH ×4 (02:47→19:36)
[2017-05-25] MEDS: ALBUTEROL SULFATE 2.5 MG/0.5 ML NEB SOLUTION NEB SCH ×6 (02:47→22:44)
[2017-05-25] MEDS: AZTREONAM 0.5 GM in DEXTROSE 5%-WATER 50 ML IV SCH ×2 (02:54→14:38)
[2017-05-25] MEDS: TIGECYCLINE 50 MG in SODIUM CHLORIDE 0.9% 50 ML IV SCH ×2 (02:54→15:39)
[2017-05-25] MEDS: LORazepam 2 MG/ML VIAL IVP PRN ×3 (04:11→17:47)
[2017-05-25 06:23] LABS: BASOPHILS % (AUTO) 0.1 % (0.0-2.0); EOSINOPHILS % (AUTO) 1.3 % (1.0-6.0); HEMATOCRIT 27.2 % (36-46); LYMPHOCYTES # (AUTO) 1.2 K/uL (1.0-4.8); LYMPHOCYTES % (AUTO) 6.1 % (22.0-44.0); MEAN CORPUSCULAR HEMOGLOBIN 27.9 pg (26.0-34.0); MEAN CORPUSCULAR HGB CONC 33.2 G/dL (31.0-37.0); MEAN CORPUSCULAR VOLUME 84 fL (80-100); MONOCYTES # (AUTO) 2.8 K/uL (0.1-1.0); MONOCYTES % (AUTO) 14.7 % (2.0-9.0); NEUTROPHILS # (AUTO) 14.9 K/uL (1.8-7.7); NEUTROPHILS % (AUTO) 77.8 % (40.0-70.0); PLATELET COUNT (AUTO) 584 K/uL (150-450); RED BLOOD CELL COUNT(AUTO) 3.24 MIL/uL (4.00-5.20); RED CELL DISTRIBUTION WIDTH 20.7 % (11.5-14.5); WHITE BLOOD COUNT (AUTO) 19.2 K/uL (4.5-11.0)
[2017-05-25 06:23] LABS: GLUCOSE,POINT OF CARE 96 MG/DL (70-110)
[2017-05-25] MEDS ORDERED: SODIUM CHLORIDE 0.9% 250 ML IV ONE ×3 (06:53→23:53)
[2017-05-25 07:41] LABS: CALCIUM, TOTAL 8.5 mg/dL (8.8-10.5); CREATININE 3.5 mg/dL (0.60-1.30); POTASSIUM 3.9 mmol/L (3.5-5.1)
[2017-05-25 07:46] LABS: MAGNESIUM 2.5 mg/dL (1.80-2.40); PHOSPHORUS 4.1 mg/dL (2.5-4.9)
[2017-05-25] MEDS: OXYGEN THERAPY IH SCH ×2 (07:59→20:00)
[2017-05-25] MEDS: SEVELAMER CARBONATE 800 MG TABLET PO SCH ×2 (08:21→19:07)
[2017-05-25] MEDS: MetroNIDAZOLE 500 MG TABLET PO SCH ×3 (08:21→16:48)
[2017-05-25] MEDS: CARVEDILOL 25 MG TABLET PO SCH ×2 (08:22→20:28)
[2017-05-25] MEDS: AMITRIPTYLINE HCL 25 MG TABLET PO SCH (08:22)
[2017-05-25] MEDS: TraZODone HCL 100 MG TABLET PO SCH ×2 (08:22→20:26)
[2017-05-25] MEDS: ATORVASTATIN CALCIUM 40 MG TABLET PO SCH (08:22)
[2017-05-25] MEDS: DOCUSATE SODIUM 100 MG CAPSULE PO SCH ×2 (08:22→20:27)
[2017-05-25] MEDS: PANTOPRAZOLE SODIUM 40 MG/VIAL IVP SCH (08:22)
[2017-05-25] MEDS: MONTELUKAST SODIUM 10 MG TABLET PO SCH (08:23)
[2017-05-25] MEDS: EPOETIN ALFA 10,000 UNITS/ML VIAL SQ SCH (08:25)
[2017-05-25 09:04] LABS: RBC MORPHOLOGY COMMENT ABNORMAL RBC MORPH
[2017-05-25] MEDS: ACETAMINOPHEN 325 MG TABLET PO PRN ×2 (09:38→16:49)
[2017-05-25] MEDS ORDERED: BISACODYL 10 MG RECTAL RECTAL SUPPOSITORY PR PRN (11:30)
[2017-05-25 12:22] LABS: GLUCOSE,POINT OF CARE 114 MG/DL (70-110)
[2017-05-25 19:47] LABS: GLUCOSE,POINT OF CARE 102 MG/DL (70-110)
[2017-05-26] VITALS (7 sets, daily range): BP systolic 111–144; BP diastolic 50–72
[2017-05-26] MEDS: MetroNIDAZOLE 500 MG TABLET PO SCH ×3 (00:14→17:37)
[2017-05-26] MEDS: LORazepam 2 MG/ML VIAL IVP PRN ×3 (00:15→21:05)
[2017-05-26] MEDS: IPRATROPIUM BROMIDE 0.5 MG/2.5 ML NEB SOLUTION NEB SCH ×7 (02:42→23:10)
[2017-05-26] MEDS: ALBUTEROL SULFATE 2.5 MG/0.5 ML NEB SOLUTION NEB SCH ×7 (02:42→23:11)
[2017-05-26] MEDS: ACETYLCYSTEINE 20% 200 MG/ML 4 ML NEB SOLUTION NEB SCH ×4 (02:42→19:32)
[2017-05-26] MEDS: AZTREONAM 0.5 GM in DEXTROSE 5%-WATER 50 ML IV SCH ×2 (03:21→15:19)
[2017-05-26] MEDS: TIGECYCLINE 50 MG in SODIUM CHLORIDE 0.9% 50 ML IV SCH ×2 (04:44→16:00)
[2017-05-26 05:47] LABS: GLUCOSE,POINT OF CARE 98 MG/DL (70-110)
[2017-05-26] MEDS: OXYGEN THERAPY IH SCH ×2 (08:00→19:33)
[2017-05-26] MEDS ORDERED: POLYMYXIN B SULFATE IV SCH (08:00)
[2017-05-26] MEDS ORDERED: DEXTROSE 5% IV SCH (08:00)
[2017-05-26] MEDS ORDERED: WATER IV SCH (08:00)
[2017-05-26] MEDS ORDERED: LIDOCAINE HCL/PF 1% 2 ML VIAL ID PRN (08:30)
[2017-05-26] MEDS ORDERED: MANNITOL 25%-12.5 GM/50 ML VIAL IVP PRN (08:30)
[2017-05-26] MEDS: LEVOFLOXACIN 500 MG TABLET PO SCH (09:00)
[2017-05-26] MEDS: ACETAMINOPHEN 325 MG TABLET PO PRN ×2 (09:43→21:05)
[2017-05-26] MEDS: DOCUSATE SODIUM 100 MG CAPSULE PO SCH ×2 (11:32→20:14)
[2017-05-26] MEDS: ATORVASTATIN CALCIUM 40 MG TABLET PO SCH (11:32)
[2017-05-26] MEDS: PANTOPRAZOLE SODIUM 40 MG/VIAL IVP SCH (11:32)
[2017-05-26] MEDS: SEVELAMER CARBONATE 800 MG TABLET PO SCH ×2 (11:33→17:37)
[2017-05-26] MEDS: MONTELUKAST SODIUM 10 MG TABLET PO SCH (11:33)
[2017-05-26] MEDS: CARVEDILOL 25 MG TABLET PO SCH ×2 (11:34→20:14)
[2017-05-26] MEDS: SCOPOLAMINE HYDROBROMIDE 1.5 MG PATCH TD SCH (11:34)
[2017-05-26] MEDS: AMITRIPTYLINE HCL 25 MG TABLET PO SCH (11:34)
[2017-05-26] MEDS: OxyCODONE HCL/ACETAMINOPHEN 5-325 MG TABLET PO PRN ×2 (11:47→16:00)
[2017-05-26] MEDS ORDERED: LIDOCAINE HCL/PF 1% 2 ML VIAL INJ ONE (12:00)
[2017-05-26] MEDS ORDERED: MANNITOL 25%-12.5 GM/50 ML VIAL IVP ONE (12:00)
[2017-05-26 14:52] LABS: GLUCOSE,POINT OF CARE 88 MG/DL (70-110)
[2017-05-26] MEDS: TraZODone HCL 100 MG TABLET PO SCH (20:14)
[2017-05-26 20:42] LABS: GLUCOSE,POINT OF CARE 94 MG/DL (70-110)
[2017-05-27] MEDS: ACETYLCYSTEINE 20% 200 MG/ML 4 ML NEB SOLUTION NEB SCH ×4 (02:16→19:32)
[2017-05-27] MEDS: IPRATROPIUM BROMIDE 0.5 MG/2.5 ML NEB SOLUTION NEB SCH ×6 (02:16→23:50)
[2017-05-27] MEDS: ALBUTEROL SULFATE 2.5 MG/0.5 ML NEB SOLUTION NEB SCH ×6 (02:17→23:50)
[2017-05-27] MEDS: TIGECYCLINE 50 MG in SODIUM CHLORIDE 0.9% 50 ML IV SCH ×2 (03:05→15:33)
[2017-05-27] MEDS: LORazepam 2 MG/ML VIAL IVP PRN (03:05)
[2017-05-27 04:28] VITALS: BP 140/59
[2017-05-27] MEDS: OXYGEN THERAPY IH SCH ×2 (07:34→19:32)
[2017-05-27 07:40] VITALS: BP 138/52
[2017-05-27 08:03] LABS: BILIRUBIN,TOTAL 0.6 mg/dL (0.1-1.0); CALCIUM, TOTAL 8.9 mg/dL (8.8-10.5); CREATININE 3.57 mg/dL (0.60-1.30); MAGNESIUM 2.4 mg/dL (1.80-2.40); POTASSIUM 4.1 mmol/L (3.5-5.1); TOTAL PROTEIN, SERUM 6.1 g/dL (6.4-8.2)
[2017-05-27 08:27] LABS: BASOPHILS # (AUTO) 0.02 K/uL (0.00-0.20); BASOPHILS % (AUTO) 0.1 % (0.0-2.0); EOSINOPHILS # (AUTO) 0.27 K/uL (0.00-0.70); EOSINOPHILS % (AUTO) 1.66 % (1.0-6.0); HEMATOCRIT 26.3 % (36-46); HEMOGLOBIN 8.6 g/dL (12.0-16.0); LYMPHOCYTES % (AUTO) 6.4 % (22.0-44.0); MEAN CORPUSCULAR HEMOGLOBIN 27.1 pg (26.0-34.0); MEAN CORPUSCULAR HGB CONC 32.9 G/dL (31.0-37.0); MEAN CORPUSCULAR VOLUME 83 fL (80-100); MONOCYTES % (AUTO) 12.3 % (2.0-9.0); NEUTROPHILS # (AUTO) 12.8 K/uL (1.8-7.7); NEUTROPHILS % (AUTO) 79.6 % (40.0-70.0); PLATELET COUNT (AUTO) 634 K/uL (150-450); RED BLOOD CELL COUNT(AUTO) 3.19 MIL/uL (4.00-5.20); RED CELL DISTRIBUTION WIDTH 21.5 % (11.5-14.5); WHITE BLOOD COUNT (AUTO) 16.1 K/uL (4.5-11.0)
[2017-05-27] MEDS: ATORVASTATIN CALCIUM 40 MG TABLET PO SCH (08:44)
[2017-05-27] MEDS: PANTOPRAZOLE SODIUM 40 MG/VIAL IVP SCH (08:44)
[2017-05-27] MEDS: MONTELUKAST SODIUM 10 MG TABLET PO SCH (08:44)
[2017-05-27] MEDS: DOCUSATE SODIUM 100 MG CAPSULE PO SCH ×2 (08:44→20:06)
[2017-05-27] MEDS: SEVELAMER CARBONATE 800 MG TABLET PO SCH ×2 (08:46→18:28)
[2017-05-27] MEDS: AMITRIPTYLINE HCL 25 MG TABLET PO SCH (08:49)
[2017-05-27] MEDS: CARVEDILOL 25 MG TABLET PO SCH ×2 (08:49→20:06)
[2017-05-27 10:54] LABS: RBC MORPHOLOGY COMMENT ABNORMAL RBC MORPH
[2017-05-27 11:11] VITALS: BP 141/57
[2017-05-27 16:09] VITALS: BP 111/79
[2017-05-27 19:59] VITALS: BP 152/62
[2017-05-27] MEDS: TraZODone HCL 100 MG TABLET PO SCH (20:06)
[2017-05-27] MEDS: OxyCODONE HCL/ACETAMINOPHEN 5-325 MG TABLET PO PRN (20:07)
[2017-05-28] VITALS: BP 132/74
[2017-05-28] MEDS: LORazepam 2 MG/ML VIAL IVP PRN (02:13)
[2017-05-28] MEDS: ALBUTEROL SULFATE 2.5 MG/0.5 ML NEB SOLUTION NEB SCH ×3 (03:34→11:29)
[2017-05-28] MEDS: ACETYLCYSTEINE 20% 200 MG/ML 4 ML NEB SOLUTION NEB SCH ×2 (03:34→07:38)
[2017-05-28] MEDS: IPRATROPIUM BROMIDE 0.5 MG/2.5 ML NEB SOLUTION NEB SCH ×3 (03:34→11:29)
[2017-05-28] MEDS: TIGECYCLINE 50 MG in SODIUM CHLORIDE 0.9% 50 ML IV SCH ×2 (03:55→14:21)
[2017-05-28 04:15] VITALS: BP 143/74
[2017-05-28 06:02] LABS: BASOPHILS # (AUTO) 0.02 K/uL (0.00-0.20); BASOPHILS % (AUTO) 0.1 % (0.0-2.0); EOSINOPHILS # (AUTO) 0.15 K/uL (0.00-0.70); EOSINOPHILS % (AUTO) 1.09 % (1.0-6.0); HEMATOCRIT 23.3 % (36-46); HEMOGLOBIN 7.4 g/dL (12.0-16.0); LYMPHOCYTES # (AUTO) 1.3 K/uL (1.0-4.8); LYMPHOCYTES % (AUTO) 9.5 % (22.0-44.0); MEAN CORPUSCULAR HEMOGLOBIN 26.9 pg (26.0-34.0); MEAN CORPUSCULAR HGB CONC 31.7 G/dL (31.0-37.0); MEAN CORPUSCULAR VOLUME 85 fL (80-100); MONOCYTES # (AUTO) 2.1 K/uL (0.1-1.0); MONOCYTES % (AUTO) 15.6 % (2.0-9.0); NEUTROPHILS # (AUTO) 9.9 K/uL (1.8-7.7); NEUTROPHILS % (AUTO) 73.6 % (40.0-70.0); PLATELET COUNT (AUTO) 520 K/uL (150-450); RED BLOOD CELL COUNT(AUTO) 2.74 MIL/uL (4.00-5.20); RED CELL DISTRIBUTION WIDTH 21.4 % (11.5-14.5); WHITE BLOOD COUNT (AUTO) 13.5 K/uL (4.5-11.0)
[2017-05-28 06:18] LABS: GLUCOSE,POINT OF CARE 77 MG/DL (70-110)
[2017-05-28 06:19] LABS: GLUCOSE,POINT OF CARE 83 MG/DL (70-110)
[2017-05-28 06:19] LABS: GLUCOSE,POINT OF CARE 95 MG/DL (70-110)
[2017-05-28 06:19] LABS: GLUCOSE,POINT OF CARE 72 MG/DL (70-110)
[2017-05-28 06:19] LABS: GLUCOSE,POINT OF CARE 81 MG/DL (70-110)
[2017-05-28 06:19] LABS: GLUCOSE,POINT OF CARE 80 MG/DL (70-110)
[2017-05-28 06:19] LABS: GLUCOSE,POINT OF CARE 75 MG/DL (70-110)
[2017-05-28 06:22] LABS: ALBUMIN 1.7 g/dL (3.4-5.0); BILIRUBIN,TOTAL 0.6 mg/dL (0.1-1.0); CALCIUM, TOTAL 8.4 mg/dL (8.8-10.5); CREATININE 4.69 mg/dL (0.60-1.30); MAGNESIUM 2.4 mg/dL (1.80-2.40); POTASSIUM 4.5 mmol/L (3.5-5.1); TOTAL PROTEIN, SERUM 5.3 g/dL (6.4-8.2)
[2017-05-28 07:19] VITALS: BP 133/60
[2017-05-28] MEDS: OXYGEN THERAPY IH SCH (08:22)
[2017-05-28] MEDS: PANTOPRAZOLE SODIUM 40 MG/VIAL IVP SCH (08:28)
[2017-05-28] MEDS: EPOETIN ALFA 10,000 UNITS/ML VIAL SQ SCH (08:29)
[2017-05-28] MEDS: DOCUSATE SODIUM 100 MG CAPSULE PO SCH (08:29)
[2017-05-28] MEDS: LEVOFLOXACIN 500 MG TABLET PO SCH (08:29)
[2017-05-28] MEDS: MONTELUKAST SODIUM 10 MG TABLET PO SCH (08:29)
[2017-05-28] MEDS: AMITRIPTYLINE HCL 25 MG TABLET PO SCH (08:29)
[2017-05-28] MEDS: ATORVASTATIN CALCIUM 40 MG TABLET PO SCH (08:29)
[2017-05-28] MEDS: CARVEDILOL 25 MG TABLET PO SCH (08:29)
[2017-05-28] MEDS: SEVELAMER CARBONATE 800 MG TABLET PO SCH (08:29)
[2017-05-28 10:56] LABS: RBC MORPHOLOGY COMMENT DIMORPHIC RBC
[2017-05-28 11:01] VITALS: BP 144/70
[2017-05-28] MEDS ORDERED: ACET104 NEB (12:54)
[2017-05-28] MEDS ORDERED: AUD NEB (12:55)
[2017-05-28] MEDS ORDERED: DSS100 PO (12:56)
[2017-05-28] MEDS ORDERED: EPOE20002 SQ (12:58)
[2017-05-28] MEDS ORDERED: IPRNEB IH (12:59)
[2017-05-28] MEDS ORDERED: LEVO500 PO (13:00)
[2017-05-28] MEDS ORDERED: MONT10TA21 PO (13:01)
[2017-05-28] MEDS ORDERED: PANT40I IV (13:01)
[2017-05-28] MEDS ORDERED: [UNRECOGNIZED DRUG - CODE] IV (13:03)
[2017-05-28] MEDS ORDERED: SCOP1PAT11 TD (13:04)
[2017-05-28] MEDS ORDERED: [UNRECOGNIZED DRUG - CODE] IV (13:04)
[2017-05-28] MEDS ORDERED: ACET-784 PO (13:05)
[2017-05-28] MEDS ORDERED: BISA5TAB12 PR (13:06)
[2017-05-28] MEDS ORDERED: LORA0.5T2 IVP (13:07)
[2017-05-28] MEDS ORDERED: OXYC500S2 PO (13:08)
[2017-05-30 13:47] LABS: GLUCOSE,POINT OF CARE 109 MG/DL (70-110)
== END 2017-05-28 15:30 | DRG 870 ==
LOC: EMS 21:50 → 5S 05-15 00:16 → ICU 05-15 16:30 → 5S 05-25 12:38
PROVIDERS: ADMIT Internal Medicine; ATTEND Internal Medicine
PROC: 5A1955Z Respiratory Ventilation, Greater than 96 Consecutive Hours (ICD-10-PCS; principal; 2017-05-15)
PROC: 0BH17EZ Insertion of Endotracheal Airway into Trachea, Via Natural or Artificial Opening (ICD-10-PCS; 2017-05-15)
PROC: 30233N1 Transfusion of Nonautologous Red Blood Cells into Peripheral Vein, Percutaneous Approach (ICD-10-PCS; 2017-05-16)
PROC: 5A1D70Z Performance of Urinary Filtration, Intermittent, Less than 6 Hours Per Day (ICD-10-PCS; 2017-05-16)
PROC: 5A1D70Z Performance of Urinary Filtration, Intermittent, Less than 6 Hours Per Day (ICD-10-PCS; 2017-05-18)
PROC: 0BC78ZZ Extirpation of Matter from Left Main Bronchus, Via Natural or Artificial Opening Endoscopic (ICD-10-PCS; 2017-05-18)
PROC: 0B978ZZ Drainage of Left Main Bronchus, Via Natural or Artificial Opening Endoscopic (ICD-10-PCS; 2017-05-19)
PROC: 5A1D70Z Performance of Urinary Filtration, Intermittent, Less than 6 Hours Per Day (ICD-10-PCS; 2017-05-21)
PROC: 5A1D70Z Performance of Urinary Filtration, Intermittent, Less than 6 Hours Per Day (ICD-10-PCS; 2017-05-22)
PROC: 5A1D70Z Performance of Urinary Filtration, Intermittent, Less than 6 Hours Per Day (ICD-10-PCS; 2017-05-24)
PROC: 5A1D70Z Performance of Urinary Filtration, Intermittent, Less than 6 Hours Per Day (ICD-10-PCS; 2017-05-26)
DX: A41.9 Sepsis, unspecified organism (principal); J69.0 Pneumonitis due to inhalation of food and vomit; E43 Unspecified severe protein-calorie malnutrition; J96.01 Acute respiratory failure with hypoxia; I13.2 Hypertensive heart and chronic kidney disease with heart failure and with stage 5 chronic kidney disease, or end stage renal disease; L89.159 Pressure ulcer of sacral region, unspecified stage; N18.6 End stage renal disease; I50.33 Acute on chronic diastolic (congestive) heart failure; N39.0 Urinary tract infection, site not specified; Z99.11 Dependence on respirator [ventilator] status; E87.1 Hypo-osmolality and hyponatremia; F99 Mental disorder, not otherwise specified; E11.22 Type 2 diabetes mellitus with diabetic chronic kidney disease; D63.1 Anemia in chronic kidney disease; B95.2 Enterococcus as the cause of diseases classified elsewhere; B95.7 Other staphylococcus as the cause of diseases classified elsewhere; E78.5 Hyperlipidemia, unspecified; E87.5 Hyperkalemia; F17.210 Nicotine dependence, cigarettes, uncomplicated; I25.10 Atherosclerotic heart disease of native coronary artery without angina pectoris; J44.9 Chronic obstructive pulmonary disease, unspecified; K59.00 Constipation, unspecified; Z16.24 Resistance to multiple antibiotics; M19.90 Unspecified osteoarthritis, unspecified site; E66.9 Obesity, unspecified; Z79.02 Long term (current) use of antithrombotics/antiplatelets; Z79.4 Long term (current) use of insulin; Z79.82 Long term (current) use of aspirin; Z79.899 Other long term (current) drug therapy; Z88.0 Allergy status to penicillin; Z90.710 Acquired absence of both cervix and uterus; Z91.15 Patient's noncompliance with renal dialysis; Z91.19 Patient's noncompliance with other medical treatment and regimen; Z95.5 Presence of coronary angioplasty implant and graft; Z99.2 Dependence on renal dialysis; Z68.31 Body mass index [BMI] 31.0-31.9, adult; Z78.1 Physical restraint status; Z71.6 Tobacco abuse counseling
CPT/HCPCS: 31624; 51702; 70450; 71260; 72125; 72193; 74160; 82270; 82805; 82962; 83540; 83550; 83605; 83735; 84100; 84145; 86850; 86900; 86901; 86920; 87015; 87040; 87070; 87077; 87081; 87086; 87101; 87205; 87220; 87340; 87804; 88108; 88312; 90935; 92610; 92950; 93005; 94002; 94003; 94640; 94644; 94667; 94668; 94799; 96365; 96366; 96375; 97166; 99291; C9113; G0238; J0171; J0360; J0878; J0885; J1265; J1815; J1956; J2060; J2150; J2185; J2270; J2405; J2704; J2765; J3010; J3243; J3370; J3490; J7030; J7040; J7050; J7060; P9016

== ENCOUNTER 2017-07-22 16:54 | Emergency (ER) | payer MEDICARE, MEDICAID ==
[~2017-07-22] VITALS: Ht 162.6 cm; Wt 72.7 kg
[~2017-07-22 16:54] MED LIST changes: +ACET-784 PO; +ASPI-1182 PO; -ASPI81TA39 PO; +ATOR20TA86 PO; -ATOR40TA28 PO; +AUD NEB; +BISA10S PR; -CARV25 PO; +CARV6 PO; -CLOP75 PO; +DSS100 PO; +EPOE20002 SQ; -FAMO20 PO; +FOLI1CAP2 PO; -GABA-529 PO; +HEPA500018 SQ; -INSLAN SQ; -INSNOV SQ; +IPRNEB IH; +METO25XL PO; +NICO-704 TD; -NIFE90TA38 PO; +PANT40TA25 PO; -PREG25 PO
[2017-07-22] MEDS ORDERED: IPRATROPIUM BROMIDE 0.5 MG/2.5 ML NEB SOLUTION NEB ONE (17:30)
[2017-07-22] MEDS ORDERED: PredniSONE 20 MG TABLET PO ONE (17:30)
[2017-07-22] MEDS ORDERED: ALBUTEROL SULFATE 5 MG/ML 20 ML NEB SOLN [BULK] NEB ONE (17:30)
[2017-07-22] MEDS ORDERED: ACETAMINOPHEN 500 MG TABLET PO ONE (17:30)
[2017-07-22 17:33] LABS: GLUCOSE,POINT OF CARE 131 MG/DL (70-110)
[2017-07-22 18:13] LABS: BASOPHILS % (AUTO) 0.6 % (0.0-2.0); EOSINOPHILS % (AUTO) 2.8 % (1.0-6.0); HEMATOCRIT 23.7 % (36-46); HEMOGLOBIN 7.7 g/dL (12.0-16.0); LYMPHOCYTES # (AUTO) 1.6 K/uL (1.0-4.8); LYMPHOCYTES % (AUTO) 11.2 % (22.0-44.0); MEAN CORPUSCULAR HEMOGLOBIN 29.4 pg (26.0-34.0); MEAN CORPUSCULAR HGB CONC 32.7 G/dL (31.0-37.0); MEAN CORPUSCULAR VOLUME 90 fL (80-100); MONOCYTES # (AUTO) 1.7 K/uL (0.1-1.0); MONOCYTES % (AUTO) 11.5 % (2.0-9.0); NEUTROPHILS # (AUTO) 10.6 K/uL (1.8-7.7); NEUTROPHILS % (AUTO) 73.9 % (40.0-70.0); PLATELET COUNT (AUTO) 309 K/uL (150-450); RED BLOOD CELL COUNT(AUTO) 2.63 MIL/uL (4.00-5.20); RED CELL DISTRIBUTION WIDTH 16.4 % (11.5-14.5)
[2017-07-22 18:20] LABS: CALCIUM, TOTAL 8.4 mg/dL (8.8-10.5); CREATININE 4.08 mg/dL (0.60-1.30); POTASSIUM 5.6 mmol/L (3.5-5.1)
[2017-07-22 18:25] LABS: ALBUMIN 2.1 g/dL (3.4-5.0); BILIRUBIN,TOTAL 0.5 mg/dL (0.1-1.0); TOTAL PROTEIN, SERUM 5.6 g/dL (6.4-8.2)
[2017-07-22 19:05] VITALS: BP 112/59
== END 2017-07-22 20:47 | disposition home or self-care (01) ==
LOC: EMS 16:55
DX: J44.9 Chronic obstructive pulmonary disease, unspecified (principal); R79.89 Other specified abnormal findings of blood chemistry; D63.1 Anemia in chronic kidney disease; I13.2 Hypertensive heart and chronic kidney disease with heart failure and with stage 5 chronic kidney disease, or end stage renal disease; E11.22 Type 2 diabetes mellitus with diabetic chronic kidney disease; N18.6 End stage renal disease; I50.9 Heart failure, unspecified; Z99.2 Dependence on renal dialysis; Z88.0 Allergy status to penicillin; Z87.891 Personal history of nicotine dependence
CPT/HCPCS: 36415; 71045; 80053; 82962; 84484; 85025; 93005; 94644; 99285; J7512

== ENCOUNTER 2017-07-26 03:21 | Emergency (ER) | payer MEDICARE, MEDICAID ==
[~2017-07-26] VITALS: Ht 165.1 cm; Wt 80.0 kg
[~2017-07-26 03:21] MED LIST changes: -NICO-704 TD
[2017-07-26] MEDS ORDERED: INSNOV SQ (03:32)
[2017-07-26] MEDS ORDERED: LORA0.5T83 PO (03:32)
[2017-07-26] MEDS ORDERED: SCOP1PAT11 TD (03:32)
[2017-07-26 03:38] LABS: GLUCOSE,POINT OF CARE 144 MG/DL (70-110)
[2017-07-26] MEDS ORDERED: HYDROCODONE/ACETAMINOPHEN 5-325 MG TABLET PO ONE (03:45)
[2017-07-26 04:12] LABS: BASOPHILS % (AUTO) 0.4 % (0.0-2.0); EOSINOPHILS % (AUTO) 0.1 % (1.0-6.0); HEMATOCRIT 24.9 % (36-46); HEMOGLOBIN 8.2 g/dL (12.0-16.0); LYMPHOCYTES # (AUTO) 1.4 K/uL (1.0-4.8); LYMPHOCYTES % (AUTO) 8.4 % (22.0-44.0); MEAN CORPUSCULAR HEMOGLOBIN 29.6 pg (26.0-34.0); MEAN CORPUSCULAR HGB CONC 33.1 G/dL (31.0-37.0); MEAN CORPUSCULAR VOLUME 89 fL (80-100); MONOCYTES # (AUTO) 1.7 K/uL (0.1-1.0); MONOCYTES % (AUTO) 10.3 % (2.0-9.0); NEUTROPHILS # (AUTO) 13.2 K/uL (1.8-7.7); NEUTROPHILS % (AUTO) 80.8 % (40.0-70.0); PLATELET COUNT (AUTO) 381 K/uL (150-450); RED BLOOD CELL COUNT(AUTO) 2.79 MIL/uL (4.00-5.20); RED CELL DISTRIBUTION WIDTH 16.7 % (11.5-14.5)
[2017-07-26 04:21] LABS: CALCIUM, TOTAL 8.2 mg/dL (8.8-10.5); CREATININE 4.01 mg/dL (0.60-1.30); POTASSIUM 4.3 mmol/L (3.5-5.1)
[2017-07-26 04:27] LABS: ALBUMIN 2.6 g/dL (3.4-5.0); BILIRUBIN,TOTAL 0.5 mg/dL (0.1-1.0); TOTAL PROTEIN, SERUM 6.2 g/dL (6.4-8.2)
[2017-07-26] MEDS ORDERED: FUROSEMIDE 40 MG/4 ML VIAL IVP ONE (04:30)
[2017-07-26 04:49] VITALS: BP 122/82
[2017-07-28 20:00] LABS: BASOPHILS % (AUTO) 0.1 % (0.0-2.0); EOSINOPHILS % (AUTO) 2.1 % (1.0-6.0); HEMATOCRIT 24.4 % (36-46); LYMPHOCYTES # (AUTO) 1.8 K/uL (1.0-4.8); LYMPHOCYTES % (AUTO) 10.6 % (22.0-44.0); MEAN CORPUSCULAR HEMOGLOBIN 29.3 pg (26.0-34.0); MEAN CORPUSCULAR HGB CONC 32.7 G/dL (31.0-37.0); MEAN CORPUSCULAR VOLUME 90 fL (80-100); MONOCYTES # (AUTO) 1.3 K/uL (0.1-1.0); MONOCYTES % (AUTO) 7.6 % (2.0-9.0); NEUTROPHILS # (AUTO) 13.2 K/uL (1.8-7.7); NEUTROPHILS % (AUTO) 79.6 % (40.0-70.0); PLATELET COUNT (AUTO) 381 K/uL (150-450); RED BLOOD CELL COUNT(AUTO) 2.72 MIL/uL (4.00-5.20)
== END 2017-07-26 05:19 | disposition home or self-care (01) ==
LOC: EMS 03:24
DX: N64.4 Mastodynia (principal); R60.9 Edema, unspecified; I11.0 Hypertensive heart disease with heart failure; I50.9 Heart failure, unspecified; I25.10 Atherosclerotic heart disease of native coronary artery without angina pectoris; J44.9 Chronic obstructive pulmonary disease, unspecified; E11.9 Type 2 diabetes mellitus without complications; Z79.4 Long term (current) use of insulin; Z88.0 Allergy status to penicillin; Z87.891 Personal history of nicotine dependence
CPT/HCPCS: 36415; 71045; 80053; 82962; 85025; 96374; 99285; J1940

== ENCOUNTER 2017-07-28 18:44 | Emergency (ER) | payer MEDICARE, MEDICAID ==
[~2017-07-28] VITALS: Ht 165.1 cm; Wt 81.8 kg
[~2017-07-28 18:44] MED LIST changes: -ACET-784 PO; -BISA10S PR; -DSS100 PO; -EPOE20002 SQ; -HEPA500018 SQ; +INSNOV SQ; -IPRNEB IH; +LORA0.5T83 PO; -METO25XL PO; +SCOP1PAT11 TD
[2017-07-28 20:15] LABS: CREATININE 2.96 mg/dL (0.60-1.30); POTASSIUM 3.9 mmol/L (3.5-5.1)
[2017-07-28 20:19] LABS: BASOPHILS % (AUTO) 0.2 % (0.0-2.0); EOSINOPHILS % (AUTO) 2.3 % (1.0-6.0); HEMATOCRIT 24.4 % (36-46); LYMPHOCYTES # (AUTO) 1.7 K/uL (1.0-4.8); LYMPHOCYTES % (AUTO) 10.4 % (22.0-44.0); MEAN CORPUSCULAR HEMOGLOBIN 29.4 pg (26.0-34.0); MEAN CORPUSCULAR HGB CONC 32.8 G/dL (31.0-37.0); MEAN CORPUSCULAR VOLUME 90 fL (80-100); MONOCYTES # (AUTO) 1.3 K/uL (0.1-1.0); MONOCYTES % (AUTO) 7.7 % (2.0-9.0); NEUTROPHILS # (AUTO) 13.2 K/uL (1.8-7.7); NEUTROPHILS % (AUTO) 79.4 % (40.0-70.0); PLATELET COUNT (AUTO) 368 K/uL (150-450); RED BLOOD CELL COUNT(AUTO) 2.73 MIL/uL (4.00-5.20); RED CELL DISTRIBUTION WIDTH 17.2 % (11.5-14.5)
[2017-07-28] MEDS ORDERED: ACETAMINOPHEN 500 MG TABLET PO ONE (21:45)
[2017-07-28 23:25] VITALS: BP 124/88
== END 2017-07-29 00:23 | disposition home or self-care (01) ==
LOC: EMS 18:46
DX: N64.4 Mastodynia (principal); Z79.4 Long term (current) use of insulin; Z88.0 Allergy status to penicillin; Z79.82 Long term (current) use of aspirin
CPT/HCPCS: 82962; 93005; 99285